=== PATIENT | female | born 1950 | race American Indian/Alaskan Native ===

== ENCOUNTER 2016-10-13 11:12 | Outpatient (CLI) | payer MEDICARE ==
--- NOTE | 2016-10-14 08:41 | Mammography Report ---
BILATERAL DIGITAL SCREENING MAMMOGRAM with CAD: 10/13/16 11:12:00 CLINICAL: Routine screening. COMPARISON: 02/13/14 FINDINGS: The breasts are predominant fatty with a few bilateral scattered fibroglandular densities.No mass, architectural distortion or suspicious calcifications. IMPRESSION: No mammographic evidence of malignancy. BI-RADS CATEGORY: 1 -- Negative RECOMMENDATION: Routine mammographic screening in one year. COMMENT: Patient follow-up letters are generated by our [employer] application.
== END 2016-10-13 11:13 | disposition home or self-care (01) ==
LOC: MAMMO 11:12
PROVIDERS: ATTEND Internal Medicine
DX: Z12.31 Encounter for screening mammogram for malignant neoplasm of breast (principal)
CPT/HCPCS: 77067; G0202

== ENCOUNTER 2017-01-19 08:45 | Outpatient (CLI) | payer MEDICARE ==
[2017-01-19 09:59] LABS: Alanine Aminotransferase 14 units/L (7-56); Albumin 4.3 g/dL (3.9-5); Albumin/Globulin Ratio 1.3 %; Alkaline Phosphatase 45 units/L (35-129); Anion Gap 21 mmol/L; Blood Urea Nitrogen 21 mg/dL (7-17); Calcium 9.9 mg/dL (8.4-10.2); Carbon Dioxide 22 mmol/L (22-30); Chloride 102.5 mmol/L (98-107); Cholesterol 175 mg/dL (50-199); Glucose 105 mg/dL (65-100); HDL Cholesterol 63 mg/dL (40-59); LDL Cholesterol,Direct 93 mg/dL (50-130); Sodium 141 mmol/L (137-145); Total Protein 7.6 g/dL (6.3-8.2); Triglycerides 97 mg/dL (2-149); Uric Acid 5.4 mg/dL (3.5-7.6)
[2017-01-19 10:12] LABS: Basophils % (Auto) 0.9 % (0.0-1.8); Eosinophils % (Auto) 2.8 % (0.0-4.3); Hematocrit 32.6 % (30.3-42.9); Hemoglobin 11.1 gm/dl (10.1-14.3); Mean Corpuscular HGB Conc 34 % (30-34); Mean Corpuscular Hemoglobin 29 pg (28-32); Mean Corpuscular Volume 86 fl (79-97); Platelet Count 183 K/mm3 (140-440); Red Blood Count 3.79 M/mm3 (3.65-5.03); Red Cell Distribution Width 13.6 % (13.2-15.2); White Blood Count 5.6 K/mm3 (4.5-11.0)
[2017-01-21 18:34] LABS: Vitamin D, 25-OH, Total 28 ng/mL (30-100)
== END 2017-01-19 08:46 | disposition home or self-care (01) ==
LOC: LABHHL 08:45
PROVIDERS: ATTEND Internal Medicine
DX: E11.9 Type 2 diabetes mellitus without complications (principal); I10 Essential (primary) hypertension; E78.00 Pure hypercholesterolemia, unspecified; F32.9 Major depressive disorder, single episode, unspecified; F41.9 Anxiety disorder, unspecified; Z79.899 Other long term (current) drug therapy
CPT/HCPCS: 36415; 80053; 80061; 82306; 82607; 83036; 84443; 84550; 85025

== ENCOUNTER 2017-11-23 09:28 | Outpatient (CLI) | payer MEDICARE ==
--- NOTE | 2017-11-23 14:41 | Mammography Report ---
BILATERAL MAMMOGRAM: FINDINGS: The breasts are almost entirely fat (<25% glandular). No mass, distortion, suspicious calcification, or skin change is seen. No interval change compared to prior examination in October 2016. CAD was utilized. IMPRESSION: Negative mammogram. There is no mammographic evidence of malignancy. RECOMMENDATION: Follow-up per ACS guidelines. BI-RADS CATEGORY: 1 = Negative ACR BI-RADS MAMMOGRAPHIC CODES: 0 = Needs additional imaging evaluation; 1 = Negative; 2 = Benign; 3 = Probably benign; 4 = Suspicious; 5 = Malignant; 6 = Known biopsy-proven malignancy COMMENT: 1. Dense breast tissue, i.e., adenosis, fibrocystic changes, etc., may obscure an underlying neoplasm. 2. Approximately 10% of cancers are not detected with mammography. 3. A negative mammography report should not delay biopsy if a clinically suspicious mass is present. COMMENT: Patient follow-up letters are generated in [employer].
== END 2017-11-23 09:29 | disposition home or self-care (01) ==
LOC: MAMMO 09:28
PROVIDERS: ATTEND Internal Medicine
DX: Z12.31 Encounter for screening mammogram for malignant neoplasm of breast (principal); I10 Essential (primary) hypertension; E78.00 Pure hypercholesterolemia, unspecified; K21.9 Gastro-esophageal reflux disease without esophagitis
CPT/HCPCS: 77067

== ENCOUNTER 2018-09-07 15:57 | Inpatient (IN) | payer MEDICARE ==
--- NOTE | 2018-09-07 16:53 | Emergency Department Report ---
HPI - General Chief Complaint: Fall Time Seen by Provider: 09/07/18 16:20 - HPI HPI: 68-year-old female presents to the emergency department from [place] via EMS with complaint of a unwitnessed fall. One of the employees of the psych facility is currently at bedside and says that they heard some sounds from down the [place]z and saw her on the ground. However she immediately got up and was seen walking around afterwards. She only has the complaint of some right-sided neck pain. She has a past medical history of hypertension. The patient is a poor historian. She is currently at the psych facility secondary to some hallucinations and/or delusions as stated on her 1013 which was placed on her yesterday at . The patient does not speak much Tajik and our patient life assurance representative, Cherelle, was helping with translation. ED Past Medical Hx - Past Medical History Hx Hypertension: Yes Hx Diabetes: Yes - Social History Smoking Status: Never Smoker Substance Use Type: None - Medications Home Medications: Home Medications Medication Instructions Recorded Confirmed Last Taken Type Aspirin BABY CHEW TAB 81 mg PO DAILY 09/17/15 09/17/15 09/15/15 History Fenofibrate 48 mg PO DAILY 09/17/15 09/17/15 09/16/15 History Potassium 8 meq PO DAILY 09/17/15 09/17/15 09/16/15 History RX: risperiDONE [RisperiDONE] 1 mg PO BID 09/17/15 09/17/15 09/16/15 History Valsartan/Hydrochlorothiazide 160 mg PO DAILY 09/17/15 09/17/15 09/17/15 History clonazePAM 0.5 mg PO DAILY 09/17/15 09/17/15 09/16/15 History clonazePAM 1 mg PO HS 09/17/15 09/17/15 09/16/15 History . ED Review of Systems ROS: Stated complaint: FALL Other details as noted in HPI Comment: All other systems reviewed and negative Constitutional: denies: chills, fever Eyes: denies: eye pain, vision change ENT: denies: ear pain, throat pain Respiratory: denies: cough, shortness of breath Cardiovascular: denies: chest pain, palpitations Gastrointestinal: denies: abdominal pain, vomiting Genitourinary: denies: dysuria, discharge Musculoskeletal: arthralgia. denies: back pain Skin: denies: rash, lesions Neurological: denies: headache, numbness Physical Exam - Physical Exam Vital Signs: Vital Signs 09/07/18 09/07/18 09/07/18 16:28 16:30 16:31 Temperature 97.8 F 97.8 F 97.7 F Pulse Rate 98 H 98 H 96 H Respiratory 18 18 18 Rate Blood Pressure 117/52 Blood Pressure 117/52 125/49 [Left] O2 Sat by Pulse 99 99 98 Oximetry Physical Exam: GENERAL: The patient is well-developed well-nourished. HEENT: Normocephalic. Atraumatic. Patient has moist mucous membranes. EYES: Extraocular motions are intact. Pupils are equal and reactive to light bilaterally. No nystagmus. NECK: Supple. Trachea is midline. CHEST/LUNGS: Clear to auscultation. There is no respiratory distress noted. HEART/CARDIOVASCULAR: Regular. There is no tachycardia. There is no obvious murmur. ABDOMEN: Abdomen is soft, nontender. Patient has normal bowel sounds. There is no abdominal distention. SKIN: Skin is warm and dry. NEURO: The patient is awake, alert, and oriented. The patient is cooperative. The patient has no focal neurologic deficits. The patient has normal speech. No facial asymmetry. No pronator drift. MUSCULOSKELETAL: There is no tenderness or deformity. There is no evidence of acute injury. ED Course Vital Signs 09/07/18 09/07/18 09/07/18 16:28 16:30 16:31 Temperature 97.8 F 97.8 F 97.7 F Pulse Rate 98 H 98 H 96 H Respiratory 18 18 18 Rate Blood Pressure 117/52 Blood Pressure 117/52 125/49 [Left] O2 Sat by Pulse 99 99 98 Oximetry ED Medical Decision Making - Lab Data Result diagrams: 09/07/18 16:56 09/07/18 16:56 - Radiology Data Radiology results: report reviewed PROCEDURE: CT CERVICAL SPINE WO CON TECHNIQUE: Computerized tomography of the cervical spine was performed from the skull base to T1 without contrast material. HISTORY: Trauma . Pain. COMPARISONS: None . FINDINGS: No fracture or subluxation is seen. The prevertebral soft tissues appear normal. Posterior elements appear intact. Mild facet arthritis visualized bilaterally. Bone density appears normal. Diffuse disc space narrowing is seen throughout the cervical spine. Bulky anterior osteophytic spurs are present throughout the mid cervical spine. Smaller posterior osteophytic spurs are present at C2-3 through the C6-C7 disc space greatest at C6-C7. There are posterior osteophytic spurs at C5-C6 obscure the anterior epidural space without definite cord compression. At C6-C7 these posterior osteophytic spurs obscuring the anterior epidural space and appear to be mildly compressing the anterior surface of the cord centrally. Calcifications are seen in the arredondo of the carotid arteries indicating atherosclerotic disease. Impression: No fracture or subluxation is seen. Degenerative disc disease and facet arthritis is present as described. Degenerative disc disease is greatest at the C6-C7 level with disc space narrowing and posterior osteophytic spurring obscuring the anterior epidural space and appears to be mildly compressing the anterior surface of the cord centrally. Posterior osteophytic spurs C5-C6 obscuring the anterior epidural space and appear to be resting on the cord. Additional small posterior osteophytic spurs are present at C2-3 through the C4-5 level. No facet arthritis. Atherosclerosis carotid arteries. . This document is electronically signed by Raza Eric MD., September 07 2018 05:41:14 PM ET Transcribed By: DFPanda Dictated By: RAZA ERIC MD Electronically Authenticated By: RAZA ERIC MD Signed Date/Time: 09/07/18 3889 PROCEDURE: CT HEAD/BRAIN WO CON TECHNIQUE: Computerized tomography of the head was performed without contrast material. HISTORY: Trauma . Pain. COMPARISONS: None . FINDINGS: Brain: Brain density appears normal. No evidence of intracranial hemorrhage. No parenchymal hemorrhage, mass lesions or mass effect are seen. No abnormal extra-axial fluid collects or masses are seen. Ventricles: Ventricles are normal size and are midline. Bone Windows: No evidence of skull fracture. Paranasal sinuses: Visualized portions are clear.. Mastoid air cells: Clear. IMPRESSION: Negative unenhanced CT of the brain. This document is electronically signed by Raza Eric MD., September 07 2018 05:35:12 PM ET Transcribed By: DFN Dictated By: RAZA ERIC MD Electronically Authenticated By: RAZA ERIC MD Signed Date/Time: 09/07/18 1738 - Medical Decision Making This patient presents to the emergency department from her psychiatric facility after having an unwitnessed fall. Her only complaint was pain to the right side of the neck. CT scan of the head did not show any bleed, shift, mass, ischemia or any other acute process. CT of the cervical spine did not show any fracture, subluxation or any acute process. Patient's labs were mostly unremarkable except for renal failure with a GFR of 28. The last time the patient was here, 3 months ago, she had normal kidney function. The patient's labs were mostly unremarkable including a CBC, troponin, TSH. Patient will be admitted to the hospital for further evaluation of her fall, generalized weakness, acute kidney injury. The patient has a [address] from her inpatient psychiatric facility. She was accepted for admission by the hospitalist, Dr. Sandoval. Critical Care Time: No Critical care attestation.: If time is entered above; I have spent that time in minutes in the direct care of this critically ill patient, excluding procedure time. ED Disposition Clinical Impression: Encephalopathy Schizophrenia Qualifiers: Schizophrenia type: unspecified Qualified Code(s): F20.9 - Schizophrenia, unspecified Acute renal failure Qualifiers: Acute renal failure type: unspecified Qualified Code(s): N17.9 - Acute kidney failure, unspecified Disposition: 09 OP ADMIT IP TO THIS HOSP Is pt being admited?: Yes Condition: Fair Time of Disposition: :29 - Assessment Assessment Interval: Baseline - Level of Consciousness 1a. Level of Consciousness: alert/keenly responsive - LOC Questions 1b. LOC Questions: answers both correctly - LOC Command 1c. LOC Commands: performs tasks correctly - Best Gaze 2. Best Gaze: normal - Visual 3. Visual: no visual loss - Facial Palsy 4. Facial Palsy: normal symmetrical movement - Motor Arm 5b. Motor Arm Right: no drift 5a. Motor Arm Left: no drift - Motor Leg 6b. Motor Leg Right: no drift 6a. Motor Leg Left: no drift - Limb Ataxia 7. Limb Ataxia: absent - Sensory 8. Sensory: normal - Best Language 9. Best Language: no aphasia - Dysarthria 10. Dysarthria: normal - Extinction and Inattention 11. Extinction/Inattention: no abnormality - Scoring Total Score: 0 Stroke Severity: No Stroke Symptoms
[2018-09-07 17:22] LABS: Basophils % (Auto) 0.5 % (0.0-1.8); Eosinophils # (Auto) 0.1 K/mm3 (0.0-0.4); Hematocrit 31.9 % (30.3-42.9); Hemoglobin 10.7 gm/dl (10.1-14.3); Lymphocytes # (Auto) 1.6 K/mm3 (1.2-5.4); Lymphocytes % (Auto) 27.5 % (13.4-35.0); Mean Corpuscular HGB Conc 34 % (30-34); Mean Corpuscular Volume 88 fl (79-97); Monocytes # (Auto) 0.5 K/mm3 (0.0-0.8); Platelet Count 225 K/mm3 (140-440); Red Blood Count 3.63 M/mm3 (3.65-5.03); Red Cell Distribution Width 14.2 % (13.2-15.2)
--- NOTE | 2018-09-07 17:38 | Cat Scan Report ---
PROCEDURE: CT HEAD/BRAIN WO CON TECHNIQUE: Computerized tomography of the head was performed without contrast material. HISTORY: Trauma . Pain. COMPARISONS: None . FINDINGS: Brain: Brain density appears normal. No evidence of intracranial hemorrhage. No parenchymal hemorr martha, mass lesions or mass effect are seen. No abnormal extra-axial fluid collects or masses are see n. Ventricles: Ventricles are normal size and are midline. Bone Windows: No evidence of skull fracture. Paranasal sinuses: Visualized portions are clear.. Mastoid air cells: Clear. IMPRESSION: Negative unenhanced CT of the brain. This document is electronically signed by Willi Arellano MD., September 07 2018 05:35:12 PM ET
--- NOTE | 2018-09-07 17:43 | Cat Scan Report ---
PROCEDURE: CT CERVICAL SPINE WO CON TECHNIQUE: Computerized tomography of the cervical spine was performed from the skull base to T1 wit hout contrast material. HISTORY: Trauma . Pain. COMPARISONS: None . FINDINGS: No fracture or subluxation is seen. The prevertebral soft tissues appear normal. Posterior elements a ppear intact. Mild facet arthritis visualized bilaterally. Bone density appears normal. Diffuse disc space narrowing is seen throughout the cervical spine. Bulky anterior osteophytic spurs are present t hroughout the mid cervical spine. Smaller posterior osteophytic spurs are present at C2-3 through the C6-C7 disc space greatest at C6-C7. There are posterior osteophytic spurs at C5-C6 obscure the anter ior epidural space without definite cord compression. At C6-C7 these posterior osteophytic spurs obsc uring the anterior epidural space and appear to be mildly compressing the anterior surface of the cor d centrally. Calcifications are seen in the arredondo of the carotid arteries indicating atherosclerotic disease. Impression: No fracture or subluxation is seen. Degenerative disc disease and facet arthritis is present as described. Degenerative disc disease is g reatest at the C6-C7 level with disc space narrowing and posterior osteophytic spurring obscuring the anterior epidural space and appears to be mildly compressing the anterior surface of the cord centra lly. Posterior osteophytic spurs C5-C6 obscuring the anterior epidural space and appear to be resting on the cord. Additional small posterior osteophytic spurs are present at C2-3 through the C4-5 level . No facet arthritis. Atherosclerosis carotid arteries. . This document is electronically signed by Willi Arellano MD., September 07 2018 05:41:14 PM ET
[2018-09-07 17:47] LABS: BUN/Creatinine Ratio 19; Blood Urea Nitrogen 40 mg/dL (7-17); Hemolysis Index 5
[2018-09-07] MEDS ORDERED: K-DUR PO ONE (17:49)
[2018-09-07] MEDS ORDERED: NACL 0.9% 1000 ML 1,000 ML IV ONE (17:52)
--- NOTE | 2018-09-07 19:53 | History and Physical Report ---
History of Present Illness Chief complaint: confused History of present illness: 68 YO Female who is currently a resident at [facility] with HTN, DM, Schizophrenia presents to ED for evaluation. Pt is confused and unable to provide detailed history. Pt history taken from EMS and medical record. As per staff, the patient was acting confused and experienced right sided neck pain, and subsequently fell to the ground. EMS notified, and upon arrival the patient was found to be confused. Pt transported to [facility] for further care and evaluation. Pt seen and evaluated in ED and found to have Encephalopathy, and symptoms co nsistent with CVA. Pt admitted to telemetry, and initiated on CVA protocol. 1013 placed in ED. No further history obtainable. Gas Pump Attendant present during exam and interview. No further history obtainable. Past History Past Medical History: diabetes, hypertension, other (Schizophrenia) Past Surgical History: No surgical history, Other (Unable to obtain) Social history: Family history: no significant family history (unable to obtain) Medications and Allergies Allergies Allergy/AdvReac Type Severity Reaction Status Date / Time No Known Allergies Allergy Verified 09/17/15 10:37 Home Medications Medication Instructions Recorded Confirmed Last Taken Type Aspirin BABY CHEW TAB 81 mg PO DAILY 09/17/15 09/17/15 09/15/15 History Fenofibrate 48 mg PO DAILY 09/17/15 09/17/15 09/16/15 History Potassium 8 meq PO DAILY 09/17/15 09/17/15 09/16/15 History Valsartan/Hydrochlorothiazide 160 mg PO DAILY 09/17/15 09/17/15 09/17/15 History clonazePAM 0.5 mg PO DAILY 09/17/15 09/17/15 09/16/15 History clonazePAM 1 mg PO HS 09/17/15 09/17/15 09/16/15 History . risperiDONE [RisperiDONE] 1 mg PO BID 09/17/15 09/17/15 09/16/15 History Review of Systems ROS unobtainable: due to mental status Exam - Constitutional Vitals: Temp Pulse Resp BP Pulse Ox 97.7 F 96 H 18 125/49 98 09/07/18 16:31 09/07/18 16:31 09/07/18 17:45 09/07/18 16:31 09/07/18 17:45 General appearance: Present: mild distress - EENT Eyes: Present: PERRL ENT: hearing intact, clear oral mucosa - Neck Neck: Present: supple, normal ROM - Respiratory Respiratory effort: normal Respiratory: bilateral: CTA - Cardiovascular Heart Sounds: Present: S1 & S2. Absent: rub, click - Extremities Extremities: pulses symmetrical, No edema Peripheral Pulses: within normal limits - Abdominal General gastrointestinal: Present: soft, non-tender, non-distended, normal bowel sounds Female genitourinary: Present: normal - Integumentary Integumentary: Present: clear, warm, dry - Musculoskeletal Musculoskeletal: generalized weakness - Psychiatric Psychiatric: no appropriate mood/affect, no intact judgment & insight, no memory intact - Neurologic Neurologic: CNII-XII intact, moves all extremities, no gait normal Results - Labs CBC & Chem 7: 09/07/18 16:56 03 16:56 Labs: Abnormal lab results 09/07/18 09/07/18 Range/Units 16:56 16:56 RBC 3.63 L (3.65-5.03) M/mm3 Cannon % (Auto) 9.0 H (0.0-7.3) % Potassium 3.3 L (3.6-5.0) mmol/L Carbon Dioxide 21 L (22-30) mmol/L BUN 40 H (7-17) mg/dL Creatinine 2.1 H (0.7-1.2) mg/dL Glucose 119 H (65-100) mg/dL Assessment and Plan - Patient Problems (1) CVA (cerebral vascular accident) Current Visit: Yes Status: Acute Qualifiers: Laterality of affected vessel: unspecified Plan to address problem: Admit to telemetry: CT head, MRI, MRA, Echo, Carotid doppler, Statin therapy, lipid panel, Neurology consulted, neuro checks, (2) Encephalopathy Current Visit: Yes Status: Acute Plan to address problem: CT head, neuro checks, seizure precautions, (3) Schizophrenia Current Visit: Yes Status: Acute Qualifiers: 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 - Assessment Assessment Interval: Baseline - Level of Consciousness 1a. Level of Consciousness: alert/keenly responsive - LOC Questions 1b. LOC Questions: answers both correctly - LOC Command 1c. LOC Commands: performs tasks correctly - Best Gaze 2. Best Gaze: normal - Visual 3. Visual: no visual loss - Facial Palsy 4. Facial Palsy: normal symmetrical movement - Motor Arm 5b. Motor Arm Right: no drift 5a. Motor Arm Left: no drift - Motor Leg 6b. Motor Leg Right: no movement 6a. Motor Leg Left: no drift - Limb Ataxia 7. Limb Ataxia: absent - Sensory 8. Sensory: normal - Best Language 9. Best Language: no aphasia - Dysarthria 10. Dysarthria: normal - Extinction and Inattention 11. Extinction/Inattention: no abnormality - Scoring Total Score: 4 Stroke Severity: Minor Stroke
[2018-09-07] MEDS ORDERED: ZOFRAN IV PRN (19:54)
[2018-09-07] MEDS ORDERED: DULCOLAX PR PRN (19:54)
[2018-09-07] MEDS ORDERED: MILK OF MAGNESIA PO PRN (19:54)
[2018-09-07] MEDS ORDERED: TYLENOL PO PRN (19:54)
[2018-09-07] MEDS ORDERED: REGLAN PO PRN (19:54)
[2018-09-07] MEDS ORDERED: SODIUM CHLORIDE FLUSH SYRINGE 10 ML IV PRN (19:54)
[2018-09-07] MEDS ORDERED: PHENERGAN PR PRN (19:54)
[2018-09-07] MEDS ORDERED: NON-FORMULARY (Clonazepam 1 MG) PO SCH (22:00)
[2018-09-07] MEDS: RisperDAL PO SCH (23:03)
[2018-09-08 09:30] LABS: Chol/HDL Ratio 2.34 %
[2018-09-08] MEDS ORDERED: FENOFIBRATE 48 MG PO SCH (10:00)
[2018-09-08] MEDS ORDERED: POTASSIUM 8 MEQ PO SCH (10:00)
[2018-09-08] MEDS ORDERED: CLONAZEPAM 0.5 MG PO SCH (10:00)
--- NOTE | 2018-09-08 11:58 | Magnetic Resonance Report ---
MRI BRAIN WITHOUT CONTRAST: 09/08/18 CLINICAL: Stroke. TECHNIQUE: Axial diffusion, T1, T2, gradient echo T2*, coronal and axial FLAIR and sagittal T1 sequences on a 1.5 Ana Cristina magnet. FINDINGS: The ventricles and sulci are normal for age. No restricted diffusion and no abnormal signal on T1, T2, FLAIR or gradient echo sequences. No cerebral microbleeds. No hemorrhage, edema or extra-axial collection. No mass or mass effect. Normal pituitary and optic chiasm. The brainstem and cerebellum are normal. Intact vascular flow voids. Normal sinuses. The orbits, and soft tissues are normal. Normal calvarium and skull base. IMPRESSION: Normal study. No evidence of infarct or hemorrhage.
--- NOTE | 2018-09-08 11:59 | Magnetic Resonance Report ---
MRA HEAD WITHOUT CONTRAST: 09/08/18 CLINICAL: Stroke. TECHNIQUE: Axial 3-D thys-bi-csslne MR angiography of the mcgrath of Delgado with review of axial source images. FINDINGS: Intact mcgrath of [place] with no aneurysm, stenosis or occlusion. Symmetric blood flow in the anterior, middle and posterior cerebral arteries. Normal basilar and vertebral arteries. IMPRESSION: Normal study.
[2018-09-08] MEDS: RisperDAL PO SCH ×2 (12:18→21:13)
[2018-09-08] MEDS: ASPIRIN PO SCH (12:18)
[2018-09-08] MEDS: TRICOR PO SCH (12:18)
--- NOTE | 2018-09-08 13:18 | Progress Note ---
Assessment and Plan Assessment and plan: Patient is a 68 woman from [facility] with a history of HTN, DM type 2 and Schizophrenia who presented to [facility] ED with AMS, admitted to rule out CVA. * 2D ECHO Conclusions: Global left ventricular wall motion and contractility are within normal limits, estimated EF 55-60%, abnormal left ventricular diastolic filling is observed consistent with impaired relaxation, no atrial septal defected is demonstrated by agitated saline contrast -AMS due to acute undifferentiated metabolic encephalopathy -Schizophrenia: mental health to evaluate, under 1013 -no CVA, negative mri, mra for acute stroke -DM type 2: ada, ssi -Hypertension: low salt diet and antihypertensives. History Interval history: Patient was seen and examined. Follow-up on current diagnosis. Overnight uneventful. Patient denies any chest pain, shortness breath, nausea/vomiting or severe headaches. Imaging, nursing note, chart, labs and old chart reviewed. Discussed with patient. Hospitalist Physical - Physical exam Narrative exam: Gen: WDWN, NAD, Awake, taking incomprehensible things using Language line HEENT: NCAT, EOMI, PERRL, OP Clear Neck: supple, no adenopathy, no thyromegaly, no JVD CVS/Heart: RRR, normal S1S2, pulses present bilaterally Chest/Lungs: CTA B, Symmetrical chest expansion, good air entry bilaterally GI/Abdomen: soft, NTND, good bowel sounds, no guarding or rebound /Bladder: no suprapubic tenderness, no CVA or paraspinal tenderness Extermity/Skin: no c/c/e, no obvious rash MSK: FROM x 4 Neuro: CN 2-12 grossly intact, no new focal deficits Psych: confused - Constitutional Vitals: Temp Pulse Resp BP Pulse Ox 98.1 F 99 H 18 118/52 99 09/08/18 12:37 09/08/18 12:37 09/08/18 12:37 09/08/18 12:37 09/08/18 12:37 Results - Labs CBC & Chem 7: 09/07/18 16:56 09/07/18 16:56 Labs: Laboratory Last Values WBC 5.7 K/mm3 (4.5-11.0) 09/07/18 16:56 RBC 3.63 M/mm3 (3.65-5.03) L 09/07/18 16:56 Hgb 10.7 gm/dl (10.1-14.3) 09/07/18 16:56 Hct 31.9 % (30.3-42.9) 09/07/18 16:56 MCV 88 fl (79-97) 09/07/18 16:56 MCH 30 pg (28-32) 09/07/18 16:56 MCHC 34 % (30-34) 09/07/18 16:56 RDW 14.2 % (13.2-15.2) 09/07/18 16:56 Plt Count 225 K/mm3 (140-440) 09/07/18 16:56 Lymph % (Auto) 27.5 % (13.4-35.0) 09/07/18 16:56 Schleicher % (Auto) 9.0 % (0.0-7.3) H 09/07/18 16:56 Eos % (Auto) 1.0 % (0.0-4.3) 09/07/18 16:56 Baso % (Auto) 0.5 % (0.0-1.8) 09/07/18 16:56 Lymph # 1.6 K/mm3 (1.2-5.4) 09/07/18 16:56 Schleicher # 0.5 K/mm3 (0.0-0.8) 09/07/18 16:56 Eos # 0.1 K/mm3 (0.0-0.4) 09/07/18 16:56 Baso # 0.0 K/mm3 (0.0-0.1) 09/07/18 16:56 Seg Neutrophils % 62.0 % (40.0-70.0) 09/07/18 16:56 Seg Neutrophils # 3.6 K/mm3 (1.8-7.7) 09/07/18 16:56 Sodium 140 mmol/L (137-145) 09/07/18 16:56 Potassium 3.3 mmol/L (3.6-5.0) L 09/07/18 16:56 Chloride 102.1 mmol/L (98-107) 09/07/18 16:56 Carbon Dioxide 21 mmol/L (22-30) L 09/07/18 16:56 Anion Gap 20 mmol/L 09/07/18 16:56 BUN 40 mg/dL (7-17) H 09/07/18 16:56 Creatinine 2.1 mg/dL (0.7-1.2) H 09/07/18 16:56 Estimated GFR 28 ml/min 09/07/18 16:56 BUN/Creatinine Ratio 19 % 09/07/18 16:56 Glucose 119 mg/dL (65-100) H 09/07/18 16:56 Calcium 9.0 mg/dL (8.4-10.2) 09/07/18 16:56 Troponin T < 0.010 ng/mL (0.00-0.029) 09/07/18 16:56 Triglycerides 139 mg/dL (2-149) 09/08/18 05:25 Cholesterol 110 mg/dL (50-199) 09/08/18 05:25 LDL Cholesterol Direct 54 mg/dL (50-130) 09/08/18 05:25 HDL Cholesterol 47 mg/dL (40-59) 09/08/18 05:25 Cholesterol/HDL Ratio 2.34 % 09/08/18 05:25 TSH 2.260 mlU/mL (0.270-4.200) 09/07/18 16:56
--- NOTE | 2018-09-08 14:29 | Consultation ---
History of Present Illness - Reason for Consult Consult date: 09/08/18 Reason for consult: Initial Psychiatric Evaluation - Chief Complaint Chief complaint: Fine" - History of Present Psychiatric Illness Patient is a 68-year-old female that presents to the emergency department from [facility] via EMS with complaint of a unwitnessed fall. One of the employees of the psych facility is currently at bedside and says that they heard some sounds from down the [place] and saw her on the ground. Today patient is calm and cooperative during the assessment. Her nephew, sister, and brother are at the bedside. Per collateral patient has a past psychiatric history of schizophrenia. Patient was admitted to [facility] for psychosis and being noncompliant with medication. Family is requesting that patient do not return to [facility] and be transferred to another psychiatric facility. Per family/sister patient is confused and disoriented. Current Psychiatric Medications: Klonopin 0.5 mg po QAM, Klonopin 1mg po qhs, Clozapine 200mg po QHS, Risperdal 1mg po QHS- provider seen rx bottles. Past Psychiatric History: Schizophrenia (15 years ago); More than 5 previous inpatient hospitalizations ( [place] and [place]); outpatient psychiatrist Dr. Dalton; per family " no." Past Medication Trials: Valium. Other medication names are unknown. History Drug/Substance Abuse: Per collateral patient denies. History of Trauma/Abuse: Per collateral patient denies sexual, physical, and mental abuse. Social History: College graduate- [employer]; monthly income- social security/disability; no children; no pending legal issues; . Family History of Psychiatric Illness/ Substance Abuse: Brother- paranoid angelica [place]. Medications and Allergies Allergies Allergy/AdvReac Type Severity Reaction Status Date / Time No Known Allergies Allergy Verified 09/17/15 10:37 Home Medications Medication Instructions Recorded Confirmed Last Taken Type Aspirin BABY CHEW TAB 81 mg PO DAILY 09/17/15 09/08/18 3 Days Ago History ~09/05/18 Fenofibrate 48 mg PO DAILY 09/17/15 09/08/18 3 Days Ago History ~09/05/18 Potassium 8 meq PO DAILY 09/17/15 09/08/18 3 Days Ago History ~09/05/18 Valsartan/Hydrochlorothiazide 160 mg PO DAILY 09/17/15 09/08/18 3 Days Ago History ~09/05/18 clonazePAM 0.5 mg PO DAILY 09/17/15 09/08/18 3 Days Ago History ~09/05/18 clonazePAM 1 mg PO HS 09/17/15 09/08/18 3 Days Ago History ~09/05/18 risperiDONE [RisperiDONE] 1 mg PO BID 09/17/15 09/08/18 3 Days Ago History ~09/05/18 cloZAPine 200 mg PO QHS 09/08/18 09/08/18 3 Days Ago History ~09/05/18 Active Meds: Active Medications Acetaminophen (Tylenol) 650 mg PO Q4H PRN PRN Reason: Pain, Mild (1-3) Aspirin (Aspirin) 325 mg PO QDAY [facility] Last Admin: 09/08/18 12:18 Dose: 325 mg Documented by: Atorvastatin Calcium (Lipitor) 40 mg PO QHS [facility] Last Admin: 09/07/18 23:03 Dose: 40 mg Documented by: Bisacodyl (Dulcolax) 10 mg [place] QDAY PRN PRN Reason: Constipation Clonazepam (Klonopin) 0.5 mg PO QDAY [facility] Last Admin: 09/08/18 12:18 Dose: 0.5 mg Documented by: Clonazepam (Klonopin) 1 mg PO QHS [facility] Last Admin: 09/07/18 23:03 Dose: 1 mg Documented by: Fenofibrate (Tricor) 48 mg PO DAILY [facility] Last Admin: 09/08/18 12:18 Dose: 48 mg Documented by: Magnesium Hydroxide (Milk Of Magnesia) 30 ml PO Q4H PRN PRN Reason: Constipation Metoclopramide HCl (Reglan) 10 mg PO Q6H PRN PRN Reason: Nausea And Vomiting Ondansetron HCl (Zofran) 4 mg IV Q8H PRN PRN Reason: Nausea And Vomiting Potassium Chloride (Klor-Con 8) 8 meq PO QDAY [facility] Promethazine HCl (Phenergan) 25 mg [place] Q6H PRN PRN Reason: Nausea And Vomiting Risperidone (Risperdal) 1 mg PO BID [facility] Last Admin: 09/08/18 12:18 Dose: 1 mg Documented by: Sodium Chloride (Sodium Chloride Flush Syringe 10 Ml) 10 ml IV PRN PRN PRN Reason: LINE FLUSH Mental Status Exam - Vital signs Last Vital Signs Temp 98.1 F 09/08/18 12:37 Pulse 99 H 09/08/18 12:37 Resp 18 09/08/18 12:37 BP 118/52 09/08/18 12:37 Pulse Ox 99 09/08/18 12:37 - Exam Narrative exam: Mental Status Exam Appearance: calm, cooperative Behavior: regular eye contact; guarded/withdrawn Speech: regular rate and loud tone; Italian speaking Mood: "I'm fine"; dysphoric Affect: incongruent to mood Thought Process: linear Thought Content: denies SI/HI's ; + AH's " The voices tell me people are in danger." ; denies paranoid delusions and VH's Motor Activity: sitting up in the bed Cognition: A/O x 1 to person; disoriented to place and time Insight: variable Judgment: variable Results Result Diagrams: 09/07/18 16:56 09/07/18 16:56 Abnormal lab results 09/07/18 09/07/18 Range/Units 16:56 16:56 RBC 3.63 L (3.65-5.03) M/mm3 [place] % (Auto) 9.0 H (0.0-7.3) % Potassium 3.3 L (3.6-5.0) mmol/L Carbon Dioxide 21 L (22-30) mmol/L BUN 40 H (7-17) mg/dL Creatinine 2.1 H (0.7-1.2) mg/dL Glucose 119 H (65-100) mg/dL All other labs normal. Assessment and Plan Assessment and plan: Impression: PPHx Schizophrenia. Psychosis unspecified. Today the patient is calm and cooperative during the assessment. Appears guarded and withdrawn. Denies SI/HI's and VH's. DDx: R/O Bipolar DO Recommendation/Plan: 1. Will reassess in 24 hours. 2. To gain collateral contact Sly- nephew at [phone]. 3. Continue the following medications: Klonopin 0.5mg po QAM (anxiety), 1mg po QHS (anxiety), Risperdal 1mg po BID(psychosis). Discussed possible metabolic and anticholinergic side effects of Risperdal and Klonopin. Patient verbalizes minimal understanding. Disposition: Will refer to inpatient psychiatric services. Will staff with Dr. Savanna Flowers.
--- NOTE | 2018-09-08 15:07 | Vascular Lab Report ---
PROCEDURE: VL CAROTID DUPLEX BILAT TECHNIQUE: Duplex Doppler ultrasound of the common, internal and external carotid arteries and the v ertebral arteries was performed bilaterally. Meza scale imaging, velocity spectral waveform analysis, and color flow Doppler were employed. HISTORY: stroke COMPARISONS: None . Note: Measurement of carotid stenosis is based on flow velocity values that correlate with the [place] Symptomatic Carotid Endarterectomy Trial (NASCET) based stenosis criteria using the internal carotid artery diameter as the denominator for stenosis calculation. FINDINGS: RIGHT carotid artery: Velocities: ICA PSV: 109 cm/sec ICA End diastolic: 35 cm/sec CCA PSV: 123 cm/sec IC/CC ratio: 0. 88 Plaque/color flow: Mild heterogeneous plaque without significant spectral broadening or abnormal col or flow . Stenosis less than 50%. RIGHT vertebral artery: Antegrade systolic and diastolic flow LEFT carotid artery: Velocities: ICA PSV: 165 cm/sec ICA End diastolic: 63 cm/sec CCA PSV: 119 cm/sec IC/CC ratio: 1. 39 Plaque/color flow: Mild heterogeneous plaque without significant spectral broadening or abnormal col or flow . Flow acceleration plaque compatible with 50-69% diameter stenosis. LEFT vertebral artery: Antegrade systolic and diastolic flow IMPRESSION: 1. RIGHT carotid: No hemodynamically significant (less than 50 percent) internal carotid artery troy nosis. 2. LEFT carotid: Plaque and flow acceleration compatible with 50-69% diameter stenosis.. 3. Vertebral arteries: Bilaterally antegrade. This document is electronically signed by Gary Langley MD., September 08 2018 03:04:57 PM ET
[2018-09-08] MEDS: KLOR-CON 8 PO SCH (15:47)
--- NOTE | 2018-09-08 17:57 | Consultation ---
History of Present Illness Consult date: 09/08/18 Requesting physician: DIONISIO TY Reason for Consult: recent fall and confusion. History of present illness: 68 year old female with history of HTN, diabetes, and schizophrenia was brought to ER on 09/07/18 because of a fall and altered mental status. She apparently stood up after her fall and was ambulatory. She was admitted for further evaluation and a stroke work-up followed. The pt. is a poor historian. Matty bunn assists with translation. The patient currently denies headache, trouble with vision, dizziness, or numbness/weakness of the extremities. She is tolerating meals well without swallowing difficulty. Past History Past Medical History: diabetes, hypertension, other (Schizophrenia) Past Surgical History: No surgical history, Other (Unable to obtain) Social history: Family history: no significant family history (unable to obtain) Medications and Allergies Allergies Allergy/AdvReac Type Severity Reaction Status Date / Time No Known Allergies Allergy Verified 09/17/15 10:37 Home Medications Medication Instructions Recorded Confirmed Last Taken Type Aspirin BABY CHEW TAB 81 mg PO DAILY 09/17/15 09/08/18 3 Days Ago History ~09/05/18 Fenofibrate 48 mg PO DAILY 09/17/15 09/08/18 3 Days Ago History ~09/05/18 Potassium 8 meq PO DAILY 09/17/15 09/08/18 3 Days Ago History ~09/05/18 Valsartan/Hydrochlorothiazide 160 mg PO DAILY 09/17/15 09/08/18 3 Days Ago Hi story ~09/05/18 clonazePAM 0.5 mg PO DAILY 09/17/15 09/08/18 3 Days Ago History ~09/05/18 clonazePAM 1 mg PO HS 09/17/15 09/08/18 3 Days Ago History ~09/05/18 risperiDONE [RisperiDONE] 1 mg PO BID 09/17/15 09/08/18 3 Days Ago History ~09/05/18 cloZAPine 200 mg PO QHS 09/08/18 09/08/18 3 Days Ago History ~09/05/18 Active Meds: Active Medications Acetaminophen (Tylenol) 650 mg PO Q4H PRN PRN Reason: Pain, Mild (1-3) Aspirin (Aspirin) 325 mg PO QDAY [facility] Last Admin: 09/08/18 12:18 Dose: 325 mg Documented by: Atorvastatin Calcium (Lipitor) 40 mg PO QHS [facility] Last Admin: 09/07/18 23:03 Dose: 40 mg Documented by: Bisacodyl (Dulcolax) 10 mg [place] QDAY PRN PRN Reason: Constipation Clonazepam (Klonopin) 0.5 mg PO QDAY [facility] Last Admin: 09/08/18 12:18 Dose: 0.5 mg Documented by: Clonazepam (Klonopin) 1 mg PO QHS [facility] Last Admin: 09/07/18 23:03 Dose: 1 mg Documented by: Fenofibrate (Tricor) 48 mg PO DAILY [facility] Last Admin: 09/08/18 12:18 Dose: 48 mg Documented by: Magnesium Hydroxide (Milk Of Magnesia) 30 ml PO Q4H PRN PRN Reason: Constipation Metoclopramide HCl (Reglan) 10 mg PO Q6H PRN PRN Reason: Nausea And Vomiting Ondansetron HCl (Zofran) 4 mg IV Q8H PRN PRN Reason: Nausea And Vomiting Potassium Chloride (Klor-Con 8) 8 meq PO QDAY [facility] Last Admin: 09/08/18 15:47 Dose: 8 meq Documented by: Promethazine HCl (Phenergan) 25 mg [place] Q6H PRN PRN Reason: Nausea And Vomiting Risperidone (Risperdal) 1 mg PO BID [facility] Last Admin: 09/08/18 12:18 Dose: 1 mg Documented by: Sodium Chloride (Sodium Chloride Flush Syringe 10 Ml) 10 ml IV PRN PRN PRN Reason: LINE FLUSH Review of Systems ROS unobtainable: due to mental status Physical Examination - Vital Signs Vital Signs: Vital Signs Temp Pulse Resp BP Pulse Ox 97.8 F 98 H 18 117/52 99 09/07/18 16:28 09/07/18 16:28 09/07/18 16:28 09/07/18 16:28 09/07/18 16:28 - Physical Exam Narrative exam: General - resting quietly in bed. In no distress. Neurological exam - Speech- fluent in [place]. low voice volume. 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 V-1 thru V-3 intact bilaterally, cannot hear finger rub bilaterally. Motor - symmetric. The pt. cannot cooperate for formal strength testing. Reflexes +1 throughout. Sensory - intact touch and pin bilaterally, upper and lower extremities. Coordination - She could not understand the sruang-ba-gunt exam, but performed well on Christiana and fine finger movements. - Assessment Assessment Interval: Baseline - Level of Consciousness 1a. Level of Consciousness: alert/keenly responsive - LOC Questions 1b. LOC Questions: answers both correctly - LOC Command 1c. LOC Commands: performs tasks correctly - Best Gaze 2. Best Gaze: normal - Visual 3. Visual: no visual loss - Facial Palsy 4. Facial Palsy: normal symmetrical movement - Motor Arm 5b. Motor Arm Right: no drift - Motor Leg 6a. Motor Leg Left: no drift - Limb Ataxia 7. Limb Ataxia: absent - Sensory 8. Sensory: normal - Best Language 9. Best Language: no aphasia - Dysarthria 10. Dysarthria: normal - Extinction and Inattention 11. Extinction/Inattention: no abnormality Results - Laboratory Findings CBC and BMP: 09/07/18 16:56 09/07/18 16:56 Abnormal Lab Findings: Abnormal Labs 09/07/18 09/07/18 16:56 16:56 RBC 3.63 L [place] % (Auto) 9.0 H Potassium 3.3 L Carbon Dioxide 21 L BUN 40 H Creatinine 2.1 H Glucose 119 H Assessment and Plan 68 year old female with history of diabetes, hypertension and schizophrenia presented with a fall and AMS.A work-up for stroke has been negative including MRI scan of brain, echocardiogram (EF - 55 to 60%), carotid dopplers and MRA scan. Her exam is also nonfocal. Per the patient's nurse there may have been a medication discrepanciy at [place] where she was staying. This could certainly account for her behavior change. Plan - Continue medication as per psychiatry. No further work-up per neurology
[2018-09-09] MEDS: KLOR-CON 8 PO SCH (10:17)
[2018-09-09] MEDS: TRICOR PO SCH (10:17)
[2018-09-09] MEDS: RisperDAL PO SCH ×2 (10:18→22:34)
[2018-09-09] MEDS: ASPIRIN PO SCH (10:18)
--- NOTE | 2018-09-09 15:01 | Progress Note ---
Subjective - Reason for Consult Consult date: 09/09/18 Reason for consult: Psychiatry Follow-up - Chief Complaint Chief complaint: "Hi" 68-year-old female that presents to the emergency department from [place] via EMS with complaint of a unwitnessed fall. The shoe singer was used ([id number]) during the interview. Today the patient is calm, but preoccupied during the assessment. She answer all questions using one word answers. She was obsreved looking around the room throughout the interview, possibly responding to some type of stimuli. Per collateral information from the patient's sister Reynold Walton and family friend Haily Bartlett, they both stated that the patient was paranoid and delusional prior to being transported to [facility]. They stated that the patient had not been taking her medication and have a hx of Schizophrenia. I the provider spoke with the patient's outpatient psychiatrist Dr Dinero. He stated that the patient do not have Dementia. Also, he confirmed the patient's home medication regimen. No gestures of SI/HI's by the patient. Mental Status Exam - Vital signs Last Vital Signs Temp 98.1 F 09/09/18 12:33 Pulse 91 H 09/09/18 12:33 Resp 20 09/09/18 12:33 BP 116/50 09/09/18 12:33 Pulse Ox 98 09/09/18 12:33 - Exam Narrative exam: Appearance: calm Behavior: regular eye contact Speech: regular rate and loud tone; Gabonese speaking Mood: preoccupied Affect: congruent to mood Thought Process: disorganized Thought Content: denies SI/HI's and VH's, paranoid, delusional Motor Activity: sitting up in the bed Cognition: alert Insight: poor Judgment: poor Assessment and Plan Impression: Unspecified Psychosis. Today the patient is alisa, but disorganized during the assessment. The patient is experiencing perceptual disturbances. DDx: Schizophrenia Recommendation/Plan: Continue 1013 and home medications Klonopin 0.5 mg PO daily for anxiety, Klonopin 1 mg PO HH for anxiety, and Risperdal 1 mg PO BID for psychosis. Discussed possible metabolic side effects of Risperdal with the patient's family. Diso: The patient will be referred to inpatient psy services once medically cleared. Staffed with Dr Aleman.
--- NOTE | 2018-09-09 17:18 | Progress Note ---
Assessment and Plan Assessment and Plan Assessment and plan: Patient is a 68 woman from [facility] with a history of HTN, DM type 2 and Schizophrenia who presented to [facility] ED with AMS, admitted to rule out CVA. * 2D ECHO Conclusions: Global left ventricular wall motion and contractility are within normal limits, estimated EF 55-60%, abnormal left ventricular diastolic filling is observed consistent with impaired relaxation, no atrial septal defected is demonstrated by agitated saline contrast -AMS Improved -Schizophrenia/Psychosis-Stable,Patient from [facility] =Maybe transferred back to -no CVA, negative mri, mra for acute stroke -DM type 2: ada, ssi -Hypertension: low salt diet and antihypertensives. Medically cleared for discharge Transfer to medical floor Subjective Date of service: 09/09/18 Principal diagnosis: AMS Interval history: Patient alert and oriented Eating ICE cream Objective - Constitutional Vitals: Vital Signs - 12hr 09/09/18 09/09/18 09/09/18 05:59 07:49 09:20 Temperature 97.5 F L 98.1 F Pulse Rate 63 89 92 H Pulse Rate [ Apical] Pulse Rate [ Left Radial] Pulse Rate [ Right Radial] Respiratory 16 20 18 Rate Blood Pressure 99/42 114/56 105/54 O2 Sat by Pulse 97 98 96 Oximetry 09/09/18 09/09/18 10:00 12:33 Temperature 98.1 F Pulse Rate 100 H 91 H Pulse Rate [ 89 Apical] Pulse Rate [ 89 Left Radial] Pulse Rate [ 89 Right Radial] Respiratory 19 20 Rate Blood Pressure 116/50 O2 Sat by Pulse 99 98 Oximetry General appearance: Present: no acute distress, well-nourished - EENT Eyes: PERRL, EOM intact ENT: hearing intact, clear oral mucosa Ears: bilateral: normal - Neck Neck: supple, normal ROM - Respiratory Respiratory effort: normal Respiratory: bilateral: CTA - Breasts Breasts: normal - Cardiovascular Heart rate: 76 Rhythm: regular Heart Sounds: Present: S1 & S2. Absent: gallop, rub Extremities: no ischemia, pulses intact, No edema, normal color, Full ROM - Gastrointestinal General gastrointestinal: Present: soft, non-tender, non-distended, normal bowel sounds - Genitourinary Female genitourinary: normal - Integumentary Integumentary: clear, warm, dry - Musculoskeletal Musculoskeletal: 1, strength equal bilaterally - Neurologic Neurologic: moves all extremities - Psychiatric Psychiatric: memory intact, appropriate mood/affect, intact judgment & insight - Allied health notes Allied health notes reviewed: nursing, case management - Labs CBC & Chem 7: 09/07/18 16:56 09/07/18 16:56
--- NOTE | 2018-09-10 09:33 | Consultation ---
History of Present Illness Consult date: 09/10/18 Consult reason: other (Pause greater than 3 sec on telemetry) History of present illness: Patient is a 68 year old woman who was transferred from a psychiatric facility for evaluation following a fall. Workup for stroke has been negative including head CT scan, MRI of brain, carotid dopplers and MRA scan. Further evaluation with an echocardiogram documents a well preserved left ventricular systolic function, ejection fraction 55-60%. Negative bubble study. 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 Cardiac consultation requested. There is no chest pain, shortness of breath or dizziness. There are no medications or cardiac symptoms related to this transient pause. Patient denies syncope in the past. TSH is normal. She returned to a stable sinus rhythm and has had no further episodes. Past History Past Medical History: diabetes, hypertension, other (Schizophrenia) Social history: Family history: no significant family history (unable to obtain) Medications and Allergies Allergies Allergy/AdvReac Type Severity Reaction Status Date / Time No Known Allergies Allergy Verified 09/17/15 10:37 Home Medications Medication Instructions Recorded Confirmed Last Taken Type Aspirin BABY CHEW TAB 81 mg PO DAILY 09/17/15 09/08/18 3 Days Ago History ~09/05/18 Fenofibrate 48 mg PO DAILY 09/17/15 09/08/18 3 Days Ago History ~09/05/18 Potassium 8 meq PO DAILY 09/17/15 09/08/18 3 Days Ago History ~09/05/18 Valsartan/Hydrochlorothiazide 160 mg PO DAILY 09/17/15 09/08/18 3 Days Ago History ~09/05/18 clonazePAM 0.5 mg PO DAILY 09/17/15 09/08/18 3 Days Ago History ~09/05/18 clonazePAM 1 mg PO HS 09/17/15 09/08/18 3 Days Ago History ~09/05/18 risperiDONE [RisperiDONE] 1 mg PO BID 09/17/15 09/08/18 3 Days Ago History ~09/05/18 cloZAPine 200 mg PO QHS 09/08/18 09/08/18 3 Days Ago History ~09/05/18 Active Meds: Active Medications Acetaminophen (Tylenol) 650 mg PO Q4H PRN PRN Reason: Pain, Mild (1-3) Aspirin (Aspirin) 325 mg PO QDAY [facility] Last Admin: 09/09/18 10:18 Dose: 325 mg Documented by: Atorvastatin Calcium (Lipitor) 40 mg PO QHS [facility] Last Admin: 09/09/18 22:34 Dose: 40 mg Documented by: Bisacodyl (Dulcolax) 10 mg [place] QDAY PRN PRN Reason: Constipation Clonazepam (Klonopin) 0.5 mg PO QDAY [facility] Last Admin: 09/09/18 10:17 Dose: 0.5 mg Documented by: Clonazepam (Klonopin) 1 mg PO QHS [facility] Last Admin: 09/09/18 22:34 Dose: 1 mg Documented by: Fenofibrate (Tricor) 48 mg PO DAILY [facility] Last Admin: 09/09/18 10:17 Dose: 48 mg Documented by: Magnesium Hydroxide (Milk Of Magnesia) 30 ml PO Q4H PRN PRN Reason: Constipation Metoclopramide HCl (Reglan) 10 mg PO Q6H PRN PRN Reason: Nausea And Vomiting Ondansetron HCl (Zofran) 4 mg IV Q8H PRN PRN Reason: Nausea And Vomiting Last Admin: 09/09/18 22:13 Dose: 4 mg Documented by: Potassium Chloride (Klor-Con 8) 8 meq PO QDAY [facility] Last Admin: 09/09/18 10:17 Dose: 8 meq Documented by: Promethazine HCl (Phenergan) 25 mg [place] Q6H PRN PRN Reason: Nausea And Vomiting Risperidone (Risperdal) 1 mg PO BID [facility] Last Admin: 09/09/18 22:34 Dose: 1 mg Documented by: Sodium Chloride (Sodium Chloride Flush Syringe 10 Ml) 10 ml IV PRN PRN PRN Reason: LINE FLUSH Physical Examination Vital Signs Temp Pulse Resp BP Pulse Ox 97.8 F 98 H 18 117/52 99 09/07/18 16:28 09/07/18 16:28 09/07/18 16:28 09/07/18 16:28 09/07/18 16:28 General appearance: no acute distress HEENT: Positive: PERRL Neck: Positive: trachea midline Cardiac: Positive: Reg Rate and Rhythm Lungs: Positive: Decreased Breath Sounds Extremities: Absent: edema Results 09/07/18 16:56 09/07/18 16:56 Assessment and Plan Fall Schizophrenia Hypertension Ventricular pause on telemetry 09/09 no further episodes normal TSH Echocardiogram documents a well preserved left ventricular systolic function, ejection fraction 55-60%. Negative bubble study.
[2018-09-10] MEDS: ASPIRIN PO SCH (09:42)
[2018-09-10] MEDS: TRICOR PO SCH (09:43)
[2018-09-10] MEDS: RisperDAL PO SCH ×2 (09:43→22:03)
[2018-09-10] MEDS: KLOR-CON 8 PO SCH (09:44)
--- NOTE | 2018-09-10 10:37 | Progress Note ---
Subjective - Reason for Consult Consult date: 09/10/18 Reason for consult: Psychiatry Follow-up - Chief Complaint Chief complaint: "Hello" 68-year-old female that presents to the emergency department from [place] via EMS with complaint of a unwitnessed fall. The conference interpreter was used ([id number]) during the interview. Today the patient is calm during the assessment. She continues to be preoccupied. She denies AH's, but pauses for several seconds before she answer questions. She denies SI/HI's and AVH's. She denies any side effects of her medications. Mental Status Exam - Vital signs Last Vital Signs Temp 98.0 F 09/10/18 07:43 Pulse 79 09/10/18 07:43 Resp 20 09/10/18 07:43 BP 126/61 09/10/18 07:43 Pulse Ox 95 09/10/18 07:43 - Exam Narrative exam: MSE: Appearance: calm Behavior: regular eye contact Speech: regular rate and loud tone; latvian speaking Mood: preoccupied, guarded Affect flat Thought Process: circumstantial Thought Content: denies SI/HI's and AVH', paranoia Motor Activity: sitting up in the bed Cognition: A/O x3 Insight: poor Judgment: variable Assessment and Plan Impression: Unspecified Psychosis. Today the patient is calm during the assessment. The patient is experiencing perceptual disturbances. DDx: Schizophrenia Recommendation/Plan: Continue 1013 and home medications Klonopin 0.5 mg PO daily for anxiety, Klonopin 1 mg PO HH for anxiety, and Risperdal 1 mg PO BID for psychosis. Discussed possible metabolic side effects of Risperdal with the patient's family. Diso: The patient will be referred to inpatient psy services. Will staff with Dr Aleman.
--- NOTE | 2018-09-10 17:01 | Progress Note ---
Assessment and Plan Assessment and Plan Assessment and plan: Patient is a 68 woman from [facility] with a history of HTN, DM type 2 and Schizophrenia who presented to [facility] ED with AMS, admitted to rule out CVA. * 2D ECHO Conclusions: Global left ventricular wall motion and contractility are within normal limits, estimated EF 55-60%, abnormal left ventricular diastolic filling is observed consistent with impaired relaxation, no atrial septal defected is demonstrated by agitated saline contrast -AMS Improved -Schizophrenia/Psychosis-Stable,Patient from [place] =Maybe transferred back to -no CVA, negative mri, mra for acute stroke -DM type 2: ada, ssi -Hypertension: low salt diet and antihypertensives. Medically cleared for discharge Transfer to medical floor Subjective Date of service: 09/10/18 Principal diagnosis: AMS Interval history: Patient alert and oriented Eating ICE cream Objective - Constitutional Vitals: Vital Signs - 12hr 09/10/18 09/10/18 09/10/18 07:43 10:00 11:22 Temperature 98.0 F 98.2 F Pulse Rate 79 Pulse Rate [ 86 Apical] Pulse Rate [ 86 Left Radial] Pulse Rate [ 86 Right Radial] Respiratory 20 19 20 Rate Blood Pressure 126/61 118/56 O2 Sat by Pulse 95 99 Oximetry General appearance: Present: no acute distress, well-nourished - EENT Eyes: PERRL, EOM intact ENT: hearing intact, clear oral mucosa Ears: bilateral: normal - Neck Neck: supple, normal ROM - Respiratory Respiratory effort: normal Respiratory: bilateral: CTA - Breasts Breasts: normal - Cardiovascular Heart rate: 68 Rhythm: regular Heart Sounds: Present: S1 & S2. Absent: gallop, rub Extremities: pulses intact, No edema, normal color, Full ROM - Gastrointestinal General gastrointestinal: Present: soft, non-tender, non-distended, normal bowel sounds - Genitourinary Female genitourinary: normal - Integumentary Integumentary: clear, warm, dry - Musculoskeletal Musculoskeletal: 1, strength equal bilaterally - Neurologic Neurologic: moves all extremities - Psychiatric Psychiatric: memory intact, appropriate mood/affect, intact judgment & insight - Labs CBC & Chem 7: 09/07/18 16:56 09/07/18 16:56 Labs: Abnormal lab results 09/09/18 09/10/18 Range/Units 22:28 11:28 POC Glucose 110 H 107 H (70-105)
--- NOTE | 2018-09-11 01:02 | Progress Note ---
Assessment and Plan Fall Schizophrenia Hypertension Ventricular pause on telemetry 09/09 no further episodes normal TSH Echocardiogram documents a well preserved left ventricular systolic function, ejection fraction 55-60%. Negative bubble study. Patient denies chest pain or shortness of breath Tele reviewed - 1 episode of 3.9 sec ventricular pause over 24 hours ago. Underlying rhythm is sinus with normal QRS duration. No further ventricular pauses Continue to monitor on tele for duration of hospital stay Avoid AV katheryn or sinus node blocking agents Keep K>4 and Mg>2 Outpatient event monitor is warranted after discharge Subjective Date of service: 09/11/18 Principal diagnosis: AMS Interval history: No acute events. Resting comfortably. No chest pain or SOB. Telemetry shows sinus rhythm without further ventricular pauses. Objective Vital Signs Temp Pulse Pulse Pulse Pulse Resp BP 09/10/18 20:01 99.3 F 91 H 22 146/71 09/10/18 16:34 98.4 F 93 H 20 139/66 09/10/18 11:22 98.2 F 20 118/56 09/10/18 10:00 82 86 86 86 19 09/10/18 07:43 98.0 F 79 20 126/61 09/10/18 04:00 98.3 F 86 14 114/61 Pulse Ox 09/10/18 20:01 98 09/10/18 16:34 95 09/10/18 11:22 09/10/18 10:00 99 09/10/18 07:43 95 09/10/18 04:00 95 - Physical Examination HEENT: Positive: PERRL Neck: Positive: trachea midline Extremities: Absent: edema
[2018-09-11] MEDS: RisperDAL PO SCH ×3 (09:45→23:15)
[2018-09-11] MEDS: ASPIRIN PO SCH (09:45)
[2018-09-11] MEDS: KLOR-CON 8 PO SCH (10:36)
[2018-09-11] MEDS: TRICOR PO SCH (10:36)
--- NOTE | 2018-09-11 16:37 | Progress Note ---
Assessment and Plan Assessment and Plan Assessment and plan: Patient is a 68 woman from [facility] with a history of HTN, DM type 2 and Schizophrenia who presented to [facility] ED with AMS, admitted to rule out CVA. * 2D ECHO Conclusions: Global left ventricular wall motion and contractility are within normal limits, estimated EF 55-60%, abnormal left ventricular diastolic filling is observed consistent with impaired relaxation, no atrial septal defected is demonstrated by agitated saline contrast -AMS Improved -Schizophrenia/Psychosis-Stable,Patient from [place] =Maybe transferred back to -no CVA, negative mri, mra for acute stroke -DM type 2: ada, ssi -Hypertension: low salt diet and antihypertensives. Medically cleared for discharge Discharge to [place] Subjective Date of service: 09/11/18 Principal diagnosis: AMS Interval history: Patient alert and oriented Eating ICE cream Objective - Constitutional Vitals: Vital Signs - 12hr 09/11/18 09/11/18 09/11/18 07:24 10:00 13:43 Temperature 97.9 F 98.2 F Pulse Rate 92 H 86 Pulse Rate [ 92 H Apical] Respiratory 18 20 18 Rate Blood Pressure 129/72 128/67 O2 Sat by Pulse 97 97 94 Oximetry General appearance: Present: no acute distress, well-nourished - EENT Eyes: PERRL, EOM intact ENT: hearing intact, clear oral mucosa Ears: bilateral: normal - Neck Neck: supple, normal ROM - Respiratory Respiratory effort: normal Respiratory: bilateral: CTA - Breasts Breasts: normal - Cardiovascular Heart rate: 68 Rhythm: regular Heart Sounds: Present: S1 & S2. Absent: gallop, rub Extremities: pulses intact, No edema, normal color, Full ROM - Gastrointestinal General gastrointestinal: Present: soft, non-tender, non-distended, normal bowel sounds - Genitourinary Female genitourinary: normal - Integumentary Integumentary: clear, warm, dry - Musculoskeletal Musculoskeletal: 1, strength equal bilaterally - Neurologic Neurologic: moves all extremities - Psychiatric Psychiatric: memory intact, appropriate mood/affect, intact judgment & insight - Labs CBC & Chem 7: 09/07/18 16:56 09/07/18 16:56 Labs: Abnormal lab results 09/10/18 09/11/18 Range/Units 16:45 00:57 POC Glucose 125 H 140 H (70-105)
--- NOTE | 2018-09-11 21:58 | Progress Note ---
Subjective - Reason for Consult Consult date: 09/11/18 Reason for consult: follow up - Chief Complaint Chief complaint: "Hello" 68-year-old female that presents to the emergency department from [place] via EMS with complaint of a unwitnessed fall. The malay speaking family member interpreted interview. Today the patient is calm during the assessment. She continues to be preoccupied. She reports hearing voices day and night. She is not sleeping well at night. She denies any side effects of her medications. Mental Status Exam - Vital signs Last Vital Signs Temp 98.0 F 09/11/18 19:49 Pulse 84 09/11/18 20:37 Resp 16 09/11/18 19:49 BP 139/70 09/11/18 19:49 Pulse Ox 95 09/11/18 19:49 Assessment and Plan MSE: Appearance: calm Behavior: regular eye contact Speech: regular rate ; malay speaking Mood: preoccupied, guarded Affect flat Thought Process: circumstantial Thought Content: denies SI/HI, She reports hearing voices which occur day and night Motor Activity: sitting up in the bed Cognition: A/O x3 Insight: poor Judgment: variable Assessment and Plan Impression: Unspecified Psychosis. Today the patient is calm during the assessment. The patient is experiencing perceptual disturbances. DDx: Schizophrenia Recommendation/Plan: Continue 1013 and home medications Klonopin 0.5 mg PO daily for anxiety, Klonopin 1 mg PO HH for anxiety, and risperdal dosing moved to hs, 2mg hs. She requires inpatient psychiatric treatment for further med management. [facility] does not have clozaril (her home meds). Any available meds will not address her symptoms like clozaril. Diso: The patient will be referred to inpatient psy services. Staffed with Dr. Flowers
--- NOTE | 2018-09-11 22:16 | Progress Note ---
Assessment and Plan Fall Schizophrenia Hypertension Ventricular pause on telemetry 09/09 no further episodes normal TSH Echocardiogram documents a well preserved left ventricular systolic function, ejection fraction 55-60%. Negative bubble study. Patient denies chest pain or shortness of breath Tele reviewed - 1 episode of 3.9 sec ventricular pause over 24 hours ago. Underlying rhythm is sinus with normal QRS duration. No further ventricular pauses Continue to monitor on tele for duration of hospital stay Avoid AV katheryn or sinus node blocking agents Keep K>4 and Mg>2 Outpatient event monitor is warranted after discharge No further cardiac recommendations at this time. Patient has not had any further pauses. Plan to follow up outpatient. thank you for the consult. Please re- consult as needed. Subjective Date of service: 09/12/18 Principal diagnosis: AMS Interval history: No acute events. Resting comfortably. No chest pain or SOB. Telemetry shows sinus rhythm without further ventricular pauses. Objective Vital Signs Temp Pulse Pulse Resp BP Pulse Ox 09/11/18 20:37 84 09/11/18 19:49 98.0 F 84 16 139/70 95 09/11/18 13:43 98.2 F 86 18 128/67 94 09/11/18 10:00 92 H 20 97 09/11/18 07:24 97.9 F 92 H 18 129/72 97 09/11/18 03:51 98.6 F 82 20 130/69 97 - Physical Examination HEENT: Positive: PERRL Neck: Positive: trachea midline Extremities: Absent: edema
[2018-09-12] MEDS: TRICOR PO SCH (09:54)
[2018-09-12] MEDS: ASPIRIN PO SCH (09:54)
[2018-09-12] MEDS: KLOR-CON 8 PO SCH (09:55)
--- NOTE | 2018-09-12 09:56 | Discharge Summary ---
Providers - Providers Date of Admission: 09/07/18 19:54 Date of discharge: 09/12/18 Attending physician: ROSE MARIE MARTINEZ 09/07/18 19:54 Occupational Therapy Evaluate and Treat [CONS] Routine Comment: Reason For Exam: Neuro deficits Physical Therapy Evaluation and Treat [CONS] Routine Comment: Reason For Exam: Neuro deficits 09/07/18 19:55 Speech Therapy Evaluation and Treat [CONS] Routine Reason For Exam: swallow eval 09/07/18 20:10 Consult to Physician [CONS] Routine Comment: Consulting Provider: JYOTI RAHMAN Physician Instructions: Reason For Exam: cva 09/08/18 08:00 Consult to Mental Health [CONS] Routine Reason For Exam: schizophrenia Place consult to:: the medical center Notified:: Stephanie FELICIANO Phone number called:: Ext. [phone] Was contact made?: Yes If yes, spoke with:: [facility] health Time called:: 08:04 09/09/18 17:46 Consult to Physician [CONS] Routine Comment: Consulting Provider: DEVIN CORONADO Physician Instructions: Reason For Exam: 3.9 sec pause 09/11/18 16:36 Consult to Case Management [CONS] Routine Services Needed at Discharge: Home Health Services Other Comment:: Transfer to [place] Primary care physician: FELICITY RIOS Hospitalization Condition: Fair Hospital course: Patient is a 68 woman from [facility] with a history of HTN, DM type 2 and Schizophrenia who presented to [facility] ED with AMS, admitted to rule out CVA. * 2D ECHO Conclusions: Global left ventricular wall motion and contractility are within normal limits, estimated EF 55-60%, abnormal left ventricular diastolic filling is observed consistent with impaired relaxation, no atrial septal defected is demonstrated by agitated saline contrast -AMS Improved -Schizophrenia/Psychosis-Stable,Patient from [place] =Maybe transferred back to -no CVA, negative mri, mra for acute stroke -DM type 2: ada, ssi -Hypertension: low salt diet and antihypertensives. Medically cleared for discharge Discharge to [place] Ventricular pause on telemetry 09/09 no further episodes normal TSH Echocardiogram documents a well preserved left ventricular systolic function, ejection fraction 55-60%. Negative bubble study. Patient denies chest pain or shortness of breath Tele reviewed - 1 episode of 3.9 sec ventricular pause over 72 hours ago. Underlying rhythm is sinus with normal QRS duration. No further ventricular pauses Continue to monitor on tele for duration of hospital stay Avoid AV katheryn or sinus node blocking agents Keep K>4 and Mg>2 Outpatient event monitor is warranted after discharge FROM PSYCH FACILITY. Patient has not had any further pauses. Plan to follow up outpatient WITH CARDIOLOGY. Discharge to [place] Disposition: DC/TX-70 ANOTHER TYPE HLTHCARE Core Measure Documentation - Palliative Care Palliative Care/ Comfort Measures: Not Applicable - Core Measures Any of the following diagnoses?: none Exam - Constitutional Vitals: Temp Pulse Resp BP Pulse Ox 98.7 F 83 20 130/65 96 09/12/18 07:57 09/12/18 07:57 09/12/18 07:57 09/12/18 07:57 09/12/18 08:55 General appearance: Present: no acute distress, well-nourished - EENT Eyes: Present: PERRL ENT: hearing intact, clear oral mucosa - Neck Neck: Present: supple, normal ROM - Respiratory Respiratory effort: normal Respiratory: bilateral: CTA - Cardiovascular Heart rate: 78 Rhythm: regular Heart Sounds: Present: S1 & S2. Absent: rub, click - Extremities Extremities: no ischemia, pulses intact, pulses symmetrical, No edema Peripheral Pulses: within normal limits - Abdominal General gastrointestinal: Present: soft, non-tender, non-distended, normal bowel sounds Female genitourinary: Present: normal - Integumentary Integumentary: Present: clear, warm, dry - Musculoskeletal Musculoskeletal: gait normal, strength equal bilaterally - Psychiatric Psychiatric: appropriate mood/affect, intact judgment & insight - Neurologic Neurologic: CNII-XII intact, moves all extremities - Allied Health Allied health notes reviewed: nursing, case management Plan Activity: no restrictions Diet: low cholesterol, low salt Follow up with: FELICITY RIOS MD [Primary Care Provider] - 3-5 Days DEVIN CORONADO MD [Staff Physician] - 7 Days
[2018-09-12] MEDS: RisperDAL PO SCH (21:42)
[2018-09-13] MEDS: KLOR-CON 8 PO SCH (09:42)
[2018-09-13] MEDS: ASPIRIN PO SCH (09:42)
[2018-09-13] MEDS: TRICOR PO SCH (09:42)
[2018-09-13] MEDS ORDERED: HYDROCHLOROTHIAZIDE PO SCH (13:45)
[2018-09-13] MEDS ORDERED: VALSARTAN PO SCH (13:45)
--- NOTE | 2018-09-13 14:01 | Discharge Summary ---
Providers - Providers Date of Admission: 09/07/18 19:54 Date of discharge: 09/13/18 Attending physician: KRISHNA MEDEROS 09/07/18 19:54 Occupational Therapy Evaluate and Treat [CONS] Routine Comment: Reason For Exam: Neuro deficits Physical Therapy Evaluation and Treat [CONS] Routine Comment: Reason For Exam: Neuro deficits 09/07/18 19:55 Speech Therapy Evaluation and Treat [CONS] Routine Reason For Exam: swallow eval 09/07/18 20:10 Consult to Physician [CONS] Routine Comment: Consulting Provider: JYOTI RAHMAN Physician Instructions: Reason For Exam: cva 09/08/18 08:00 Consult to Mental Health [CONS] Routine Reason For Exam: schizophrenia Place consult to:: amelieeugenio Notified:: Stephanie FELICIANO Phone number called:: Ext. [phone] Was contact made?: Yes If yes, spoke with:: [facility] Time called:: 08:04 09/09/18 17:46 Consult to Physician [CONS] Routine Comment: Consulting Provider: DEVIN CORONADO Physician Instructions: Reason For Exam: 3.9 sec pause 09/11/18 16:36 Consult to Case Management [CONS] Routine Services Needed at Discharge: Home Health Services Other Comment:: Transfer to [place] Primary care physician: FELICITY RIOS Hospitalization Reason for admission: Metabolic encephalopathy Condition: Fair Pertinent studies: MRI, CT head Procedures: none Hospital course: Patient is a 68 woman from [facility] with a history of HTN, DM type 2 and Schizophrenia who presented to [facility] ED with AMS, admitted to rule out CVA. MRI wasnegative for acute stroke * 2D ECHO Conclusions: Global left ventricular wall motion and contractility are within normal limits, estimated EF 55-60%, abnormal left ventricular diastolic filling is observed consistent with impaired relaxation, no atrial septal defected is demonstrated by agitated saline contrast -AMS Improved -Schizophrenia/Psychosis-Stable,Patient from [place] =Maybe transferred back to -no CVA, negative mri, mra for acute stroke -DM type 2: ada, ssi -Hypertension: low salt diet and antihypertensives. Medically cleared for discharge Discharge to [place] Disposition: DC/TX-65 PSY HOSP/PSY UNIT Time spent for discharge: 35 min Core Measure Documentation - Palliative Care Palliative Care/ Comfort Measures: Not Applicable - Core Measures Any of the following diagnoses?: none, history only Exam - Constitutional Vitals: Temp Pulse Resp BP Pulse Ox 98.8 F 73 18 138/64 95 09/13/18 07:53 09/13/18 07:53 09/13/18 07:53 09/13/18 07:53 09/13/18 08:45 General appearance: Present: no acute distress, well-nourished - EENT Eyes: Present: PERRL ENT: hearing intact, clear oral mucosa - Neck Neck: Present: supple, normal ROM - Respiratory Respiratory effort: normal Respiratory: bilateral: CTA - Cardiovascular Heart Sounds: Present: S1 & S2. Absent: rub, click - Extremities Extremities: pulses symmetrical, No edema Peripheral Pulses: within normal limits - Abdominal General gastrointestinal: Present: soft, non-tender, non-distended, normal bowel sounds Female genitourinary: Present: normal - Integumentary Integumentary: Present: clear, warm, dry - Musculoskeletal Musculoskeletal: gait normal, strength equal bilaterally - Psychiatric Psychiatric: appropriate mood/affect, intact judgment & insight - Neurologic Neurologic: CNII-XII intact, moves all extremities Plan Activity: fall precautions Weight Bearing Status: Non-Weight Bearing Follow up with: DEVIN CORONADO MD [Staff Physician] - 7 Days FELICITY RIOS MD [Primary Care Provider] - 3-5 Days
[2018-09-13] MEDS: RisperDAL PO SCH (22:38)
[2018-09-14] MEDS: KLOR-CON 8 PO SCH (09:48)
[2018-09-14] MEDS: TRICOR PO SCH (09:48)
[2018-09-14] MEDS: ASPIRIN PO SCH (09:48)
[2018-09-14] MEDS ORDERED: BABY ASPIRIN PO SCH (10:00)
[2018-09-14] MEDS ORDERED: NON-FORMULARY (Aspirin Baby Chew Tab 81 MG) PO SCH (10:00)
[2018-09-14 15:08] VITALS: BP 130/55
--- NOTE | 2018-09-14 15:48 | Progress Note ---
Assessment and Plan Assessment and plan: Patient is a 68 woman from [facility] with a history of HTN, DM type 2 and Schizophrenia who presented to [facility] ED with AMS, admitted to rule out CVA. * 2D ECHO Conclusions: Global left ventricular wall motion and contractility are within normal limits, estimated EF 55-60%, abnormal left ventricular diastolic filling is observed consistent with impaired relaxation, no atrial septal defected is demonstrated by agitated saline contrast -AMS Improved -Schizophrenia/Psychosis-Stable,Patient from [place] =Maybe transferred back to -no CVA, negative mri, mra for acute stroke -DM type 2: ada, ssi -Hypertension: low salt diet and antihypertensives. Hypokalemia-fup K level CAROL- vasomotor nephropathy, was dehydrated and now improved, fup Cr level Medically cleared for discharge, to [facility] when bed is available Discharge to [place] Hospitalist Physical - Constitutional Vitals: Temp Pulse Resp BP Pulse Ox 98.0 F 54 L 20 130/55 96 09/14/18 13:09 09/14/18 13:09 09/14/18 13:09 09/14/18 13:09 09/14/18 13:09 General appearance: Present: no acute distress, well-nourished Results - Labs CBC & Chem 7: 09/07/18 16:56 09/07/18 16:56 Labs: Laboratory Last Values WBC 5.7 K/mm3 (4.5-11.0) 09/07/18 16:56 RBC 3.63 M/mm3 (3.65-5.03) L 09/07/18 16:56 Hgb 10.7 gm/dl (10.1-14.3) 09/07/18 16:56 Hct 31.9 % (30.3-42.9) 09/07/18 16:56 MCV 88 fl (79-97) 09/07/18 16:56 MCH 30 pg (28-32) 09/07/18 16:56 MCHC 34 % (30-34) 09/07/18 16:56 RDW 14.2 % (13.2-15.2) 09/07/18 16:56 Plt Count 225 K/mm3 (140-440) 09/07/18 16:56 Lymph % (Auto) 27.5 % (13.4-35.0) 09/07/18 16:56 [place] % (Auto) 9.0 % (0.0-7.3) H 09/07/18 16:56 Eos % (Auto) 1.0 % (0.0-4.3) 09/07/18 16:56 Baso % (Auto) 0.5 % (0.0-1.8) 09/07/18 16:56 Lymph # 1.6 K/mm3 (1.2-5.4) 09/07/18 16:56 [place] # 0.5 K/mm3 (0.0-0.8) 09/07/18 16:56 Eos # 0.1 K/mm3 (0.0-0.4) 09/07/18 16:56 Baso # 0.0 K/mm3 (0.0-0.1) 09/07/18 16:56 Seg Neutrophils % 62.0 % (40.0-70.0) 09/07/18 16:56 Seg Neutrophils # 3.6 K/mm3 (1.8-7.7) 09/07/18 16:56 Sodium 140 mmol/L (137-145) 09/07/18 16:56 Potassium 3.3 mmol/L (3.6-5.0) L 09/07/18 16:56 Chloride 102.1 mmol/L (98-107) 09/07/18 16:56 Carbon Dioxide 21 mmol/L (22-30) L 09/07/18 16:56 Anion Gap 20 mmol/L 09/07/18 16:56 BUN 40 mg/dL (7-17) H 09/07/18 16:56 Creatinine 2.1 mg/dL (0.7-1.2) H 09/07/18 16:56 Estimated GFR 28 ml/min 09/07/18 16:56 BUN/Creatinine Ratio 19 % 09/07/18 16:56 Glucose 119 mg/dL (65-100) H 09/07/18 16:56 POC Glucose 140 (70-105) H 09/11/18 00:57 Calcium 9.0 mg/dL (8.4-10.2) 09/07/18 16:56 Troponin T < 0.010 ng/mL (0.00-0.029) 09/07/18 16:56 Triglycerides 139 mg/dL (2-149) 09/08/18 05:25 Cholesterol 110 mg/dL (50-199) 09/08/18 05:25 LDL Cholesterol Direct 54 mg/dL (50-130) 09/08/18 05:25 HDL Cholesterol 47 mg/dL (40-59) 09/08/18 05:25 Cholesterol/HDL Ratio 2.34 % 09/08/18 05:25 Vitamin B12 349.2 pg/mL (211-911) 09/08/18 19:37 TSH 2.260 mlU/mL (0.270-4.200) 09/07/18 16:56 Nutrition/Malnutrition Assess - Dietary Evaluation Nutrition/Malnutrition Findings: Nutrition Notes Start: 09/14/18 09:55 Freq: Status: Active Protocol: Document 09/14/18 09:55 YANCY (Rec: 09/14/18 09:57 YANCY [id number]) Nutrition Notes Need for Assessment generated from: LOS Initial or Follow up Brief Note Current Diet Cardiac Height 5 ft 7 in Weight 70.3 kg [place] Body Weight (kg) 61.36 BMI 24.3 Weight Status Appropriate Subjective/Other Information Pt screened for LOS. She has consumed 75% of meals since admission. Percent of energy/protein needs met: 97% energy 89% pro Burn Absent Trauma Absent Is patient on ventilator? No Is Patient Ambulatory and/or Out of Bed Yes REE-([place]-[facility]. or-ambulatory/OOB) [ 1632.319 [id number]] [facility] Additional Notes Pro needs 1-1.2g/k-84g/ day Fluid needs 1ml/kcal Nutrition Intervention Revisit per MD consult or patient Sign Off request:
[2018-09-14 21:53] LABS: Basophils % (Auto) 0.5 % (0.0-1.8); Eosinophils # (Auto) 0.1 K/mm3 (0.0-0.4); Eosinophils % (Auto) 1.2 % (0.0-4.3); Hematocrit 30.7 % (30.3-42.9); Hemoglobin 10.3 gm/dl (10.1-14.3); Lymphocytes # (Auto) 1.7 K/mm3 (1.2-5.4); Lymphocytes % (Auto) 20.2 % (13.4-35.0); Mean Corpuscular HGB Conc 34 % (30-34); Mean Corpuscular Volume 88 fl (79-97); Monocytes # (Auto) 0.6 K/mm3 (0.0-0.8); Platelet Count 213 K/mm3 (140-440); Red Blood Count 3.48 M/mm3 (3.65-5.03); Red Cell Distribution Width 14.4 % (13.2-15.2)
[2018-09-14 22:05] LABS: BUN/Creatinine Ratio 18; Blood Urea Nitrogen 18 mg/dL (7-17); Calcium 9.2 mg/dL (8.4-10.2); Hemolysis Index 16
--- NOTE | 2018-09-15 10:25 | Discharge Summary ---
Providers - Providers Date of Admission: 09/07/18 19:54 Attending physician: JUAN ADAME MD 09/07/18 19:54 Occupational Therapy Evaluate and Treat [CONS] Routine Comment: Reason For Exam: Neuro deficits Physical Therapy Evaluation and Treat [CONS] Routine Comment: Reason For Exam: Neuro deficits 09/07/18 19:55 Speech Therapy Evaluation and Treat [CONS] Routine Reason For Exam: swallow eval 09/07/18 20:10 Consult to Physician [CONS] Routine Comment: Consulting Provider: JYOTI RAHMAN Physician Instructions: Reason For Exam: cva 09/08/18 08:00 Consult to Mental Health [CONS] Routine Reason For Exam: schizophrenia Place consult to:: psy Notified:: Stephanie FELICIANO Phone number called:: Ext. [phone] Was contact made?: Yes If yes, spoke with:: [facility] Time called:: 08:04 09/09/18 17:46 Consult to Physician [CONS] Routine Comment: Consulting Provider: DEVIN CORONADO Physician Instructions: Reason For Exam: 3.9 sec pause 09/11/18 16:36 Consult to Case Management [CONS] Routine Services Needed at Discharge: Home Health Services Other Comment:: Transfer to [place] Primary care physician: FELICITY RIOS Hospitalization Condition: Fair Hospital course: 70-year-old woman who was brought from [place] psychiatric facility, history of hypertension and diabetes and schizophrenia. She presented with altered mental status. She went on to have MRI which was negative for stroke. She also had an echocardiogram that did not show any acute findings. She was medically optimized for transfer back to psychiatric inpatient unit. After which she was transferred Diagnoses Acute metabolic encephalopathy Psychosis Type 2 diabetes Hypertension Disposition: DC/TX-65 PSY HOSP/PSY UNIT Time spent for discharge: 35 minutes Core Measure Documentation - Palliative Care Palliative Care/ Comfort Measures: Not Applicable - Core Measures Any of the following diagnoses?: none Exam - Constitutional Vitals: Temp Pulse Resp BP Pulse Ox 98.0 F 54 L 20 130/55 96 09/14/18 13:09 09/14/18 13:09 09/14/18 13:09 09/14/18 13:09 09/14/18 13:09 General appearance: Present: no acute distress, well-nourished - EENT Eyes: Present: PERRL ENT: hearing intact, clear oral mucosa - Neck Neck: Present: supple, normal ROM - Respiratory Respiratory effort: normal Respiratory: bilateral: CTA - Cardiovascular Heart Sounds: Present: S1 & S2. Absent: rub, click - Extremities Extremities: pulses symmetrical, No edema Peripheral Pulses: within normal limits - Abdominal General gastrointestinal: Present: soft, non-tender, non-distended, normal bowel sounds Female genitourinary: Present: normal - Integumentary Integumentary: Present: clear, warm, dry - Musculoskeletal Musculoskeletal: gait normal, strength equal bilaterally - Psychiatric Psychiatric: no appropriate mood/affect, no intact judgment & insight - Neurologic Neurologic: CNII-XII intact, moves all extremities Plan Follow up with: DEVIN CORONADO MD [Staff Physician] - 7 Days FELICITY RIOS MD [Primary Care Provider] - 3-5 Days
== END 2018-09-14 17:16 | DRG 70 ==
LOC: ED 15:57 → 4A 19:54 → 2B-ACE 09-10 19:15
PROVIDERS: ADMIT Internal Medicine; ATTEND Internal Medicine
DX: G93.40 Encephalopathy, unspecified (principal); N17.0 Acute kidney failure with tubular necrosis; F20.1 Disorganized schizophrenia; W18.30XA Fall on same level, unspecified, initial encounter; E86.0 Dehydration; I10 Essential (primary) hypertension; E11.9 Type 2 diabetes mellitus without complications; Z79.82 Long term (current) use of aspirin; Z79.899 Other long term (current) drug therapy; Y93.89 Activity, other specified; Y92.098 Other place in other non-institutional residence as the place of occurrence of the external cause; Y99.8 Other external cause status; Z79.84 Long term (current) use of oral hypoglycemic drugs
CPT/HCPCS: 36415; 70450; 70544; 70551; 72125; 80048; 80061; 82607; 82962; 84443; 84484; 85025; 93005; 93010; 93306; 93880; G0378; A9270-GY; J2405; J7030

== ENCOUNTER 2018-09-14 15:55 | Inpatient (IN) | payer MEDICARE ==
[2018-09-14] MEDS ORDERED: TYLENOL PO PRN (19:57)
[2018-09-14] MEDS ORDERED: DULCOLAX PO PRN (19:58)
[2018-09-14] MEDS ORDERED: MILK OF MAGNESIA PO PRN (19:59)
[2018-09-14] MEDS: RisperDAL PO SCH (21:54)
[2018-09-15] MEDS: ECOTRIN PO SCH (09:19)
[2018-09-15] MEDS: KLOR-CON 8 PO SCH (09:19)
[2018-09-15] MEDS: TRICOR PO SCH (09:19)
--- NOTE | 2018-09-15 10:26 | History and Physical Report ---
History of Present Illness Date of admission: 09/14/18 17:35 Chief complaint: medical management of htn, Dm History of present illness: medicine called for management of htn, dm She is admitted on Geripsych unit for management of uncontrolled Schizophrenia denies CP, COKER, cough or sob, she feels well Past History Past Medical History: diabetes, hypertension, other (Schizophrenia) Past Surgical History: No surgical history, Other (Unable to obtain) Social history: Family history: no significant family history (unable to obtain) Medications and Allergies Allergies Allergy/AdvReac Type Severity Reaction Status Date / Time No Known Allergies Allergy Verified 09/17/15 10:37 Home Medications Medication Instructions Recorded Confirmed Last Taken Type Valsartan/Hydrochlorothiazide 160 mg PO DAILY 09/17/15 09/15/18 3 Days Ago History ~09/05/18 Aspirin [Aspirin TAB] 325 mg PO QDAY tablet 09/12/18 09/15/18 Unknown Rx AtorvaSTATin [Lipitor] 40 mg PO QHS tablet 09/12/18 09/15/18 Unknown Rx Fenofibrate [Tricor] 48 mg PO DAILY tablet 09/12/18 09/15/18 Unknown Rx Potassium Chloride [Klor-Con 8] 8 meq PO QDAY tablet 09/12/18 09/15/18 Unknown Rx Docusate Sodium [Colace CAP] 100 mg PO DAILY PRN #30 capsule 09/21/18 Unknown Rx clonazePAM [KlonoPIN] 0.5 mg PO BID #60 tablet 09/21/18 Unknown Rx risperiDONE [RisperDAL] 2 mg PO HS #60 tablet 09/21/18 Unknown Rx Active Meds: Active Medications Acetaminophen (Tylenol) 650 mg PO Q4H PRN PRN Reason: Pain, Mild (1-3) Aspirin (Ecotrin) 325 mg PO QDAY [facility] Last Admin: 09/15/18 09:19 Dose: 325 mg Documented by: Atorvastatin Calcium (Lipitor) 40 mg PO QHS [facility] Last Admin: 09/14/18 21:57 Dose: 40 mg Documented by: Bisacodyl (Dulcolax) 10 mg PO QDAY PRN PRN Reason: Constipation Clonazepam (Klonopin) 0.5 mg PO DAILY [facility] Last Admin: 09/15/18 09:19 Dose: 0.5 mg Documented by: Clonazepam (Klonopin) 1 mg PO QHS [facility] Last Admin: 09/14/18 21:58 Dose: 1 mg Documented by: Fenofibrate (Tricor) 48 mg PO QDAY [facility] Last Admin: 09/15/18 09:19 Dose: 48 mg Documented by: Magnesium Hydroxide (Milk Of Magnesia) 30 ml PO Q4H PRN PRN Reason: Constipation Potassium Chloride (Klor-Con 8) 8 meq PO QDAY [facility] Last Admin: 09/15/18 09:19 Dose: 8 meq Documented by: Risperidone (Risperdal) 2 mg PO QHS [facility] Last Admin: 09/14/18 21:54 Dose: 2 mg Documented by: Review of Systems All systems: negative Constitutional: no anorexia Ears, nose, mouth and throat: no deferred Breasts: no deferred Cardiovascular: no chest pain Respiratory: no cough Gastrointestinal: no abdominal pain Genitourinary Female: no urgency Rectal: no pain Musculoskeletal: no neck stiffness Integumentary: no deferred Neurological: no head injury Psychiatric: no anxiety Endocrine: no cold intolerance Hematologic/Lymphatic: no easy bruising Allergic/Immunologic: no urticaria Exam - Constitutional Vitals: Temp Pulse Resp BP Pulse Ox 97.9 F 78 18 139/67 100 09/15/18 08:19 09/15/18 08:19 09/15/18 08:19 09/15/18 08:19 09/15/18 08:19 General appearance: Present: no acute distress, well-nourished - EENT Eyes: Present: PERRL ENT: hearing intact, clear oral mucosa - Neck Neck: Present: supple, normal ROM - Respiratory Respiratory effort: normal Respiratory: bilateral: CTA - Cardiovascular Heart Sounds: Present: S1 & S2. Absent: rub, click - Extremities Extremities: pulses symmetrical, No edema Peripheral Pulses: within normal limits - Abdominal General gastrointestinal: Present: soft, non-tender, non-distended, normal bowel sounds Female genitourinary: Present: normal - Integumentary Integumentary: Present: clear, warm, dry - Musculoskeletal Musculoskeletal: gait normal, strength equal bilaterally - Psychiatric Psychiatric: cooperative - Neurologic Neurologic: CNII-XII intact, moves all extremities Assessment and Plan Assessment and plan: 70-year-old woman admitted to [facility] for mgt of psychosis Diagnoses Shizophrenia Psychosis Type 2 diabetes Hypertension Plan cont meds for htn and dm, as in her dc med rec from yesterday mgt of psychosis per psych
--- NOTE | 2018-09-15 14:32 | History and Physical Report ---
GP History & Physical - History of Present Illness Date of admission: 09/14/18 Date of Examination: 09/15/18 Reason for Admission: Unable to care for self Chief Complaint: Hearing voices, confused History of Present Illness: The patient is a 68yo female with history of Schizophrenia. She was transferred from the medical floor last night as she continues to experience auditory hallucinations and she is unable to care for herself. She was initially to the medical floor on 09/07/18, brought in by EMS, with complaint of an unwitnessed fall. Per medical records, patient has a past psychiatric history of schizophrenia. Patient was admitted to [facility] for psychosis and being noncompliant with medication. Patient reportedly has episodes of being confused and disoriented. Patient seen by me. She is calm, pleasant and cooperative. She complains of distressing auditory hallucinations, denies SI/HI/paranoia. She denies medication side effects. On admission, her psych medications were: Klonopin 0.5 mg po QAM, Klonopin 1mg po qhs, Clozapine 200mg po QHS, Risperdal 1mg po QHS. Current Psychiatric Medications: Klonopin 0.5 mg po QAM, Klonopin 1mg po qhs, Risperdal 2mg po QHS. Past Psychiatric History: Schizophrenia (15 years ago); More than 5 previous inpatient hospitalizations ( [place] and [place]); outpatient psychiatrist Dr. Dalton. Past Medication Trials: Valium. Other medication names are unknown. History Drug/Substance Abuse: Per collateral patient denies. History of Trauma/Abuse: Per collateral patient denies sexual, physical, and mental abuse. Social History: College graduate- [employer]; monthly income- social security/disability; no children; no pending legal issues; . Family History of Psychiatric Illness/ Substance Abuse: Brother- paranoid delusions. Legal Status: Involuntary Patient Problems: Current Active Problems Delirium (Acute) Reaction to Hospitalization: Accepting Substance History - Substance History Drug Use: none Hx Tobacco Use: No Alcohol Use: No Past psychiatric history - Past Medical History Past Medical History: diabetes, hypertension, stroke Past Surgical History: No surgical history Review of Systems ROS unobtainable: due to mental status Results - Results Labs/Vitals: Last Vital Signs Temp 97.9 F 09/15/18 08:19 Pulse 78 09/15/18 08:19 Resp 18 03/13/19 08:19 BP 139/67 09/15/18 08:19 Pulse Ox 100 09/15/18 08:19 Physical Examination - Constitutional Vitals: Vital Signs Temp Pulse Resp BP Pulse Ox 97.9 F 78 18 139/67 100 09/15/18 08:19 09/15/18 08:19 09/15/18 08:19 09/15/18 08:19 09/15/18 08:19 Temperature -Last 24 Hours Temperature 97.9 F General appearance: Present: no acute distress - Respiratory Respiratory effort: normal - Extremities Extremities: no ischemia, normal color Mental Status Exam - Vital signs Last Vital Signs Temp 97.9 F 09/15/18 08:19 Pulse 78 09/15/18 08:19 Resp 18 09/15/18 08:19 BP 139/67 09/15/18 08:19 Pulse Ox 100 09/15/18 08:19 - Exam Orientation: person Affect: flat Mood: congruent with affect Thought Process: Goal Oriented Perceptions: hallucinations Speech: paucity Concentration: focused Motor activity: lethargic Level of consciousness: confused Memory: Recent Impaired Sleep Symptoms: Difficulty Falling Asleep Interaction: apathetic Mini mental status exam(if necessary): 18- Assessment and Plan - Psychiatric problem (1) Schizophrenia Current Visit: No Status: Acute Qualifiers: Schizophrenia type: paranoid schizophrenia Qualified Code(s): F20.0 - Paranoid schizophrenia (2) Delirium Current Visit: Yes Status: Acute (3) CVA (cerebral vascular accident) Current Visit: No Status: Acute Qualifiers: Laterality of affected vessel: unspecified Physician Certification - Certification Statement Physician Certification Statement: This is an acknowledgement statement that LUCERO STERLING is a 68 year old F who requires inpatient psychiatric admission for treatment which could reasonably be expected to improve the patient's condition for Schizophrenia and Delirium due to multiple etiologies (CVA, CAROL, Medications) Estimated period of time patient will need to remain in the hospital: 7 days Plan for post-hospital care: Out-patient treatment PLAN: Patient will be admitted for inpatient psychiatric evaluation, medication adjustment and close monitoring The patient's behavior, mood, sleep and appetite will be closely monitored. Patient will be enrolled in individual and group therapeutic sessions and encouraged to attend. Patient will be provided with a safe and structured environment. Patient's physical health needs will be addressed by the Hospitalist. Social Assessment will be completed and the [employer]ro[employer] Technician will work with patient and family to ensure a suitable and safe disposition Medication adjustment will be made as clinically indicated The patient agreed on the treatment plan, understood the risk, benefit, alternative treatment, potential consequence of no treatment, and gave informed consent.
[2018-09-15] MEDS: RisperDAL PO SCH (21:04)
--- NOTE | 2018-09-16 07:29 | Progress Note ---
Subjective Date of service: 09/16/18 Principal diagnosis: Schizophrenia Subjective Comment: Patient continues to experience distressing auditory hallucinations. She denies suicidal or homicidal thoughts. No delusional statements. She is withdrawn and isolative. Appetite is decreased. She sleeps well at night. No behavioral problems. She is cooperative with cares and compliant with medications. No reported or observed medication side effects. Plan: Will continue current medications. Encourage patient to participate in therapeutic activities Monitor patient closely. Objective - Criteria for Continued Treatment Criteria for Continued Treatment: Improving Level of Functioning, Reducing Isolative Behaviors, Understanding Diagnosis and need for Medication, Improving Treatment / Medication Compliance, Stablizing Level of Functioning, Improving Emotional/Socia - Mental Status Mental Status: Oriented x 3 - Objective Observation Participation Level: Minimal Assessment and Plan - Patient Problems (1) Schizophrenia Current Visit: No Status: Acute Qualifiers: Schizophrenia type: paranoid schizophrenia Qualified Code(s): F20.0 - Paranoid schizophrenia (2) Delirium Current Visit: Yes Status: Acute (3) CVA (cerebral vascular accident) Current Visit: No Status: Acute Qualifiers: Laterality of affected vessel: unspecified
[2018-09-16] MEDS: KLOR-CON 8 PO SCH (10:27)
[2018-09-16] MEDS: TRICOR PO SCH (10:27)
[2018-09-16] MEDS: ECOTRIN PO SCH (10:27)
[2018-09-16] MEDS: RisperDAL PO SCH (22:06)
[2018-09-17] MEDS: TRICOR PO SCH (09:16)
[2018-09-17] MEDS: KLOR-CON 8 PO SCH (09:16)
[2018-09-17] MEDS: ECOTRIN PO SCH (09:16)
--- NOTE | 2018-09-17 12:20 | Progress Note ---
Subjective Date of service: 09/17/18 Principal diagnosis: Schizophrenia Subjective Comment: Patient denies auditory hallucinations. She is more interactive today. She denies suicidal or homicidal thoughts. No delusional statements. Appetite is decreased but may be related to her dietary preferences. She sleeps well at night. No behavioral problems. She is cooperative with cares and compliant with medications. No reported or observed medication side effects. Plan: Will continue current medications. Encourage patient to participate in therapeutic activities Monitor patient closely over the weekend Will consider discharge on Thursday if she continues to improve. Objective - Criteria for Continued Treatment Criteria for Continued Treatment: Improving Level of Functioning - Mental Status Mental Status: Oriented x 3 - Objective Observation Participation Level: Moderate Assessment and Plan - Patient Problems (1) Schizophrenia Current Visit: No Status: Acute Qualifiers: Schizophrenia type: paranoid schizophrenia Qualified Code(s): F20.0 - Paranoid schizophrenia (2) Delirium Current Visit: Yes Status: Acute (3) CVA (cerebral vascular accident) Current Visit: No Status: Acute Qualifiers: Laterality of affected vessel: unspecified
[2018-09-17] MEDS: RisperDAL PO SCH (21:59)
[2018-09-18] MEDS: KLOR-CON 8 PO SCH (09:28)
[2018-09-18] MEDS: TRICOR PO SCH (09:28)
[2018-09-18] MEDS: ECOTRIN PO SCH (09:28)
--- NOTE | 2018-09-18 11:00 | Progress Note ---
Subjective Date of service: 09/18/18 Principal diagnosis: Schizophrenia Subjective Comment: Patient is in the dayroom with Staff. She is more animated, smiles and more communicative. She auditory hallucinations. She denies suicidal or homicidal thoughts. No delusional statements. She sleeps well at night. No behavioral problems. She is cooperative with cares and compliant with medications. No reported or observed medication side effects. Plan: Will continue current medications. Encourage patient to participate in therapeutic activities Monitor patient closely over the weekend Will consider discharge on Thursday if she continues to improve. Objective - Criteria for Continued Treatment Criteria for Continued Treatment: Improving Level of Functioning, Improving Emotional/Socia - Mental Status Mental Status: Oriented x 3 - Objective Observation Participation Level: Full Assessment and Plan - Patient Problems (1) Schizophrenia Current Visit: No Status: Acute Qualifiers: Schizophrenia type: paranoid schizophrenia Qualified Code(s): F20.0 - Paranoid schizophrenia (2) Delirium Current Visit: Yes Status: Acute (3) CVA (cerebral vascular accident) Current Visit: No Status: Acute Qualifiers: Laterality of affected vessel: unspecified
[2018-09-18] MEDS: RisperDAL PO SCH (21:03)
[2018-09-19] MEDS: KLOR-CON 8 PO SCH (09:52)
[2018-09-19] MEDS: ECOTRIN PO SCH (09:52)
[2018-09-19] MEDS: TRICOR PO SCH (09:52)
--- NOTE | 2018-09-19 10:11 | Progress Note ---
Subjective Date of service: 09/19/18 Principal diagnosis: Schizophrenia Subjective Comment: Patient is in the dayroom with Staff. She has constipation otherwise no concerns per Staff. She auditory hallucinations. She denies suicidal or homicidal thoughts. No delusional statements. She sleeps well at night. No behavioral problems. She is cooperative with cares and compliant with medications. No reported or observed medication side effects. Plan: Will add Colace for constipation Continue therapeutic activities Continue to monitor closely Will consider discharge on Thursday if she continues to improve. Objective - Criteria for Continued Treatment Criteria for Continued Treatment: Improving Level of Functioning, Reducing Isolative Behaviors, Understanding Diagnosis and need for Medication, Improving Treatment / Medication Compliance, Improving Emotional/Socia - Mental Status Mental Status: Oriented x 3 - Objective Observation Participation Level: Moderate Assessment and Plan - Patient Problems (1) Schizophrenia Current Visit: No Status: Acute Qualifiers: Schizophrenia type: paranoid schizophrenia Qualified Code(s): F20.0 - Paranoid schizophrenia (2) Delirium Current Visit: Yes Status: Acute (3) CVA (cerebral vascular accident) Current Visit: No Status: Acute Qualifiers: Laterality of affected vessel: unspecified
[2018-09-19] MEDS: COLACE PO SCH (10:45)
[2018-09-19] MEDS: RisperDAL PO SCH (21:20)
[2018-09-20] MEDS: ECOTRIN PO SCH (09:18)
[2018-09-20] MEDS: TRICOR PO SCH (09:18)
[2018-09-20] MEDS: COLACE PO SCH (09:18)
[2018-09-20] MEDS: KLOR-CON 8 PO SCH (09:18)
--- NOTE | 2018-09-20 11:01 | Progress Note ---
Subjective Date of service: 09/20/18 Principal diagnosis: Schizophrenia Subjective Comment: Patient reports feeling fine this morning. She describes good and stable mood. She endorses hearing voices but indicates that she is not bothered by that experience. She is not able to recall the content of the auditory hallucinations. She denies suicidal or homicidal thoughts. No delusional statements. She sleeps well at night. No behavioral problems. She is cooperative with cares and compliant with medications. No reported or observed medication side effects. Plan: Continue current medications Continue therapeutic activities Continue to monitor closely Will plan to discharge in am tomorrow. Objective - Criteria for Continued Treatment Criteria for Continued Treatment: Improving Level of Functioning - Mental Status Mental Status: Oriented x 3 - Objective Observation Participation Level: Moderate Assessment and Plan - Patient Problems (1) Schizophrenia Current Visit: No Status: Acute Qualifiers: Schizophrenia type: paranoid schizophrenia Qualified Code(s): F20.0 - Paranoid schizophrenia (2) Delirium Current Visit: Yes Status: Acute (3) CVA (cerebral vascular accident) Current Visit: No Status: Acute Qualifiers: Laterality of affected vessel: unspecified
[2018-09-20] MEDS: DIOVAN PO SCH (12:16)
[2018-09-20] MEDS: HCTZ PO SCH (12:19)
[2018-09-20] MEDS: RisperDAL PO SCH (21:03)
[2018-09-21] MEDS: COLACE PO SCH (10:22)
[2018-09-21] MEDS: TRICOR PO SCH (10:22)
[2018-09-21] MEDS: ECOTRIN PO SCH (10:22)
[2018-09-21 10:27] VITALS: BP 108/51
[2018-09-21] MEDS: KLOR-CON 8 PO SCH (10:30)
[2018-09-21] MEDS: HCTZ PO SCH (10:34)
[2018-09-21] MEDS: DIOVAN PO SCH (10:35)
--- NOTE | 2018-09-21 10:38 | Discharge Summary ---
Providers - Providers Date of Admission: 09/14/18 17:35 Date of discharge: 09/21/18 Attending physician: TARIQ FREEMAN MD 09/14/18 16:35 Consult to Physician [CONS] Routine Comment: Consulting Provider: ROSE MARIE MARTINEZ Physician Instructions: Medical Management Reason For Exam: New Admit 09/17/18 09:00 Consult to Dietitian/Nutrition [CONS] Routine Physician Instructions: Reason For Exam: Reason for Consult: Poor oral intake Primary care physician: FELICITY RIOS Hospitalization Reason for admission: Patient was confused, unable to care for self and was hallucinating Condition: Good Hospital course: The patient was provided inpatient psychiatric treatment with safe and supportive environment, individual counseling, psychiatric medication, medication adjustment, adverse effect monitor, medical evaluation, medical treatment, social service assessment, family/social support meeting, placement assessment and psycho-education. The patients mood, anxiety, thoughts, stress management skill, cognition, motivation, understanding of disease, compliance to treatment and appreciation on family/social support are improved and stabilized. At the time of discharge, the patient had no suicidal ideas, no homicidal ideas, no aggressive thoughts, no endangering behavior and no debilitating adverse effects. The patient agreed on the treatment plan, understood the risk, benefit, alternative treatment, potential consequence of no treatment, and gave informed consent. The patient was advised to be compliant with medications, not to use drugs and not to drink alcohol. The patient understands that if suicidal ideas, homicidal ideas, or any endangering thoughts arise, the patient should immediately seek for emergent assistance including but not limited to crisis hot line and emergency room. Follow up with out-patient Psychiatrist and PCP within 14 - 21 days of discharge Disposition: DC-01 TO HOME OR SELFCARE Time spent for discharge: 40 minutes Allergies/Adverse Reactions: Allergies No Known Allergies Allergy (Verified 09/17/15 10:37) Vital Signs: Last Vital Signs Temp 97.5 F L 09/21/18 08:19 Pulse 65 09/21/18 10:35 Resp 18 09/21/18 06:08 BP 108/51 09/21/18 10:35 Pulse Ox 100 09/21/18 08:19 - Discharge Diagnoses (1) Schizophrenia Status: Acute Qualifiers: Schizophrenia type: paranoid schizophrenia Qualified Code(s): F20.0 - Paranoid schizophrenia (2) Delirium Status: Acute (3) CVA (cerebral vascular accident) Status: Acute Qualifiers: Laterality of affected vessel: unspecified Core Measure Documentation - Palliative Care Palliative Care/ Comfort Measures: Not Applicable - Core Measures Any of the following diagnoses?: history only Exam - Constitutional Vitals: Temp Pulse Resp BP Pulse Ox 97.5 F L 65 18 108/51 100 09/21/18 08:19 09/21/18 10:35 09/21/18 06:08 09/21/18 10:35 09/21/18 08:19 General appearance: Present: no acute distress - EENT Eyes: Present: PERRL ENT: hearing intact, clear oral mucosa - Neck Neck: Present: supple, normal ROM - Respiratory Respiratory effort: normal - Extremities Extremities: no ischemia, No edema, normal temperature Plan Activity: advance as tolerated, fall precautions Weight Bearing Status: Weight Bear as Tolerated Diet: regular Follow up with: FELICITY RIOS MD [Primary Care Provider] - 7 Days Prescriptions: Docusate Sodium [Colace CAP] 100 mg PO DAILY PRN #30 capsule PRN Reason: Constipation clonazePAM [KlonoPIN] 0.5 mg PO BID #60 tablet risperiDONE [RisperDAL] 2 mg PO HS #60 tablet
== END 2018-09-21 16:58 | disposition home or self-care (01) | DRG 885 ==
LOC: UNDOADMIN 15:55 → 3A 15:55 → 5A 17:35
PROVIDERS: ADMIT Psychiatry & Neurology Psychiatry; ATTEND Psychiatry & Neurology Psychiatry
DX: F20.0 Paranoid schizophrenia (principal); K59.00 Constipation, unspecified; F20.9 Schizophrenia, unspecified; I10 Essential (primary) hypertension; E11.9 Type 2 diabetes mellitus without complications; Z79.82 Long term (current) use of aspirin; Z79.899 Other long term (current) drug therapy; Z86.73 Personal history of transient ischemic attack (TIA), and cerebral infarction without residual deficits; Z71.89 Other specified counseling
CPT/HCPCS: G0378; A9270-GY

== ENCOUNTER 2018-11-16 08:29 | Outpatient (CLI) | payer MEDICARE ==
[2018-11-21 12:57] LABS: Vitamin D, 25-OH, D2 7 ng/mL
== END 2018-11-16 08:30 | disposition home or self-care (01) ==
LOC: LAB 08:29
PROVIDERS: ATTEND Internal Medicine
DX: E55.9 Vitamin D deficiency, unspecified (principal); E11.9 Type 2 diabetes mellitus without complications; E78.00 Pure hypercholesterolemia, unspecified; I10 Essential (primary) hypertension; K21.9 Gastro-esophageal reflux disease without esophagitis; F03.90 Unspecified dementia, unspecified severity, without behavioral disturbance, psychotic disturbance, mood disturbance, and anxiety; Z86.2 Personal history of diseases of the blood and blood-forming organs and certain disorders involving the immune mechanism
CPT/HCPCS: 36415; 82306; 83036

== ENCOUNTER 2019-06-14 08:58 | Emergency (ER) | payer MEDICARE ==
[2019-06-14 10:39] LABS: Basophils % (Auto) 0.7 % (0.0-1.8); Eosinophils # (Auto) 0.1 K/mm3 (0.0-0.4); Eosinophils % (Auto) 1.2 % (0.0-4.3); Hematocrit 33.2 % (30.3-42.9); Lymphocytes # (Auto) 1.2 K/mm3 (1.2-5.4); Mean Corpuscular HGB Conc 33 % (30-34); Mean Corpuscular Volume 87 fl (79-97); Monocytes # (Auto) 0.4 K/mm3 (0.0-0.8); Monocytes % (Auto) 7.1 % (0.0-7.3); Platelet Count 178 K/mm3 (140-440); Red Blood Count 3.83 M/mm3 (3.65-5.03); Red Cell Distribution Width 14.3 % (13.2-15.2)
[2019-06-14 10:51] LABS: BUN/Creatinine Ratio 16; Blood Urea Nitrogen 11 mg/dL (7-17); Calcium 9.2 mg/dL (8.4-10.2); Hemolysis Index 2
[2019-06-14 11:02] LABS: Free T4 (Free Thyroxine) 1.42 ng/dL (0.76-1.46)
[2019-06-14] MEDS ORDERED: POTASSIUM CHLORIDE ER 20 MEQ TAB PO ONE (11:45)
[2019-06-14 12:27] LABS: Bacteria,Urine 1+ /HPF (Negative); Bilirubin,Urine NEG (Negative); Blood,Urine NEG (Negative); Color,Urine Yellow (Yellow); Mucus,Urine FEW /HPF; Protein,Urine <15 mg/dL mg/dL (Negative)
[2019-06-14 12:39] LABS: Amphetamine Screen,Urine PRESUMPTIVE NEGATIVE; Benzodiazepines Screen,Urine PRESUMPTIVE NEGATIVE; Cannabinoid Screen,Urine PRESUMPTIVE NEGATIVE; Cocaine Screen,Urine PRESUMPTIVE NEGATIVE; Methadone Screen,Urine PRESUMPTIVE NEGATIVE; Opiate Screen,Urine PRESUMPTIVE NEGATIVE
--- NOTE | 2019-06-14 14:45 | Emergency Department Report ---
ED Psych HPI - General Chief Complaint: Weakness Stated Complaint: GENERAL WEAKNESS/OFF MEDS Time Seen by Provider: 06/14/19 09:20 Source: EMS Mode of arrival: Stretcher Limitations: No Limitations - History of Present Illness Initial Comments: 68-year-old female with a past medical history of dementia, diabetes, hypertension and schizophrenia presents to the hospital complaining of dizziness and "side pain" and not taking her pills. Nephchrist the bedside states that EMS was initially called due to complaints of some dizziness and pain to her side. Upon arrival patient denies any pain. After EMS arrival patient is pills were discovered hidden underneath of her alarm clock. Nephew gives the medication to his grandmother daily but now he suspects that she is not swallowing the medication and is instead hiding under her alarm clock after putting it in her mouth. He presents concerned that she is going become acutely psychotic if she does not take her medication and requesting admission to the hospital for stabilization. At this time patient does not have any acute psychosis, agitation, combative behavior and does not express suicidal or homicidal ideation. At this time she is at her baseline mental status. - Related Data Home Medications Medication Instructions Recorded Confirmed Last Taken Valsartan [Diovan] 1 tab PO DAILY 06/14/19 06/14/19 Unknown clonazePAM 0.5 mg PO QHS 06/14/19 06/14/19 Unknown clonazePAM [KlonoPIN] 0.25 mg PO QAM 06/14/19 06/14/19 Unknown risperiDONE [RisperDAL] 3 mg PO QHS 06/14/19 06/14/19 Unknown traZODone [Desyrel] 2 tab PO QHS PRN 06/14/19 06/14/19 Unknown Allergies Allergy/AdvReac Type Severity Reaction Status Date / Time No Known Allergies Allergy Verified 09/17/15 10:37 ED Review of Systems ROS: Stated complaint: GENERAL WEAKNESS/OFF MEDS Other details as noted in HPI Comment: All other systems reviewed and negative ED Past Medical Hx - Past Medical History Previous Medical History?: Yes Hx Hypertension: Yes Hx Diabetes: Yes Hx Renal Disease: No Hx Arthritis: No Hx Seizures: No Hx Psychiatric Treatment: Yes (schizophrenia) Hx Dementia: Yes - Surgical History Hx Cholecystectomy: No Hx Appendectomy: No - Social History Smoking Status: Never Smoker - Medications Home Medications: Home Medications Medication Instructions Recorded Confirmed Last Taken Type Valsartan [Diovan] 1 tab PO DAILY 06/14/19 06/14/19 Unknown History clonazePAM 0.5 mg PO QHS 06/14/19 06/14/19 Unknown History clonazePAM [KlonoPIN] 0.25 mg PO QAM 06/14/19 06/14/19 Unknown History risperiDONE [RisperDAL] 3 mg PO QHS 06/14/19 06/14/19 Unknown History traZODone [Desyrel] 2 tab PO QHS PRN 06/14/19 06/14/19 Unknown History ED Physical Exam - General Limitations: Language Barrier - Other Other exam information: General: No acute distress Head: Atraumatic Eyes: normal appearance ENT: Moist mucous membranes Neck: Normal appearance, no midline tenderness Chest: Clear to auscultation bilaterally CV: Regular rate and rhythm Abdomen: Soft, normal bowel sounds, nontender, nondistended, no rebound or guarding Back: Normal inspection Extremity: Normal inspection infection, full range of motion Neuro: Alert O x 3, no facial asymmetry, speech clear, no gross motor sensory deficit Psych: Appropriate behavior Skin: No rash ED Course Vital Signs 06/14/19 06/14/19 09:06 09:46 Temperature 98.0 F Pulse Rate 50 L Respiratory 13 13 Rate Blood Pressure 159/72 Blood Pressure 159/72 [Left] O2 Sat by Pulse 99 98 Oximetry ED Medical Decision Making - Lab Data Result diagrams: 06/14/19 09:52 06/14/19 09:52 Lab Results 06/14/19 06/14/19 06/14/19 Range/Units 09:51 09:52 09:52 WBC 5.0 (4.5-11.0) K/mm3 RBC 3.83 (3.65-5.03) M/mm3 Hgb 11.0 (10.1-14.3) gm/dl Hct 33.2 (30.3-42.9) % MCV 87 (79-97) fl MCH 29 (28-32) pg MCHC 33 (30-34) % RDW 14.3 (13.2-15.2) % Plt Count 178 (140-440) K/mm3 Lymph % (Auto) 25.0 (13.4-35.0) % [place] % (Auto) 7.1 (0.0-7.3) % Eos % (Auto) 1.2 (0.0-4.3) % Baso % (Auto) 0.7 (0.0-1.8) % Lymph # 1.2 (1.2-5.4) K/mm3 [place] # 0.4 (0.0-0.8) K/mm3 Eos # 0.1 (0.0-0.4) K/mm3 Baso # 0.0 (0.0-0.1) K/mm3 Seg Neutrophils % 66.0 (40.0-70.0) % Seg Neutrophils # 3.3 (1.8-7.7) K/mm3 Sodium 143 (137-145) mmol/L Potassium 3.4 L (3.6-5.0) mmol/L Chloride 106.8 (98-107) mmol/L Carbon Dioxide 20 L (22-30) mmol/L Anion Gap 20 mmol/L BUN 11 (7-17) mg/dL Creatinine 0.7 (0.7-1.2) mg/dL Estimated GFR > 60 ml/min BUN/Creatinine Ratio 16 % Glucose 98 (65-100) mg/dL POC Glucose 96 (70-105) Calcium 9.2 (8.4-10.2) mg/dL Total Creatine Kinase (30-135) units/L Troponin T (0.00-0.029) ng/mL TSH (0.270-4.200) mlU/mL Free T4 (0.76-1.46) ng/dL Urine Color (Yellow) Urine Turbidity (Clear) Urine pH (5.0-7.0) Ur Specific [place] (1.003-1.030) Urine Protein (Negative) mg/dL Urine Glucose (UA) (Negative) mg/dL Urine Ketones (Negative) mg/dL Urine Blood (Negative) Urine Nitrite (Negative) Urine Bilirubin (Negative) Urine Urobilinogen (<2.0) mg/dL Ur Leukocyte Esterase (Negative) Urine WBC (Auto) (0.0-6.0) /HPF Urine RBC (Auto) (0.0-6.0) /HPF U Epithel Cells (Auto) (0-13.0) /HPF Urine Bacteria (Auto) (Negative) /HPF Urine Mucus /HPF Urine Opiates Screen Urine Methadone Screen Ur Barbiturates Screen Ur Phencyclidine Scrn Ur Amphetamines Screen U Benzodiazepines Scrn Urine Cocaine Screen U Marijuana (THC) Screen Drugs of Abuse Note Plasma/Serum Alcohol (0-0.07) % 06/14/19 06/14/19 06/14/19 Range/Units 09:52 09:52 09:52 WBC (4.5-11.0) K/mm3 RBC (3.65-5.03) M/mm3 Hgb (10.1-14.3) gm/dl Hct (30.3-42.9) % MCV (79-97) fl MCH (28-32) pg MCHC (30-34) % RDW (13.2-15.2) % Plt Count (140-440) K/mm3 Lymph % (Auto) (13.4-35.0) % [place] % (Auto) (0.0-7.3) % Eos % (Auto) (0.0-4.3) % Baso % (Auto) (0.0-1.8) % Lymph # (1.2-5.4) K/mm3 [place] # (0.0-0.8) K/mm3 Eos # (0.0-0.4) K/mm3 Baso # (0.0-0.1) K/mm3 Seg Neutrophils % (40.0-70.0) % Seg Neutrophils # (1.8-7.7) K/mm3 Sodium (137-145) mmol/L Potassium (3.6-5.0) mmol/L Chloride (98-107) mmol/L Carbon Dioxide (22-30) mmol/L Anion Gap mmol/L BUN (7-17) mg/dL Creatinine (0.7-1.2) mg/dL Estimated GFR ml/min BUN/Creatinine Ratio % Glucose (65-100) mg/dL POC Glucose (70-105) Calcium (8.4-10.2) mg/dL Total Creatine Kinase 307 H (30-135) units/L Troponin T < 0.010 (0.00-0.029) ng/mL TSH 1.960 (0.270-4.200) mlU/mL Free T4 1.42 (0.76-1.46) ng/dL Urine Color (Yellow) Urine Turbidity (Clear) Urine pH (5.0-7.0) Ur Specific [place] (1.003-1.030) Urine Protein (Negative) mg/dL Urine Glucose (UA) (Negative) mg/dL Urine Ketones (Negative) mg/dL Urine Blood (Negative) Urine Nitrite (Negative) Urine Bilirubin (Negative) Urine Urobilinogen (<2.0) mg/dL Ur Leukocyte Esterase (Negative) Urine WBC (Auto) (0.0-6.0) /HPF Urine RBC (Auto) (0.0-6.0) /HPF U Epithel Cells (Auto) (0-13.0) /HPF Urine Bacteria (Auto) (Negative) /HPF Urine Mucus /HPF Urine Opiates Screen Urine Methadone Screen Ur Barbiturates Screen Ur Phencyclidine Scrn Ur Amphetamines Screen U Benzodiazepines Scrn Urine Cocaine Screen U Marijuana (THC) Screen Drugs of Abuse Note Plasma/Serum Alcohol < 0.01 (0-0.07) % 06/14/19 06/14/19 Range/Units 12:00 12:00 WBC (4.5-11.0) K/mm3 RBC (3.65-5.03) M/mm3 Hgb (10.1-14.3) gm/dl Hct (30.3-42.9) % MCV (79-97) fl MCH (28-32) pg MCHC (30-34) % RDW (13.2-15.2) % Plt Count (140-440) K/mm3 Lymph % (Auto) (13.4-35.0) % [place] % (Auto) (0.0-7.3) % Eos % (Auto) (0.0-4.3) % Baso % (Auto) (0.0-1.8) % Lymph # (1.2-5.4) K/mm3 [place] # (0.0-0.8) K/mm3 Eos # (0.0-0.4) K/mm3 Baso # (0.0-0.1) K/mm3 Seg Neutrophils % (40.0-70.0) % Seg Neutrophils # (1.8-7.7) K/mm3 Sodium (137-145) mmol/L Potassium (3.6-5.0) mmol/L Chloride (98-107) mmol/L Carbon Dioxide (22-30) mmol/L Anion Gap mmol/L BUN (7-17) mg/dL Creatinine (0.7-1.2) mg/dL Estimated GFR ml/min BUN/Creatinine Ratio % Glucose (65-100) mg/dL POC Glucose (70-105) Calcium (8.4-10.2) mg/dL Total Creatine Kinase (30-135) units/L Troponin T (0.00-0.029) ng/mL TSH (0.270-4.200) mlU/mL Free T4 (0.76-1.46) ng/dL Urine Color Yellow (Yellow) Urine Turbidity Clear (Clear) Urine pH 6.0 (5.0-7.0) Ur Specific [place] 1.019 (1.003-1.030) Urine Protein <15 mg/dl (Negative) mg/dL Urine Glucose (UA) Neg (Negative) mg/dL Urine Ketones Neg (Negative) mg/dL Urine Blood Neg (Negative) Urine Nitrite Neg (Negative) Urine Bilirubin Neg (Negative) Urine Urobilinogen 4.0 (<2.0) mg/dL Ur Leukocyte Esterase Neg (Negative) Urine WBC (Auto) 1.0 (0.0-6.0) /HPF Urine RBC (Auto) 2.0 (0.0-6.0) /HPF U Epithel Cells (Auto) 2.0 (0-13.0) /HPF Urine Bacteria (Auto) 1+ (Negative) /HPF Urine Mucus Few /HPF Urine Opiates Screen Presumptive negative Urine Methadone Screen Presumptive negative Ur Barbiturates Screen Presumptive negative Ur Phencyclidine Scrn Presumptive negative Ur Amphetamines Screen Presumptive negative U Benzodiazepines Scrn Presumptive negative Urine Cocaine Screen Presumptive negative U Marijuana (THC) Screen Presumptive negative Drugs of Abuse Note Disclamer Plasma/Serum Alcohol (0-0.07) % - EKG Data -: EKG Interpreted by [place] EKG shows normal: sinus rhythm, ST-T waves (no stemi) Rate: normal (75) - Medical Decision Making po kcl given from mild hypokalemia labs and urine neg pt denies sx or pain ambulating without difficulty Pt does not meet 1013 or acute inpat psych admission criteria however consult with will be obtained. - Differential Diagnosis uti, dehydration, psychosis Critical Care Time: No Critical care attestation.: If time is entered above; I have spent that time in minutes in the direct care of this critically ill patient, excluding procedure time. ED Disposition Clinical Impression: Dementia, Schizophrenia, Noncompliance with medication regimen Disposition: DC-01 TO HOME OR SELFCARE Is pt being admited?: No Does the pt Need Aspirin: No Condition: Stable Instructions: Dementia (ED), Schizophrenia (ED) Additional Instructions: Take your medication as prescribed. Follow-up with your doctor or doctor/clinic provided. Return if symptoms worsen as indicated by your discharge instructions. Referrals: PRIMARY CARE, [Primary Care Provider] - 3-5 Days [facility] [Outside] - 3-5 Days
[2019-06-14 18:46] VITALS: BP 164/70
== END 2019-06-14 19:22 | disposition home or self-care (01) ==
LOC: ED 08:58
DX: R42 Dizziness and giddiness (principal); F20.9 Schizophrenia, unspecified; F03.90 Unspecified dementia, unspecified severity, without behavioral disturbance, psychotic disturbance, mood disturbance, and anxiety; I10 Essential (primary) hypertension; E11.9 Type 2 diabetes mellitus without complications; Z79.899 Other long term (current) drug therapy; Z91.14 Patient's other noncompliance with medication regimen
CPT/HCPCS: 36415; 80048; 80307; 80320; 81001; 82550; 82962; 84439; 84443; 84484; 85025; 93005; 93010; G0480

== ENCOUNTER 2019-06-14 17:32 | Inpatient (IN) | payer MEDICARE ==
[2019-06-14] MEDS ORDERED: traZODone 50 MG TAB PO PRN (18:34)
[2019-06-14] MEDS ORDERED: LORazepam 2 MG/ML VIAL IM PRN (18:34)
[2019-06-14] MEDS ORDERED: HALOPERIDOL LACTATE 5 MG/1 ML INJ IM PRN (18:34)
[2019-06-15] MEDS: traZODone 50 MG TAB PO SCH ×2 (00:28→21:41)
[2019-06-15] MEDS: clonazePAM 0.5 MG TAB PO SCH ×3 (00:28→21:41)
[2019-06-15] MEDS: MELATONIN 5 MG TAB PO SCH ×2 (00:29→21:41)
[2019-06-15] MEDS: risperiDONE 3 MG TAB PO SCH ×2 (00:30→21:41)
[2019-06-15 06:18] LABS: Hematocrit 33.7 % (30.3-42.9); Hemoglobin 11.4 gm/dl (10.1-14.3); Mean Corpuscular HGB Conc 34 % (30-34); Mean Corpuscular Volume 87 fl (79-97); Platelet Count 220 K/mm3 (140-440); Red Blood Count 3.87 M/mm3 (3.65-5.03); Red Cell Distribution Width 14.3 % (13.2-15.2)
[2019-06-15 06:31] LABS: Alanine Aminotransferase 13 units/L (7-56); Albumin 3.8 g/dL (3.9-5); BUN/Creatinine Ratio 19; Blood Urea Nitrogen 13 mg/dL (7-17); Calcium 9.3 mg/dL (8.4-10.2); Chol/HDL Ratio 2.35 %; HDL Cholesterol 65 mg/dL (40-59); Hemolysis Index 88; LDL Cholesterol,Direct 76 mg/dL (50-130)
--- NOTE | 2019-06-15 07:25 | History and Physical Report ---
GP History & Physical - History of Present Illness Date of admission: 06/14/19 Date of Examination: 06/15/19 Reason for Admission: Danger to self, Psychopathology interference, Unable to care for self Chief Complaint: Hearing voices History of Present Illness: The patient is a 68year old , retired, female with history of Schizophrenia. The patients family believes she has not been taking her meds, th ey found pills and the bottle on the floor in her room. Patient reportedly has episodes of being confused and disoriented. In my interview with the patient , she was calm, pleasant and cooperative. She complains of distressing auditory hallucinations that tell her to not take her medicine. She describes her appetite as so so, and says she is not sleeping well. The patient denies SI/HI/paranoia. PAST PSYCHIATRIC HISTORY: Diagnoses: Schizophrenia Suicide attempts or Self-harm behavior: NONE Prior psychiatric hospitalizations: More than 5 previous inpatient hospitalizations ( [place] and [place]); outpatient psychiatrist was Dr. Dalton. Substance Abuse history: NONE Previous psychiatric medications tried: Klonopin , Clozapine Risperdal Valium PAST MEDICAL HISTORY: as documented by the hospitalist Family Psychiatric History Brother- paranoid delusions. SOCIAL HISTORY Marital Status: Living Arrangements: Lives with Sister Employment Status: Retired Access to guns/weapons: NO Education: College graduate- [employer] History of Abuse: Per collateral patient denies sexual, physical, and mental abuse Legal History: no pending legal issues REVIEW OF SYSTEMS Constitutional: Negative for weight loss ENT: Negative for stridor Respiratory: Negative for cough or hemoptysis All other systems reviewed and are negative Diagnoses: Paranoid Schizophrenia. Treatment Plan Patient will be admitted for inpatient psychiatric evaluation, medication adjustment and close monitoring The patient's behavior, mood, sleep and appetite will be closely monitored. Patient will be enrolled in individual and group therapeutic sessions and encouraged to attend. Patient will be provided with a safe and structured environment. Patient's physical health needs will be addressed by the Hospitalist. Hospitalist Consulted Labs including CBC, CMP, Lipid profile and Hemoglobin A1C ordered Social Assessment will be completed and the Nib Assembler will work with patient and family to ensure a suitable and safe disposition Medication adjustment will be made as clinically indicated Usual Wellness Yazidi/Preservation: - Start Trazodone 50 mg po QHS & 50 mg po QHS PRN between 10 PM & 2 AM for insomnia - Start Melatonin 5 mg po QHS to promote circadian rhythm - Start [place]-3 for brain health, reduce impulsivity, and as adjunctive treatment for mood disorder, continue upon discharge given overall benefits. - Start B1 prophylaxis with 200 mg po for 5 days The patient agreed on the treatment plan, understood the risk, benefit, alternative treatment, potential consequence of no treatment, and gave informed consent. Legal Status: Voluntary Reaction to Hospitalization: Accepting Medications and Allergies Allergies Allergy/AdvReac Type Severity Reaction Status Date / Time No Known Allergies Allergy Verified 09/17/15 10:37 Home Medications Medication Instructions Recorded Confirmed Last Taken Type Valsartan [Diovan] 1 tab PO DAILY 06/14/19 06/14/19 Unknown History clonazePAM 0.5 mg PO QHS 06/14/19 06/14/19 Unknown History clonazePAM [KlonoPIN] 0.25 mg PO QAM 06/14/19 06/14/19 Unknown History risperiDONE [RisperDAL] 3 mg PO QHS 06/14/19 06/14/19 Unknown History traZODone [Desyrel] 2 tab PO QHS PRN 06/14/19 06/14/19 Unknown History Active Meds: Active Medications Clonazepam (Klonopin) 0.5 mg PO QHS [facility] Last Admin: 06/15/19 00:28 Dose: 0.5 mg Documented by: Clonazepam (Klonopin) 0.25 mg PO QAM [facility] Haloperidol Lactate (Haldol) 5 mg IM Q6H PRN PRN Reason: Agitation Lorazepam (Ativan) 2 mg IM Q6H PRN PRN Reason: Agitation Melatonin (Melatonin) 5 mg PO QHS [facility] Last Admin: 06/15/19 00:29 Dose: 5 mg Documented by: Risperidone (Risperdal) 3 mg PO QHS [facility] Last Admin: 06/15/19 00:30 Dose: 3 mg Documented by: Trazodone HCl (Desyrel) 50 mg PO QHS [facility] Last Admin: 06/15/19 00:28 Dose: 50 mg Documented by: Trazodone HCl (Desyrel) 50 mg PO QHS PRN PRN Reason: insomnia Valsartan (Diovan) 160 mg PO DAILY [facility] Results - Results Labs/Vitals: Laboratory Last Values WBC 5.2 K/mm3 (4.5-11.0) 06/15/19 05:52 RBC 3.87 M/mm3 (3.65-5.03) 06/15/19 05:52 Hgb 11.4 gm/dl (10.1-14.3) 06/15/19 05:52 Hct 33.7 % (30.3-42.9) 06/15/19 05:52 MCV 87 fl (79-97) 06/15/19 05:52 MCH 30 pg (28-32) 06/15/19 05:52 MCHC 34 % (30-34) 06/15/19 05:52 RDW 14.3 % (13.2-15.2) 06/15/19 05:52 Plt Count 220 K/mm3 (140-440) 06/15/19 05:52 Sodium 142 mmol/L (137-145) 06/15/19 05:52 Potassium 3.9 mmol/L (3.6-5.0) 06/15/19 05:52 Chloride 107.8 mmol/L (98-107) H 06/15/19 05:52 Carbon Dioxide 20 mmol/L (22-30) L 06/15/19 05:52 Anion Gap 18 mmol/L 06/15/19 05:52 BUN 13 mg/dL (7-17) 06/15/19 05:52 Creatinine 0.7 mg/dL (0.7-1.2) 06/15/19 05:52 Estimated GFR > 60 ml/min 06/15/19 05:52 BUN/Creatinine Ratio 19 % 06/15/19 05:52 Glucose 97 mg/dL (65-100) 06/15/19 05:52 Hemoglobin A1c 5.6 % (4-6) 06/15/19 05:52 Calcium 9.3 mg/dL (8.4-10.2) 06/15/19 05:52 Total Bilirubin 0.30 mg/dL (0.1-1.2) 06/15/19 05:52 AST 26 units/L (5-40) 06/15/19 05:52 ALT 13 units/L (7-56) 06/15/19 05:52 Alkaline Phosphatase 57 units/L (35-129) 06/15/19 05:52 Total Protein 6.7 g/dL (6.3-8.2) 06/15/19 05:52 Albumin 3.8 g/dL (3.9-5) L 06/15/19 05:52 Albumin/Globulin Ratio 1.3 % 06/15/19 05:52 Triglycerides 75 mg/dL (2-149) 06/15/19 05:52 Cholesterol 153 mg/dL (50-199) 06/15/19 05:52 LDL Cholesterol Direct 76 mg/dL (50-130) 06/15/19 05:52 HDL Cholesterol 65 mg/dL (40-59) H 06/15/19 05:52 Cholesterol/HDL Ratio 2.35 % 06/15/19 05:52 Last Vital Signs Temp 98.0 F 06/15/19 02:28 Pulse 96 H 06/15/19 02:28 Resp 20 06/15/19 02:28 BP 181/71 06/15/19 02:28 Pulse Ox 98 06/15/19 02:28 Physical Examination - Constitutional Vitals: Vital Signs Temp Pulse Resp BP Pulse Ox 98.0 F 96 H 20 181/71 98 06/15/19 02:28 06/15/19 02:28 06/15/19 02:28 06/15/19 02:28 06/15/19 02:28 Temperature -Last 24 Hours Temperature 98.0 F Mental Status Exam - Vital signs Last Vital Signs Temp 98.0 F 06/15/19 02:28 Pulse 96 H 06/15/19 02:28 Resp 20 06/15/19 02:28 BP 181/71 06/15/19 02:28 Pulse Ox 98 06/15/19 02:28 - Exam Orientation: place Affect: depressed, anxious Mood: congruent with affect Thought content: paranoia Thought Process: Intact Perceptions: auditory, command, hallucinations Speech: paucity Concentration: focused Motor activity: lethargic Level of consciousness: alert Memory: Intact Sleep Symptoms: None Interaction: cooperative Physician Certification - Certification Statement Physician Certification Statement: This is an acknowledgement statement that LUCERO STERLING is a 68 year old F who requires inpatient psychiatric admission for treatment which could reasonably be expected to improve the patient's condition for paranoid s chizophrenia Estimated period of time patient will need to remain in the hospital: 7 days Plan for post-hospital care: Out-patient care
[2019-06-15 09:42] LABS: Basophils % (Manual) 0 % (0.0-1.8); Total Cells Counted 100
[2019-06-15 09:43] LABS: Large Platelets Few; Platelet Estimate Cons; RBC Morphology Normal
[2019-06-15] MEDS: VALSARTAN 160MG TAB PO SCH (13:16)
--- NOTE | 2019-06-16 09:49 | Progress Note ---
Subjective Date of service: 06/16/19 Principal diagnosis: Schizophrenia Subjective Comment: I interviewed the patient this morning. Medical records reviewed and patient's progress was discussed with unit staff. Nursing staff reports that patient is alert and oriented to person, calm and cooperative, selectively mute, withdrawn, consumed bedtime snacks, medication compliant, self care, no complaints voiced, no distress noted, [id number] on going, bed alarm applied In my interview with the patient the patient stated she felt good. The patient stated that she was not hearing voices. The patient describes her appetite is better, and she slept well. The patient denies SI/HI/paranoia. Review of Symptoms: Constitutional: Negative for weight loss ENT: Negative for stridor Respiratory: Negative for cough or hemoptysis All other systems reviewed and are negative MSE Appearance: Wearing appropriate clothing. Good hygiene Behavior: Pleasant and cooperative. Mood: "Good" Affect: Congruent with stated mood Thought Process: Goal directed Speech: Normal rate. Thought Content Harmfulness Denies SI/HI Hallucinations: patient denies Delusions: none elicited Consciousness: alert. Cognition/Memory: normal. Insight/Judgment: Limited. Diagnoses: Paranoid Schizophrenia Treatment Plan Due to the psychiatric conditions and treatment listed in the Assessment and Plan - the patient requires continued hospitalization. Will continue inpatient treatment to allow for medication adjustment and monitoring. Will continue q15 min safety checks. Will encourage the use of environmental modifications and non-pharmacologic approaches for the management of behavioral and psychological symptoms. Will continue current psych medications Monitor for medication side effects. The patient will continue on medications for physical illnesses, and Hospitalist will closely monitor these Continue intensive physical and occupational therapies. Monitor patient's mood, sleep, appetite, and behavior closely. Encourage patient to participate in individual and group therapeutic sessions on the [place]. Will provide a safe and therapeutic environment for patient. ELOS 6 days Medications and Allergies Allergies Allergy/AdvReac Type Severity Reaction Status Date / Time No Known Allergies Allergy Verified 09/17/15 10:37 Home Medications Medication Instructions Recorded Confirmed Last Taken Type Valsartan [Diovan] 1 tab PO DAILY 06/14/19 06/14/19 Unknown History clonazePAM 0.5 mg PO QHS 06/14/19 06/14/19 Unknown History clonazePAM [KlonoPIN] 0.25 mg PO QAM 06/14/19 06/14/19 Unknown History risperiDONE [RisperDAL] 3 mg PO QHS 06/14/19 06/14/19 Unknown History traZODone [Desyrel] 2 tab PO QHS PRN 06/14/19 06/14/19 Unknown History Active Meds: Active Medications Clonazepam (Klonopin) 0.5 mg PO QHS [facility] Last Admin: 06/15/19 21:41 Dose: 0.5 mg Documented by: Clonazepam (Klonopin) 0.25 mg PO [facility] Last Admin: 06/15/19 13:17 Dose: 0.25 mg Documented by: Haloperidol Lactate (Haldol) 5 mg IM Q6H PRN PRN Reason: Agitation Lorazepam (Ativan) 2 mg IM Q6H PRN PRN Reason: Agitation Melatonin (Melatonin) 5 mg PO QHS [facility] Last Admin: 06/15/19 21:41 Dose: 5 mg Documented by: Risperidone (Risperdal) 3 mg PO QHS [facility] Last Admin: 06/15/19 21:41 Dose: 3 mg Documented by: Trazodone HCl (Desyrel) 50 mg PO QHS [facility] Last Admin: 06/15/19 21:41 Dose: 50 mg Documented by: Trazodone HCl (Desyrel) 50 mg PO QHS PRN PRN Reason: insomnia Valsartan (Diovan) 160 mg PO DAILY [facility] Last Admin: 06/15/19 13:16 Dose: 160 mg Documented by: Results - Results Labs/Vitals: Laboratory Last Values WBC 5.2 K/mm3 (4.5-11.0) 06/15/19 05:52 RBC 3.87 M/mm3 (3.65-5.03) 06/15/19 05:52 Hgb 11.4 gm/dl (10.1-14.3) 06/15/19 05:52 Hct 33.7 % (30.3-42.9) 06/15/19 05:52 MCV 87 fl (79-97) 06/15/19 05:52 MCH 30 pg (28-32) 06/15/19 05:52 MCHC 34 % (30-34) 06/15/19 05:52 RDW 14.3 % (13.2-15.2) 06/15/19 05:52 Plt Count 220 K/mm3 (140-440) 06/15/19 05:52 Add Manual Diff Complete 06/15/19 05:52 Total Counted 100 06/15/19 05:52 Seg Neuts % (Manual) 68.0 % (40.0-70.0) 06/15/19 05:52 Band Neutrophils % 0 % 06/15/19 05:52 Lymphocytes % (Manual) 25.0 % (13.4-35.0) 06/15/19 05:52 Reactive Lymphs % (Man) 0 % 06/15/19 05:52 Monocytes % (Manual) 6.0 % (0.0-7.3) 06/15/19 05:52 Eosinophils % (Manual) 1.0 % (0.0-4.3) 06/15/19 05:52 Basophils % (Manual) 0 % (0.0-1.8) 06/15/19 05:52 Metamyelocytes % 0 % 06/15/19 05:52 Myelocytes % 0 % 06/15/19 05:52 Promyelocytes % 0 % 06/15/19 05:52 Blast Cells % 0 % 06/15/19 05:52 Nucleated RBC % Not Reportable 06/15/19 05:52 Seg Neutrophils # Man 3.5 K/mm3 (1.8-7.7) 06/15/19 05:52 Band Neutrophils # 0.0 K/mm3 06/15/19 05:52 Lymphocytes # (Manual) 1.3 K/mm3 (1.2-5.4) 06/15/19 05:52 Abs React Lymphs (Man) 0.0 K/mm3 06/15/19 05:52 Monocytes # (Manual) 0.3 K/mm3 (0.0-0.8) 06/15/19 05:52 Eosinophils # (Manual) 0.1 K/mm3 (0.0-0.4) 06/15/19 05:52 Basophils # (Manual) 0.0 K/mm3 (0.0-0.1) 06/15/19 05:52 Metamyelocytes # 0.0 K/mm3 06/15/19 05:52 Myelocytes # 0.0 K/mm3 06/15/19 05:52 Promyelocytes # 0.0 K/mm3 06/15/19 05:52 Blast Cells # 0.0 K/mm3 06/15/19 05:52 WBC Morphology Not Reportable 06/15/19 05:52 Hypersegmented Neuts Not Reportable 06/15/19 05:52 Hyposegmented Neuts Not Reportable 06/15/19 05:52 Hypogranular Neuts Not Reportable 06/15/19 05:52 Smudge Cells Not Reportable 06/15/19 05:52 Toxic Granulation Not Reportable 06/15/19 05:52 Toxic Vacuolation Not Reportable 06/15/19 05:52 Dohle Bodies Not Reportable 06/15/19 05:52 Pelger-Huet Anomaly Not Reportable 06/15/19 05:52 Do Rods Not Reportable 06/15/19 05:52 Platelet Estimate Cons 06/15/19 05:52 Clumped Platelets Not Reportable 06/15/19 05:52 Plt Clumps, EDTA Not Reportable 06/15/19 05:52 Large Platelets Few 06/15/19 05:52 Giant Platelets Not Reportable 06/15/19 05:52 Platelet Satelliting Not Reportable 06/15/19 05:52 Plt Morphology Comment Not Reportable 06/15/19 05:52 RBC Morphology Normal 06/15/19 05:52 Dimorphic RBCs Not Reportable 06/15/19 05:52 Polychromasia Not Reportable 06/15/19 05:52 Hypochromasia Not Reportable 06/15/19 05:52 Poikilocytosis Not Reportable 06/15/19 05:52 Anisocytosis Not Reportable 06/15/19 05:52 Microcytosis Not Reportable 06/15/19 05:52 Macrocytosis Not Reportable 06/15/19 05:52 Spherocytes Not Reportable 06/15/19 05:52 Pappenheimer Bodies Not Reportable 06/15/19 05:52 Sickle Cells Not Reportable 06/15/19 05:52 Target Cells Not Reportable 06/15/19 05:52 Tear Drop Cells Not Reportable 06/15/19 05:52 Ovalocytes Not Reportable 06/15/19 05:52 Helmet Cells Not Reportable 06/15/19 05:52 [place] Bodies Not Reportable 06/15/19 05:52 [place] Rings Not Reportable 06/15/19 05:52 [place] Cells Not Reportable 06/15/19 05:52 Bite Cells Not Reportable 06/15/19 05:52 Crenated Cell Not Reportable 06/15/19 05:52 Elliptocytes Not Reportable 06/15/19 05:52 Acanthocytes (Spur) Not Reportable 06/15/19 05:52 Rouleaux Not Reportable 06/15/19 05:52 Hemoglobin C Crystals Not Reportable 06/15/19 05:52 Schistocytes Not Reportable 06/15/19 05:52 Malaria parasites Not Reportable 06/15/19 05:52 [place] Bodies Not Reportable 06/15/19 05:52 Hem Pathologist Commnt No 06/15/19 05:52 Sodium 142 mmol/L (137-145) 06/15/19 05:52 Potassium 3.9 mmol/L (3.6-5.0) 06/15/19 05:52 Chloride 107.8 mmol/L (98-107) H 06/15/19 05:52 Carbon Dioxide 20 mmol/L (22-30) L 06/15/19 05:52 Anion Gap 18 mmol/L 06/15/19 05:52 BUN 13 mg/dL (7-17) 06/15/19 05:52 Creatinine 0.7 mg/dL (0.7-1.2) 06/15/19 05:52 Estimated GFR > 60 ml/min 06/15/19 05:52 BUN/Creatinine Ratio 19 % 06/15/19 05:52 Glucose 97 mg/dL (65-100) 06/15/19 05:52 Hemoglobin A1c 5.6 % (4-6) 06/15/19 05:52 Calcium 9.3 mg/dL (8.4-10.2) 06/15/19 05:52 Total Bilirubin 0.30 mg/dL (0.1-1.2) 06/15/19 05:52 AST 26 units/L (5-40) 06/15/19 05:52 ALT 13 units/L (7-56) 06/15/19 05:52 Alkaline Phosphatase 57 units/L (35-129) 06/15/19 05:52 Total Protein 6.7 g/dL (6.3-8.2) 06/15/19 05:52 Albumin 3.8 g/dL (3.9-5) L 06/15/19 05:52 Albumin/Globulin Ratio 1.3 % 06/15/19 05:52 Triglycerides 75 mg/dL (2-149) 06/15/19 05:52 Cholesterol 153 mg/dL (50-199) 06/15/19 05:52 LDL Cholesterol Direct 76 mg/dL (50-130) 06/15/19 05:52 HDL Cholesterol 65 mg/dL (40-59) H 06/15/19 05:52 Cholesterol/HDL Ratio 2.35 % 06/15/19 05:52 Last Vital Signs Temp 98.3 F 06/15/19 22:00 Pulse 68 06/15/19 22:00 Resp 18 06/15/19 22:00 BP 161/81 06/15/19 22:00 Pulse Ox 100 06/15/19 22:00
[2019-06-16] MEDS: VALSARTAN 160MG TAB PO SCH (11:25)
[2019-06-16] MEDS: clonazePAM 0.5 MG TAB PO SCH ×2 (11:35→21:08)
[2019-06-16] MEDS: traZODone 50 MG TAB PO SCH (21:08)
[2019-06-16] MEDS: MELATONIN 5 MG TAB PO SCH (21:08)
[2019-06-16] MEDS: risperiDONE 3 MG TAB PO SCH (21:09)
[2019-06-17] MEDS: clonazePAM 0.5 MG TAB PO SCH ×2 (09:49→21:50)
[2019-06-17] MEDS: VALSARTAN 160MG TAB PO SCH (09:49)
--- NOTE | 2019-06-17 12:51 | Progress Note ---
Subjective Date of service: 06/17/19 Principal diagnosis: Schizophrenia Subjective Comment: Subjective Date of service: 06/16/19 Principal diagnosis: Schizophrenia Subjective Comment: I interviewed the patient this morning. Medical records reviewed and patient's progress was discussed with unit staff. Nursing staff reports that patient is observed in the activity room isolated and withdrawn to self. She is a/o x 2 mood and affect appears sad. Pt is yi speaking, but is able to make needs known. She is selectively mute. She is neat and appropriately dressed and no complaints of pain. Will continue to monitor q 15 min for safety. Attempted to interview patient this morning. Patient was in dayroom sitting alone. She would not answer any questions acknowledge me during interview. When asked simple questions pt would just put her head down or turn her head. Review of Symptoms: Constitutional: Negative for weight loss ENT: Negative for stridor Respiratory: Negative for cough or hemoptysis All other systems reviewed and are negative MSE Appearance: Wearing appropriate clothing. Good hygiene Behavior: calm and uncooperative, withdrawn Mood: Unable to assess Affect: restricted Thought Process: unable to assess Speech: Normal rate. Thought Content Unable to assess Consciousness: alert. Cognition/Memory: unable to assess Insight/Judgment: Limited. Diagnoses: Paranoid Schizophrenia Treatment Plan Due to the psychiatric conditions and treatment listed in the Assessment and Plan - the patient requires continued hospitalization. Will continue inpatient treatment to allow for medication adjustment and monitoring. Will continue q15 min safety checks. Will encourage the use of environmental modifications and non-pharmacologic approaches for the management of behavioral and psychological symptoms. Will continue current psych medications Monitor for medication side effects. The patient will continue on medications for physical illnesses, and Hospitalist will closely monitor these Continue intensive physical and occupational therapies. Monitor patient's mood, sleep, appetite, and behavior closely. Encourage patient to participate in individual and group therapeutic sessions on the [place]. Will provide a safe and therapeutic environment for patient. Medications and Allergies Allergies Allergy/AdvReac Type Severity Reaction Status Date / Time No Known Allergies Allergy Verified 09/17/15 10:37 Home Medications Medication Instructions Recorded Confirmed Last Taken Type Valsartan [Diovan] 1 tab PO DAILY 06/14/19 06/17/19 Unknown History clonazePAM 0.5 mg PO QHS 06/14/19 06/17/19 Unknown History clonazePAM [KlonoPIN] 0.25 mg PO QAM 06/14/19 06/17/19 Unknown History risperiDONE [RisperDAL] 3 mg PO QHS 06/14/19 06/17/19 Unknown History traZODone [Desyrel] 50 mg PO QHS PRN 06/14/19 06/17/19 Unknown History Fenofibrate Nanocrystallized 48 mg pe PO DAILY 06/17/19 06/17/19 Unknown History [Fenofibrate] risperiDONE [RisperDAL] 1 mg PO DAILY 06/17/19 06/17/19 Unknown History Active Meds: Active Medications Clonazepam (Klonopin) 0.5 mg PO QHS [facility] Last Admin: 06/16/19 21:08 Dose: 0.5 mg Documented by: Clonazepam (Klonopin) 0.25 mg PO [facility] Last Admin: 06/17/19 09:49 Dose: 0.25 mg Documented by: Haloperidol Lactate (Haldol) 5 mg IM Q6H PRN PRN Reason: Agitation Lorazepam (Ativan) 2 mg IM Q6H PRN PRN Reason: Agitation [facility] Admin: 06/16/19 21:08 Dose: 5 mg Documented by: Risperidone (Risperdal) 3 mg PO QHS [facility] Last Admin: 06/16/19 21:09 Dose: 3 mg Documented by: Trazodone HCl (Desyrel) 50 mg PO QHS [facility] Last Admin: 06/16/19 21:08 Dose: 50 mg Documented by: Trazodone HCl (Desyrel) 50 mg PO QHS PRN PRN Reason: insomnia Valsartan (Diovan) 160 mg PO DAILY [facility] Last Admin: 06/17/19 09:49 Dose: 160 mg Documented by: Results - Results Labs/Vitals: Laboratory Last Values WBC 5.2 K/mm3 (4.5-11.0) 06/15/19 05:52 RBC 3.87 M/mm3 (3.65-5.03) 06/15/19 05:52 Hgb 11.4 gm/dl (10.1-14.3) 06/15/19 05:52 Hct 33.7 % (30.3-42.9) 06/15/19 05:52 MCV 87 fl (79-97) 06/15/19 05:52 MCH 30 pg (28-32) 06/15/19 05:52 MCHC 34 % (30-34) 06/15/19 05:52 RDW 14.3 % (13.2-15.2) 06/15/19 05:52 Plt Count 220 K/mm3 (140-440) 06/15/19 05:52 Add Manual Diff Complete 06/15/19 05:52 Total Counted 100 06/15/19 05:52 Seg Neuts % (Manual) 68.0 % (40.0-70.0) 06/15/19 05:52 Band Neutrophils % 0 % 06/15/19 05:52 Lymphocytes % (Manual) 25.0 % (13.4-35.0) 06/15/19 05:52 Reactive Lymphs % (Man) 0 % 06/15/19 05:52 Monocytes % (Manual) 6.0 % (0.0-7.3) 06/15/19 05:52 Eosinophils % (Manual) 1.0 % (0.0-4.3) 06/15/19 05:52 Basophils % (Manual) 0 % (0.0-1.8) 06/15/19 05:52 Metamyelocytes % 0 % 06/15/19 05:52 Myelocytes % 0 % 06/15/19 05:52 Promyelocytes % 0 % 06/15/19 05:52 Blast Cells % 0 % 06/15/19 05:52 Nucleated RBC % Not Reportable 06/15/19 05:52 Seg Neutrophils # Man 3.5 K/mm3 (1.8-7.7) 06/15/19 05:52 Band Neutrophils # 0.0 K/mm3 06/15/19 05:52 Lymphocytes # (Manual) 1.3 K/mm3 (1.2-5.4) 06/15/19 05:52 Abs React Lymphs (Man) 0.0 K/mm3 06/15/19 05:52 Monocytes # (Manual) 0.3 K/mm3 (0.0-0.8) 06/15/19 05:52 Eosinophils # (Manual) 0.1 K/mm3 (0.0-0.4) 06/15/19 05:52 Basophils # (Manual) 0.0 K/mm3 (0.0-0.1) 06/15/19 05:52 Metamyelocytes # 0.0 K/mm3 06/15/19 05:52 Myelocytes # 0.0 K/mm3 06/15/19 05:52 Promyelocytes # 0.0 K/mm3 06/15/19 05:52 Blast Cells # 0.0 K/mm3 06/15/19 05:52 WBC Morphology Not Reportable 06/15/19 05:52 Hypersegmented Neuts Not Reportable 06/15/19 05:52 Hyposegmented Neuts Not Reportable 06/15/19 05:52 Hypogranular Neuts Not Reportable 06/15/19 05:52 Smudge Cells Not Reportable 06/15/19 05:52 Toxic Granulation Not Reportable 06/15/19 05:52 Toxic Vacuolation Not Reportable 06/15/19 05:52 Dohle Bodies Not Reportable 06/15/19 05:52 Pelger-Huet Anomaly Not Reportable 06/15/19 05:52 Do Rods Not Reportable 06/15/19 05:52 Platelet Estimate Cons 06/15/19 05:52 Clumped Platelets Not Reportable 06/15/19 05:52 Plt Clumps, EDTA Not Reportable 06/15/19 05:52 Large Platelets Few 06/15/19 05:52 Giant Platelets Not Reportable 06/15/19 05:52 Platelet Satelliting Not Reportable 06/15/19 05:52 Plt Morphology Comment Not Reportable 06/15/19 05:52 RBC Morphology Normal 06/15/19 05:52 Dimorphic RBCs Not Reportable 06/15/19 05:52 Polychromasia Not Reportable 06/15/19 05:52 Hypochromasia Not Reportable 06/15/19 05:52 Poikilocytosis Not Reportable 06/15/19 05:52 Anisocytosis Not Reportable 06/15/19 05:52 Microcytosis Not Reportable 06/15/19 05:52 Macrocytosis Not Reportable 06/15/19 05:52 Spherocytes Not Reportable 06/15/19 05:52 Pappenheimer Bodies Not Reportable 06/15/19 05:52 Sickle Cells Not Reportable 06/15/19 05:52 Target Cells Not Reportable 06/15/19 05:52 Tear Drop Cells Not Reportable 06/15/19 05:52 Ovalocytes Not Reportable 06/15/19 05:52 Helmet Cells Not Reportable 06/15/19 05:52 [place] Bodies Not Reportable 06/15/19 05:52 [place] Rings Not Reportable 06/15/19 05:52 [place] Cells Not Reportable 06/15/19 05:52 Bite Cells Not Reportable 06/15/19 05:52 Crenated Cell Not Reportable 06/15/19 05:52 Elliptocytes Not Reportable 06/15/19 05:52 Acanthocytes (Spur) Not Reportable 06/15/19 05:52 Rouleaux Not Reportable 06/15/19 05:52 Hemoglobin C Crystals Not Reportable 06/15/19 05:52 Schistocytes Not Reportable 06/15/19 05:52 Malaria parasites Not Reportable 06/15/19 05:52 Yinka Bodies Not Reportable 06/15/19 05:52 Hem Pathologist Commnt No 06/15/19 05:52 Sodium 142 mmol/L (137-145) 06/15/19 05:52 Potassium 3.9 mmol/L (3.6-5.0) 06/15/19 05:52 Chloride 107.8 mmol/L (98-107) H 06/15/19 05:52 Carbon Dioxide 20 mmol/L (22-30) L 06/15/19 05:52 Anion Gap 18 mmol/L 06/15/19 05:52 BUN 13 mg/dL (7-17) 06/15/19 05:52 Creatinine 0.7 mg/dL (0.7-1.2) 06/15/19 05:52 Estimated GFR > 60 ml/min 06/15/19 05:52 BUN/Creatinine Ratio 19 % 06/15/19 05:52 Glucose 97 mg/dL (65-100) 06/15/19 05:52 Hemoglobin A1c 5.6 % (4-6) 06/15/19 05:52 Calcium 9.3 mg/dL (8.4-10.2) 06/15/19 05:52 Total Bilirubin 0.30 mg/dL (0.1-1.2) 06/15/19 05:52 AST 26 units/L (5-40) 06/15/19 05:52 ALT 13 units/L (7-56) 06/15/19 05:52 Alkaline Phosphatase 57 units/L (35-129) 06/15/19 05:52 Total Protein 6.7 g/dL (6.3-8.2) 06/15/19 05:52 Albumin 3.8 g/dL (3.9-5) L 06/15/19 05:52 Albumin/Globulin Ratio 1.3 % 06/15/19 05:52 Triglycerides 75 mg/dL (2-149) 06/15/19 05:52 Cholesterol 153 mg/dL (50-199) 06/15/19 05:52 LDL Cholesterol Direct 76 mg/dL (50-130) 06/15/19 05:52 HDL Cholesterol 65 mg/dL (40-59) H 06/15/19 05:52 Cholesterol/HDL Ratio 2.35 % 06/15/19 05:52 Last Vital Signs Temp 98.3 F 06/17/19 10:01 Pulse 101 H 06/17/19 10:01 Resp 20 06/17/19 10:01 BP 156/54 06/17/19 10:01 Pulse Ox 100 06/17/19 10:01
[2019-06-17] MEDS: risperiDONE 3 MG TAB PO SCH (21:50)
[2019-06-17] MEDS: MELATONIN 5 MG TAB PO SCH (21:50)
[2019-06-17] MEDS: traZODone 50 MG TAB PO SCH (21:50)
--- NOTE | 2019-06-18 08:18 | Progress Note ---
Subjective Date of service: 06/18/19 Principal diagnosis: Schizophrenia Subjective Comment: Subjective Date of service: 06/16/19 Principal diagnosis: Schizophrenia Subjective Comment: I interviewed the patient this morning. Medical records reviewed and patient's progress was discussed with unit staff. Nursing staff reports patient is alert and hearing is selective. No verbalization. Patient is able to follow verbal commands and is compliant with PO medications. Ambulates with no assist. Withdrawn and isolate to self. During my interview with patient this morning she participated more today than yesterday. Mrs Ibarra states she slept well, and her mood was good. When asked about suicidal thoughts she said "no" and buried her face in the cover. She is still very much withdrawn and made little eye contact. Review of Symptoms: Constitutional: Negative for weight loss ENT: Negative for stridor Respiratory: Negative for cough or hemoptysis All other systems reviewed and are negative MSE Appearance: Wearing appropriate clothing. In bed. Behavior: calm and withdrawn Mood: Good Affect: restricted Thought Process: unable to assess Speech: Normal rate. Thought Process: Goal directed Speech: Normal rate. Thought Content Harmfulness Denies SI/HI Hallucinations: patient denies Delusions: none elicited Consciousness: alert. Cognition/Memory: fair Insight/Judgment: Limited. Diagnoses: Paranoid Schizophrenia Treatment Plan Due to the psychiatric conditions and treatment listed in the Assessment and Plan - the patient requires continued hospitalization. Will continue inpatient treatment to allow for medication adjustment and monitoring. Will continue q15 min safety checks. Will encourage the use of environmental modifications and non-pharmacologic approaches for the management of behavioral and psychological symptoms. Will continue current psych medications Monitor for medication side effects. The patient will continue on medications for physical illnesses, and Hospitalist will closely monitor these Continue intensive physical and occupational therapies. Monitor patient's mood, sleep, appetite, and behavior closely. Encourage patient to participate in individual and group therapeutic sessions on the [place]. Will provide a safe and therapeutic environment for patient. Medications and Allergies Allergies Allergy/AdvReac Type Severity Reaction Status Date / Time No Known Allergies Allergy Verified 09/17/15 10:37 Home Medications Medication Instructions Recorded Confirmed Last Taken Type Valsartan [Diovan] 1 tab PO DAILY 06/14/19 06/17/19 Unknown History clonazePAM 0.5 mg PO QHS 06/14/19 06/17/19 Unknown History clonazePAM [KlonoPIN] 0.25 mg PO QAM 06/14/19 06/17/19 Unknown History risperiDONE [RisperDAL] 3 mg PO QHS 06/14/19 06/17/19 Unknown History traZODone [Desyrel] 50 mg PO QHS PRN 06/14/19 06/17/19 Unknown History Fenofibrate Nanocrystallized 48 mg pe PO DAILY 06/17/19 06/17/19 Unknown History [Fenofibrate] risperiDONE [RisperDAL] 1 mg PO DAILY 06/17/19 06/17/19 Unknown History Active Meds: Active Medications Clonazepam (Klonopin) 0.5 mg PO QHS [facility] Last Admin: 06/17/19 21:50 Dose: 0.5 mg Documented by: [facility]az[facility] ([facility]) [facility] [place] Last Admin: 06/17/19 09:49 Dose: 0.25 mg Documented by: Haloperidol Lactate (Haldol) 5 mg IM Q6H PRN PRN Reason: Agitation Lorazepam (Ativan) 2 mg IM Q6H PRN PRN Reason: Agitation [facility] Last Admin: 06/17/19 21:50 Dose: 5 mg Documented by: Risperidone (Risperdal) 3 mg PO QHS [facility] Last Admin: 06/17/19 21:50 Dose: 3 mg Documented by: Trazodone HCl (Desyrel) 50 mg PO QHS [facility] Last Admin: 06/17/19 21:50 Dose: 50 mg Documented by: Trazodone HCl (Desyrel) 50 mg PO QHS PRN PRN Reason: insomnia Valsartan (Diovan) 160 mg PO DAILY [facility] Last Admin: 06/17/19 09:49 Dose: 160 mg Documented by: Results - Results Labs/Vitals: Laboratory Last Values WBC 5.2 K/mm3 (4.5-11.0) 06/15/19 05:52 RBC 3.87 M/mm3 (3.65-5.03) 06/15/19 05:52 Hgb 11.4 gm/dl (10.1-14.3) 06/15/19 05:52 Hct 33.7 % (30.3-42.9) 06/15/19 05:52 MCV 87 fl (79-97) 06/15/19 05:52 MCH 30 pg (28-32) 06/15/19 05:52 MCHC 34 % (30-34) 06/15/19 05:52 RDW 14.3 % (13.2-15.2) 06/15/19 05:52 Plt Count 220 K/mm3 (140-440) 06/15/19 05:52 Add Manual Diff Complete 06/15/19 05:52 Total Counted 100 06/15/19 05:52 Seg Neuts % (Manual) 68.0 % (40.0-70.0) 06/15/19 05:52 Band Neutrophils % 0 % 06/15/19 05:52 Lymphocytes % (Manual) 25.0 % (13.4-35.0) 06/15/19 05:52 Reactive Lymphs % (Man) 0 % 06/15/19 05:52 Monocytes % (Manual) 6.0 % (0.0-7.3) 06/15/19 05:52 Eosinophils % (Manual) 1.0 % (0.0-4.3) 06/15/19 05:52 Basophils % (Manual) 0 % (0.0-1.8) 06/15/19 05:52 Metamyelocytes % 0 % 06/15/19 05:52 Myelocytes % 0 % 06/15/19 05:52 Promyelocytes % 0 % 06/15/19 05:52 Blast Cells % 0 % 06/15/19 05:52 Nucleated RBC % Not Reportable 06/15/19 05:52 Seg Neutrophils # Man 3.5 K/mm3 (1.8-7.7) 06/15/19 05:52 Band Neutrophils # 0.0 K/mm3 06/15/19 05:52 Lymphocytes # (Manual) 1.3 K/mm3 (1.2-5.4) 06/15/19 05:52 Abs React Lymphs (Man) 0.0 K/mm3 06/15/19 05:52 Monocytes # (Manual) 0.3 K/mm3 (0.0-0.8) 06/15/19 05:52 Eosinophils # (Manual) 0.1 K/mm3 (0.0-0.4) 06/15/19 05:52 Basophils # (Manual) 0.0 K/mm3 (0.0-0.1) 06/15/19 05:52 Metamyelocytes # 0.0 K/mm3 06/15/19 05:52 Myelocytes # 0.0 K/mm3 06/15/19 05:52 Promyelocytes # 0.0 K/mm3 06/15/19 05:52 Blast Cells # 0.0 K/mm3 06/15/19 05:52 WBC Morphology Not Reportable 06/15/19 05:52 Hypersegmented Neuts Not Reportable 06/15/19 05:52 Hyposegmented Neuts Not Reportable 06/15/19 05:52 Hypogranular Neuts Not Reportable 06/15/19 05:52 Smudge Cells Not Reportable 06/15/19 05:52 Toxic Granulation Not Reportable 06/15/19 05:52 Toxic Vacuolation Not Reportable 06/15/19 05:52 Dohle Bodies Not Reportable 06/15/19 05:52 Pelger-Huet Anomaly Not Reportable 06/15/19 05:52 Do Rods Not Reportable 06/15/19 05:52 Platelet Estimate Cons 06/15/19 05:52 Clumped Platelets Not Reportable 06/15/19 05:52 Plt Clumps, EDTA Not Reportable 06/15/19 05:52 Large Platelets Few 06/15/19 05:52 Giant Platelets Not Reportable 06/15/19 05:52 Platelet Satelliting Not Reportable 06/15/19 05:52 Plt Morphology Comment Not Reportable 06/15/19 05:52 RBC Morphology Normal 06/15/19 05:52 Dimorphic RBCs Not Reportable 06/15/19 05:52 Polychromasia Not Reportable 06/15/19 05:52 Hypochromasia Not Reportable 06/15/19 05:52 Poikilocytosis Not Reportable 06/15/19 05:52 Anisocytosis Not Reportable 06/15/19 05:52 Microcytosis Not Reportable 06/15/19 05:52 Macrocytosis Not Reportable 06/15/19 05:52 Spherocytes Not Reportable 06/15/19 05:52 Pappenheimer Bodies Not Reportable 06/15/19 05:52 Sickle Cells Not Reportable 06/15/19 05:52 Target Cells Not Reportable 06/15/19 05:52 Tear Drop Cells Not Reportable 06/15/19 05:52 Ovalocytes Not Reportable 06/15/19 05:52 Helmet Cells Not Reportable 06/15/19 05:52 [place] Bodies Not Reportable 06/15/19 05:52 [place] Rings Not Reportable 06/15/19 05:52 [place] Cells Not Reportable 06/15/19 05:52 Bite Cells Not Reportable 06/15/19 05:52 Crenated Cell Not Reportable 06/15/19 05:52 Elliptocytes Not Reportable 06/15/19 05:52 Acanthocytes (Spur) Not Reportable 06/15/19 05:52 Rouleaux Not Reportable 06/15/19 05:52 Hemoglobin C Crystals Not Reportable 06/15/19 05:52 Schistocytes Not Reportable 06/15/19 05:52 Malaria parasites Not Reportable 06/15/19 05:52 [place] Bodies Not Reportable 06/15/19 05:52 Hem Pathologist Commnt No 06/15/19 05:52 Sodium 142 mmol/L (137-145) 06/15/19 05:52 Potassium 3.9 mmol/L (3.6-5.0) 06/15/19 05:52 Chloride 107.8 mmol/L (98-107) H 06/15/19 05:52 Carbon Dioxide 20 mmol/L (22-30) L 06/15/19 05:52 Anion Gap 18 mmol/L 06/15/19 05:52 BUN 13 mg/dL (7-17) 06/15/19 05:52 Creatinine 0.7 mg/dL (0.7-1.2) 06/15/19 05:52 Estimated GFR > 60 ml/min 06/15/19 05:52 BUN/Creatinine Ratio 19 % 06/15/19 05:52 Glucose 97 mg/dL (65-100) 06/15/19 05:52 Hemoglobin A1c 5.6 % (4-6) 06/15/19 05:52 Calcium 9.3 mg/dL (8.4-10.2) 06/15/19 05:52 Total Bilirubin 0.30 mg/dL (0.1-1.2) 06/15/19 05:52 AST 26 units/L (5-40) 06/15/19 05:52 ALT 13 units/L (7-56) 06/15/19 05:52 Alkaline Phosphatase 57 units/L (35-129) 06/15/19 05:52 Total Protein 6.7 g/dL (6.3-8.2) 06/15/19 05:52 Albumin 3.8 g/dL (3.9-5) L 06/15/19 05:52 Albumin/Globulin Ratio 1.3 % 06/15/19 05:52 Triglycerides 75 mg/dL (2-149) 06/15/19 05:52 Cholesterol 153 mg/dL (50-199) 06/15/19 05:52 LDL Cholesterol Direct 76 mg/dL (50-130) 06/15/19 05:52 HDL Cholesterol 65 mg/dL (40-59) H 06/15/19 05:52 Cholesterol/HDL Ratio 2.35 % 06/15/19 05:52 Last Vital Signs Temp 97.8 F 06/17/19 22:00 Pulse 100 H 06/17/19 22:00 Resp 18 06/17/19 22:00 BP 183/94 06/17/19 22:00 Pulse Ox 100 06/17/19 22:00
[2019-06-18] MEDS: VALSARTAN 160MG TAB PO SCH (09:36)
[2019-06-18] MEDS: clonazePAM 0.5 MG TAB PO SCH ×2 (09:37→21:26)
[2019-06-18] MEDS: traZODone 50 MG TAB PO SCH (21:25)
[2019-06-18] MEDS: MELATONIN 5 MG TAB PO SCH (21:26)
[2019-06-18] MEDS: risperiDONE 3 MG TAB PO SCH (21:26)
--- NOTE | 2019-06-19 10:06 | Progress Note ---
Subjective Date of service: 06/19/19 Principal diagnosis: Schizophrenia Subjective Comment: Subjective Date of service: 06/16/19 Principal diagnosis: Schizophrenia Subjective Comment: I interviewed the patient this morning. Medical records reviewed and patient's progress was discussed with unit staff. Nursing staff patient rested quietly until approximately 4 am. She was standing in her room reaching for something near her bed. This publications writer asker her if she was ok and patient smiled and said yes. She was awake sitting quietly in her room. She presents as sleeping 6 hours. During my interview with the patient this morning she was quite avoidant. she immediately turned her back and covered her head upon me walking into the room. She stayed this way throughout interview. She would not answer any questions today nor make any eye contact. Review of Symptoms: Constitutional: Negative for weight loss ENT: Negative for stridor Respiratory: Negative for cough or hemoptysis All other systems reviewed and are negative Mental Status Exam Appearance: Wearing appropriate clothing. In bed. Behavior: Avoidant, withdrawn Mood: Unable to assess Affect: restricted Thought Process: unable to assess Speech: Unable to assess Thought Process: Unable to assess Speech: Normal rate. Thought Content Harmfulness Unable to assess Hallucinations: Unable to assess Delusions: Unable to assess Consciousness: Unable to assess Cognition/Memory: Unable to assess Insight/Judgment: Limited. Diagnoses: Schizophrenia Treatment Plan Due to the psychiatric conditions and treatment listed in the Assessment and Plan - the patient requires continued hospitalization. Will continue inpatient treatment to allow for medication adjustment and monitoring. Will continue q15 min safety checks. Will encourage the use of environmental modifications and non-pharmacologic approaches for the management of behavioral and psychological symptoms. Will continue current psych medications Monitor for medication side effects. The patient will continue on medications for physical illnesses, and Hospitalist will closely monitor these Continue intensive physical and occupational therapies. Monitor patient's mood, sleep, appetite, and behavior closely. Encourage patient to participate in individual and group therapeutic sessions on the [place]. Will provide a safe and therapeutic environment for patient. Medications and Allergies Allergies Allergy/AdvReac Type Severity Reaction Status Date / Time No Known Allergies Allergy Verified 09/17/15 10:37 Home Medications Medication Instructions Recorded Confirmed Last Taken Type Valsartan [Diovan] 1 tab PO DAILY 06/14/19 06/17/19 Unknown History clonazePAM 0.5 mg PO QHS 06/14/19 06/17/19 Unknown History clonazePAM [KlonoPIN] 0.25 mg PO QAM 06/14/19 06/17/19 Unknown History risperiDONE [RisperDAL] 3 mg PO QHS 06/14/19 06/17/19 Unknown History traZODone [Desyrel] 50 mg PO QHS PRN 06/14/19 06/17/19 Unknown History Fenofibrate Nanocrystallized 48 mg pe PO DAILY 06/17/19 06/17/19 Unknown History [Fenofibrate] risperiDONE [RisperDAL] 1 mg PO DAILY 06/17/19 06/17/19 Unknown History Active Meds: Active Medications Clonazepam (Klonopin) 0.5 mg PO QHS [facility] Last Admin: 06/18/19 21:26 Dose: 0.5 mg Documented by: Clonazepam (Klonopin) 0.25 mg PO QAM [facility] Last Admin: 06/18/19 09:37 Dose: 0.25 mg Documented by: Haloperidol Lactate (Haldol) 5 mg IM Q6H PRN PRN Reason: Agitation Lorazepam (Ativan) 2 mg IM Q6H PRN PRN Reason: Agitation Melatonin (Melatonin) 5 mg PO QHS [facility] Last Admin: 06/18/19 21:26 Dose: 5 mg Documented by: Risperidone (Risperdal) 3 mg PO QHS [facility] Last Admin: 06/18/19 21:26 Dose: 3 mg Documented by: Trazodone HCl (Desyrel) 50 mg PO QHS [facility] Last Admin: 06/18/19 21:25 Dose: 50 mg Documented by: Trazodone HCl (Desyrel) 50 mg PO QHS PRN PRN Reason: insomnia Valsartan (Diovan) 160 mg PO DAILY [facility] Last Admin: 06/18/19 09:36 Dose: 160 mg Documented by: Results - Results Labs/Vitals: Laboratory Last Values WBC 5.2 K/mm3 (4.5-11.0) 06/15/19 05:52 RBC 3.87 M/mm3 (3.65-5.03) 06/15/19 05:52 Hgb 11.4 gm/dl (10.1-14.3) 06/15/19 05:52 Hct 33.7 % (30.3-42.9) 06/15/19 05:52 MCV 87 fl (79-97) 06/15/19 05:52 MCH 30 pg (28-32) 06/15/19 05:52 MCHC 34 % (30-34) 06/15/19 05:52 RDW 14.3 % (13.2-15.2) 06/15/19 05:52 Plt Count 220 K/mm3 (140-440) 06/15/19 05:52 Add Manual Diff Complete 06/15/19 05:52 Total Counted 100 06/15/19 05:52 Seg Neuts % (Manual) 68.0 % (40.0-70.0) 06/15/19 05:52 Band Neutrophils % 0 % 06/15/19 05:52 Lymphocytes % (Manual) 25.0 % (13.4-35.0) 06/15/19 05:52 Reactive Lymphs % (Man) 0 % 06/15/19 05:52 Monocytes % (Manual) 6.0 % (0.0-7.3) 06/15/19 05:52 Eosinophils % (Manual) 1.0 % (0.0-4.3) 06/15/19 05:52 Basophils % (Manual) 0 % (0.0-1.8) 06/15/19 05:52 Metamyelocytes % 0 % 06/15/19 05:52 Myelocytes % 0 % 06/15/19 05:52 Promyelocytes % 0 % 06/15/19 05:52 Blast Cells % 0 % 06/15/19 05:52 Nucleated RBC % Not Reportable 06/15/19 05:52 Seg Neutrophils # Man 3.5 K/mm3 (1.8-7.7) 06/15/19 05:52 Band Neutrophils # 0.0 K/mm3 06/15/19 05:52 Lymphocytes # (Manual) 1.3 K/mm3 (1.2-5.4) 06/15/19 05:52 Abs React Lymphs (Man) 0.0 K/mm3 06/15/19 05:52 Monocytes # (Manual) 0.3 K/mm3 (0.0-0.8) 06/15/19 05:52 Eosinophils # (Manual) 0.1 K/mm3 (0.0-0.4) 06/15/19 05:52 Basophils # (Manual) 0.0 K/mm3 (0.0-0.1) 06/15/19 05:52 Metamyelocytes # 0.0 K/mm3 06/15/19 05:52 Myelocytes # 0.0 K/mm3 06/15/19 05:52 Promyelocytes # 0.0 K/mm3 06/15/19 05:52 Blast Cells # 0.0 K/mm3 06/15/19 05:52 WBC Morphology Not Reportable 06/15/19 05:52 Hypersegmented Neuts Not Reportable 06/15/19 05:52 Hyposegmented Neuts Not Reportable 06/15/19 05:52 Hypogranular Neuts Not Reportable 06/15/19 05:52 Smudge Cells Not Reportable 06/15/19 05:52 Toxic Granulation Not Reportable 06/15/19 05:52 Toxic Vacuolation Not Reportable 06/15/19 05:52 Dohle Bodies Not Reportable 06/15/19 05:52 Pel[place] Anomaly Not Reportable 06/15/19 05:52 Do Rods Not Reportable 06/15/19 05:52 Platelet Estimate Cons 06/15/19 05:52 Clumped Platelets Not Reportable 06/15/19 05:52 Plt Clumps, EDTA Not Reportable 06/15/19 05:52 Large Platelets Few 06/15/19 05:52 Giant Platelets Not Reportable 06/15/19 05:52 Platelet Satelliting Not Reportable 06/15/19 05:52 Plt Morphology Comment Not Reportable 06/15/19 05:52 RBC Morphology Normal 06/15/19 05:52 Dimorphic RBCs Not Reportable 06/15/19 05:52 Polychromasia Not Reportable 06/15/19 05:52 Hypochromasia Not Reportable 06/15/19 05:52 Poikilocytosis Not Reportable 06/15/19 05:52 Anisocytosis Not Reportable 06/15/19 05:52 Microcytosis Not Reportable 06/15/19 05:52 Macrocytosis Not Reportable 06/15/19 05:52 Spherocytes Not Reportable 06/15/19 05:52 Pappenheimer Bodies Not Reportable 06/15/19 05:52 Sickle Cells Not Reportable 06/15/19 05:52 Target Cells Not Reportable 06/15/19 05:52 Tear Drop Cells Not Reportable 06/15/19 05:52 Ovalocytes Not Reportable 06/15/19 05:52 Helmet Cells Not Reportable 06/15/19 05:52 [place] Bodies Not Reportable 06/15/19 05:52 [place] Rings Not Reportable 06/15/19 05:52 [place] Cells Not Reportable 06/15/19 05:52 Bite Cells Not Reportable 06/15/19 05:52 Crenated Cell Not Reportable 06/15/19 05:52 Elliptocytes Not Reportable 06/15/19 05:52 Acanthocytes (Spur) Not Reportable 06/15/19 05:52 Rouleaux Not Reportable 06/15/19 05:52 Hemoglobin C Crystals Not Reportable 06/15/19 05:52 Schistocytes Not Reportable 06/15/19 05:52 Malaria parasites Not Reportable 06/15/19 05:52 [place]ink[place] Bodies Not Reportable 06/15/19 05:52 Hem Pathologist Commnt No 06/15/19 05:52 Sodium 142 mmol/L (137-145) 06/15/19 05:52 Potassium 3.9 mmol/L (3.6-5.0) 06/15/19 05:52 Chloride 107.8 mmol/L (98-107) H 06/15/19 05:52 Carbon Dioxide 20 mmol/L (22-30) L 06/15/19 05:52 Anion Gap 18 mmol/L 06/15/19 05:52 BUN 13 mg/dL (7-17) 06/15/19 05:52 Creatinine 0.7 mg/dL (0.7-1.2) 06/15/19 05:52 Estimated GFR > 60 ml/min 06/15/19 05:52 BUN/Creatinine Ratio 19 % 06/15/19 05:52 Glucose 97 mg/dL (65-100) 06/15/19 05:52 Hemoglobin A1c 5.6 % (4-6) 06/15/19 05:52 Calcium 9.3 mg/dL (8.4-10.2) 06/15/19 05:52 Total Bilirubin 0.30 mg/dL (0.1-1.2) 06/15/19 05:52 AST 26 units/L (5-40) 06/15/19 05:52 ALT 13 units/L (7-56) 06/15/19 05:52 Alkaline Phosphatase 57 units/L (35-129) 06/15/19 05:52 Total Protein 6.7 g/dL (6.3-8.2) 06/15/19 05:52 Albumin 3.8 g/dL (3.9-5) L 06/15/19 05:52 Albumin/Globulin Ratio 1.3 % 06/15/19 05:52 Triglycerides 75 mg/dL (2-149) 06/15/19 05:52 Cholesterol 153 mg/dL (50-199) 06/15/19 05:52 LDL Cholesterol Direct 76 mg/dL (50-130) 06/15/19 05:52 HDL Cholesterol 65 mg/dL (40-59) H 06/15/19 05:52 Cholesterol/HDL Ratio 2.35 % 06/15/19 05:52 Last Vital Signs Temp 98.0 F 06/18/19 20:00 Pulse 83 06/18/19 20:00 Resp 18 06/18/19 20:00 BP 189/91 06/18/19 20:00 Pulse Ox 99 06/18/19 20:00
[2019-06-19] MEDS: VALSARTAN 160MG TAB PO SCH (10:46)
[2019-06-19] MEDS: clonazePAM 0.5 MG TAB PO SCH ×2 (10:48→22:06)
[2019-06-19] MEDS: traZODone 50 MG TAB PO SCH (22:06)
[2019-06-19] MEDS: risperiDONE 3 MG TAB PO SCH (22:06)
[2019-06-19] MEDS: MELATONIN 5 MG TAB PO SCH (22:07)
[2019-06-20] MEDS: VALSARTAN 160MG TAB PO SCH (09:15)
[2019-06-20] MEDS: clonazePAM 0.5 MG TAB PO SCH ×2 (09:15→21:31)
--- NOTE | 2019-06-20 10:56 | Progress Note ---
Subjective Date of service: 06/20/19 Principal diagnosis: Schizophrenia Subjective Comment: Subjective Date of service: 06/16/19 Principal diagnosis: Schizophrenia Subjective Comment: I interviewed the patient this morning. Medical records reviewed and patient's progress was discussed with unit staff. Nursing staff states the patient is sitting with peers in the activity room. However she presents as totally isolated even around peers. She has no response to verbal interaction only staring at this process description writer. Patient does barely shake her head no when asked if she needs anything. During my interview with the patient this morning she was still quite avoidant. She is sitting in the dayroom away from others. She turns her head toward the wall upon seeing me walk toward her. She did not turn to make any eye contact or would not respond to any questioning. Review of Symptoms: Constitutional: Negative for weight loss ENT: Negative for stridor Respiratory: Negative for cough or hemoptysis All other systems reviewed and are negative Mental Status Exam Appearance: Wearing appropriate clothing. In dayroom. Behavior: Avoidant, withdrawn Mood: Unable to assess Affect: restricted Thought Process: unable to assess Speech: Unable to assess Thought Process: Unable to assess Speech: Normal rate. Thought Content Harmfulness Unable to assess Hallucinations: Unable to assess Delusions: Unable to assess Consciousness: Unable to assess Cognition/Memory: Unable to assess Insight/Judgment: Limited. Diagnoses: Schizophrenia Treatment Plan Due to the psychiatric conditions and treatment listed in the Assessment and Plan - the patient requires continued hospitalization. Will continue inpatient treatment to allow for medication adjustment and monitoring. Will continue q15 min safety checks. Will encourage the use of environmental modifications and non-pharmacologic approaches for the management of behavioral and psychological symptoms. Will continue current psych medications Monitor for medication side effects. The patient will continue on medications for physical illnesses, and Hospitalist will closely monitor these Continue intensive physical and occupational therapies. Monitor patient's mood, sleep, appetite, and behavior closely. Encourage patient to participate in individual and group therapeutic sessions on the [place]. Will provide a safe and therapeutic environment for patient. Medications and Allergies Allergies Allergy/AdvReac Type Severity Reaction Status Date / Time No Known Allergies Allergy Verified 09/17/15 10:37 Home Medications Medication Instructions Recorded Confirmed Last Taken Type Valsartan [Diovan] 1 tab PO DAILY 06/14/19 06/17/19 Unknown History clonazePAM 0.5 mg PO QHS 06/14/19 06/17/19 Unknown History clonazePAM [KlonoPIN] 0.25 mg PO QAM 06/14/19 06/17/19 Unknown History risperiDONE [RisperDAL] 3 mg PO QHS 06/14/19 06/17/19 Unknown History traZODone [Desyrel] 50 mg PO QHS PRN 06/14/19 06/17/19 Unknown History Fenofibrate Nanocrystallized 48 mg pe PO DAILY 06/17/19 06/17/19 Unknown History [Fenofibrate] risperiDONE [RisperDAL] 1 mg PO DAILY 06/17/19 06/17/19 Unknown History Active Meds: Active Medications Clonazepam (Klonopin) 0.5 mg PO QHS [facility] Last Admin: 06/19/19 22:06 Dose: 0.5 mg Documented by: Clonazepam (Klonopin) 0.25 mg PO QAM [facility] Last Admin: 06/20/19 09:15 Dose: 0.25 mg Documented by: Haloperidol Lactate (Haldol) 5 mg IM Q6H PRN PRN Reason: Agitation Lorazepam (Ativan) 2 mg IM Q6H PRN PRN Reason: Agitation Melatonin (Melatonin) 5 mg PO QHS [facility] Last Admin: 06/19/19 22:07 Dose: 5 mg Documented by: Risperidone (Risperdal) 3 mg PO QHS [facility] Last Admin: 06/19/19 22:06 Dose: 3 mg Documented by: Trazodone HCl (Desyrel) 50 mg PO QHS [facility] Last Admin: 06/19/19 22:06 Dose: 50 mg Documented by: Trazodone HCl (Desyrel) 50 mg PO QHS PRN PRN Reason: insomnia Valsartan (Diovan) 160 mg PO DAILY [facility] Last Admin: 06/20/19 09:15 Dose: 160 mg Documented by: Results - Results Labs/Vitals: Laboratory Last Values WBC 5.2 K/mm3 (4.5-11.0) 06/15/19 05:52 RBC 3.87 M/mm3 (3.65-5.03) 06/15/19 05:52 Hgb 11.4 gm/dl (10.1-14.3) 06/15/19 05:52 Hct 33.7 % (30.3-42.9) 06/15/19 05:52 MCV 87 fl (79-97) 06/15/19 05:52 MCH 30 pg (28-32) 06/15/19 05:52 MCHC 34 % (30-34) 06/15/19 05:52 RDW 14.3 % (13.2-15.2) 06/15/19 05:52 Plt Count 220 K/mm3 (140-440) 06/15/19 05:52 Add Manual Diff Complete 06/15/19 05:52 Total Counted 100 06/15/19 05:52 Seg Neuts % (Manual) 68.0 % (40.0-70.0) 06/15/19 05:52 Band Neutrophils % 0 % 06/15/19 05:52 Lymphocytes % (Manual) 25.0 % (13.4-35.0) 06/15/19 05:52 Reactive Lymphs % (Man) 0 % 06/15/19 05:52 Monocytes % (Manual) 6.0 % (0.0-7.3) 06/15/19 05:52 Eosinophils % (Manual) 1.0 % (0.0-4.3) 06/15/19 05:52 Basophils % (Manual) 0 % (0.0-1.8) 06/15/19 05:52 Metamyelocytes % 0 % 06/15/19 05:52 Myelocytes % 0 % 06/15/19 05:52 Promyelocytes % 0 % 06/15/19 05:52 Blast Cells % 0 % 06/15/19 05:52 Nucleated RBC % Not Reportable 06/15/19 05:52 Seg Neutrophils # Man 3.5 K/mm3 (1.8-7.7) 06/15/19 05:52 Band Neutrophils # 0.0 K/mm3 06/15/19 05:52 Lymphocytes # (Manual) 1.3 K/mm3 (1.2-5.4) 06/15/19 05:52 Abs React Lymphs (Man) 0.0 K/mm3 06/15/19 05:52 Monocytes # (Manual) 0.3 K/mm3 (0.0-0.8) 06/15/19 05:52 Eosinophils # (Manual) 0.1 K/mm3 (0.0-0.4) 06/15/19 05:52 Basophils # (Manual) 0.0 K/mm3 (0.0-0.1) 06/15/19 05:52 Metamyelocytes # 0.0 K/mm3 06/15/19 05:52 Myelocytes # 0.0 K/mm3 06/15/19 05:52 Promyelocytes # 0.0 K/mm3 06/15/19 05:52 Blast Cells # 0.0 K/mm3 06/15/19 05:52 WBC Morphology Not Reportable 06/15/19 05:52 Hypersegmented Neuts Not Reportable 06/15/19 05:52 Hyposegmented Neuts Not Reportable 06/15/19 05:52 Hypogranular Neuts Not Reportable 06/15/19 05:52 Smudge Cells Not Reportable 06/15/19 05:52 Toxic Granulation Not Reportable 06/15/19 05:52 Toxic Vacuolation Not Reportable 06/15/19 05:52 Dohle Bodies Not Reportable 06/15/19 05:52 Pelger-Huet Anomaly Not Reportable 06/15/19 05:52 Do Rods Not Reportable 06/15/19 05:52 Platelet Estimate Cons 06/15/19 05:52 Clumped Platelets Not Reportable 06/15/19 05:52 Plt Clumps, EDTA Not Reportable 06/15/19 05:52 Large Platelets Few 06/15/19 05:52 Giant Platelets Not Reportable 06/15/19 05:52 Platelet Satelliting Not Reportable 06/15/19 05:52 Plt Morphology Comment Not Reportable 06/15/19 05:52 RBC Morphology Normal 06/15/19 05:52 Dimorphic RBCs Not Reportable 06/15/19 05:52 Polychromasia Not Reportable 06/15/19 05:52 Hypochromasia Not Reportable 06/15/19 05:52 Poikilocytosis Not Reportable 06/15/19 05:52 Anisocytosis Not Reportable 06/15/19 05:52 Microcytosis Not Reportable 06/15/19 05:52 Macrocytosis Not Reportable 06/15/19 05:52 Spherocytes Not Reportable 06/15/19 05:52 Pappenheimer Bodies Not Reportable 06/15/19 05:52 Sickle Cells Not Reportable 06/15/19 05:52 Target Cells Not Reportable 06/15/19 05:52 Tear Drop Cells Not Reportable 06/15/19 05:52 Ovalocytes Not Reportable 06/15/19 05:52 Helmet Cells Not Reportable 06/15/19 05:52 Rios-[place] Bodies Not Reportable 06/15/19 05:52 [place] Rings Not Reportable 06/15/19 05:52 Sosa Cells Not Reportable 06/15/19 05:52 Bite Cells Not Reportable 06/15/19 05:52 Crenated Cell Not Reportable 06/15/19 05:52 Elliptocytes Not Reportable 06/15/19 05:52 Acanthocytes (Spur) Not Reportable 06/15/19 05:52 Rouleaux Not Reportable 06/15/19 05:52 Hemoglobin C Crystals Not Reportable 06/15/19 05:52 Schistocytes Not Reportable 06/15/19 05:52 Malaria parasites Not Reportable 06/15/19 05:52 Yinka Bodies Not Reportable 06/15/19 05:52 Hem Pathologist Commnt No 06/15/19 05:52 Sodium 142 mmol/L (137-145) 06/15/19 05:52 Potassium 3.9 mmol/L (3.6-5.0) 06/15/19 05:52 Chloride 107.8 mmol/L (98-107) H 06/15/19 05:52 Carbon Dioxide 20 mmol/L (22-30) L 06/15/19 05:52 Anion Gap 18 mmol/L 06/15/19 05:52 BUN 13 mg/dL (7-17) 06/15/19 05:52 Creatinine 0.7 mg/dL (0.7-1.2) 06/15/19 05:52 Estimated GFR > 60 ml/min 06/15/19 05:52 BUN/Creatinine Ratio 19 % 06/15/19 05:52 Glucose 97 mg/dL (65-100) 06/15/19 05:52 Hemoglobin A1c 5.6 % (4-6) 06/15/19 05:52 Calcium 9.3 mg/dL (8.4-10.2) 06/15/19 05:52 Total Bilirubin 0.30 mg/dL (0.1-1.2) 06/15/19 05:52 AST 26 units/L (5-40) 06/15/19 05:52 ALT 13 units/L (7-56) 06/15/19 05:52 Alkaline Phosphatase 57 units/L (35-129) 06/15/19 05:52 Total Protein 6.7 g/dL (6.3-8.2) 06/15/19 05:52 Albumin 3.8 g/dL (3.9-5) L 06/15/19 05:52 Albumin/Globulin Ratio 1.3 % 06/15/19 05:52 Triglycerides 75 mg/dL (2-149) 06/15/19 05:52 Cholesterol 153 mg/dL (50-199) 06/15/19 05:52 LDL Cholesterol Direct 76 mg/dL (50-130) 06/15/19 05:52 HDL Cholesterol 65 mg/dL (40-59) H 06/15/19 05:52 Cholesterol/HDL Ratio 2.35 % 06/15/19 05:52 Last Vital Signs Temp 98.0 F 06/19/19 20:50 Pulse 78 06/20/19 09:15 Resp 18 06/19/19 20:50 BP 181/80 06/20/19 09:15 Pulse Ox 99 06/19/19 20:50
[2019-06-20] MEDS: traZODone 50 MG TAB PO SCH (21:31)
[2019-06-20] MEDS: MELATONIN 5 MG TAB PO SCH (21:31)
[2019-06-20] MEDS: risperiDONE 3 MG TAB PO SCH (21:31)
--- NOTE | 2019-06-21 09:24 | Progress Note ---
Subjective Date of service: 06/21/19 Principal diagnosis: Schizophrenia Subjective Comment: Subjective Date of service: 06/16/19 Principal diagnosis: Schizophrenia Subjective Comment: I interviewed the patient this morning. Medical records reviewed and patient's progress was discussed with unit staff. Nursing staff states the patient is alert and oriented to person, alisa and cooperative, denies SI/HI, denies A/V/H, does not interact with peers, minimal interaction with staff. During my interview with the patient this morning the patient was more social than before. She's still in bed. Awake. Mrs. Ibarra states she slept good, and denies hallucinations of any kind. She also says her appetite is good; "breakfast if good, not lunch and dinner." She also says her mood was "good." When asked about suicidal or hamful thoughts, Mrs. Ibarra replied, "no ingles." Review of Symptoms: Constitutional: Negative for weight loss ENT: Negative for stridor Respiratory: Negative for cough or hemoptysis All other systems reviewed and are negative Mental Status Exam Appearance: Wearing appropriate clothing. In bed Behavior: Calm, more cooperative Mood: Good Affect: restricted Thought Process: Goal directed Speech: normal rate and tone Thought Content Harmfulness: Replied "no ingles" Hallucinations: Denies Delusions: Denies Consciousness: Alert Cognition/Memory: fair Insight/Judgment: Limited. Diagnoses: Schizophrenia Treatment Plan Due to the psychiatric conditions and treatment listed in the Assessment and Plan - the patient requires continued hospitalization. Will continue inpatient treatment to allow for medication adjustment and monitoring. Will continue q15 min safety checks. Will encourage the use of environmental modifications and non-pharmacologic approaches for the management of behavioral and psychological symptoms. Will continue current psych medications Monitor for medication side effects. The patient will continue on medications for physical illnesses, and Hospitalist will closely monitor these No medication changes at this time Continue intensive physical and occupational therapies. Monitor patient's mood, sleep, appetite, and behavior closely. Encourage patient to participate in individual and group therapeutic sessions on the [place]. Will provide a safe and therapeutic environment for patient. Medications and Allergies Allergies Allergy/AdvReac Type Severity Reaction Status Date / Time No Known Allergies Allergy Verified 09/17/15 10:37 Home Medications Medication Instructions Recorded Confirmed Last Taken Type Valsartan [Diovan] 1 tab PO DAILY 06/14/19 06/17/19 Unknown History clonazePAM 0.5 mg PO QHS 06/14/19 06/17/19 Unknown History clonazePAM [KlonoPIN] 0.25 mg PO QAM 06/14/19 06/17/19 Unknown History risperiDONE [RisperDAL] 3 mg PO QHS 06/14/19 06/17/19 Unknown History traZODone [Desyrel] 50 mg PO QHS PRN 06/14/19 06/17/19 Unknown History Fenofibrate Nanocrystallized 48 mg pe PO DAILY 06/17/19 06/17/19 Unknown History [Fenofibrate] risperiDONE [RisperDAL] 1 mg PO DAILY 06/17/19 06/17/19 Unknown History Active Meds: Active Medications Clonazepam (Klonopin) 0.5 mg PO QHS [facility] Last Admin: 06/20/19 21:31 Dose: 0.5 mg Documented by: Clonazepam (Klonopin) 0.25 mg PO QAM [facility] Last Admin: 06/20/19 09:15 Dose: 0.25 mg Documented by: Haloperidol Lactate (Haldol) 5 mg IM Q6H PRN PRN Reason: Agitation Lorazepam (Ativan) 2 mg IM Q6H PRN PRN Reason: Agitation Melatonin (Melatonin) 5 mg PO QHS [facility] Last Admin: 06/20/19 21:31 Dose: 5 mg Documented by: Risperidone (Risperdal) 3 mg PO QHS [facility] Last Admin: 06/20/19 21:31 Dose: 3 mg Documented by: Trazodone HCl (Desyrel) 50 mg PO QHS [facility] Last Admin: 06/20/19 21:31 Dose: 50 mg Documented by: Trazodone HCl (Desyrel) 50 mg PO QHS PRN PRN Reason: insomnia Valsartan (Diovan) 160 mg PO DAILY [facility] Last Admin: 06/20/19 09:15 Dose: 160 mg Documented by: Results - Results Labs/Vitals: Laboratory Last Values WBC 5.2 K/mm3 (4.5-11.0) 06/15/19 05:52 RBC 3.87 M/mm3 (3.65-5.03) 06/15/19 05:52 Hgb 11.4 gm/dl (10.1-14.3) 06/15/19 05:52 Hct 33.7 % (30.3-42.9) 06/15/19 05:52 MCV 87 fl (79-97) 06/15/19 05:52 MCH 30 pg (28-32) 06/15/19 05:52 MCHC 34 % (30-34) 06/15/19 05:52 RDW 14.3 % (13.2-15.2) 06/15/19 05:52 Plt Count 220 K/mm3 (140-440) 06/15/19 05:52 Add Manual Diff Complete 06/15/19 05:52 Total Counted 100 06/15/19 05:52 Seg Neuts % (Manual) 68.0 % (40.0-70.0) 06/15/19 05:52 Band Neutrophils % 0 % 06/15/19 05:52 Lymphocytes % (Manual) 25.0 % (13.4-35.0) 06/15/19 05:52 Reactive Lymphs % (Man) 0 % 06/15/19 05:52 Monocytes % (Manual) 6.0 % (0.0-7.3) 06/15/19 05:52 Eosinophils % (Manual) 1.0 % (0.0-4.3) 06/15/19 05:52 Basophils % (Manual) 0 % (0.0-1.8) 06/15/19 05:52 Metamyelocytes % 0 % 06/15/19 05:52 Myelocytes % 0 % 06/15/19 05:52 Promyelocytes % 0 % 06/15/19 05:52 Blast Cells % 0 % 06/15/19 05:52 Nucleated RBC % Not Reportable 06/15/19 05:52 Seg Neutrophils # Man 3.5 K/mm3 (1.8-7.7) 06/15/19 05:52 Band Neutrophils # 0.0 K/mm3 06/15/19 05:52 Lymphocytes # (Manual) 1.3 K/mm3 (1.2-5.4) 06/15/19 05:52 Abs React Lymphs (Man) 0.0 K/mm3 06/15/19 05:52 Monocytes # (Manual) 0.3 K/mm3 (0.0-0.8) 06/15/19 05:52 Eosinophils # (Manual) 0.1 K/mm3 (0.0-0.4) 06/15/19 05:52 Basophils # (Manual) 0.0 K/mm3 (0.0-0.1) 06/15/19 05:52 Metamyelocytes # 0.0 K/mm3 06/15/19 05:52 Myelocytes # 0.0 K/mm3 06/15/19 05:52 Promyelocytes # 0.0 K/mm3 06/15/19 05:52 Blast Cells # 0.0 K/mm3 06/15/19 05:52 WBC Morphology Not Reportable 06/15/19 05:52 Hypersegmented Neuts Not Reportable 06/15/19 05:52 Hyposegmented Neuts Not Reportable 06/15/19 05:52 Hypogranular Neuts Not Reportable 06/15/19 05:52 Smudge Cells Not Reportable 06/15/19 05:52 Toxic Granulation Not Reportable 06/15/19 05:52 Toxic Vacuolation Not Reportable 06/15/19 05:52 Dohle Bodies Not Reportable 06/15/19 05:52 Pelger-Huet Anomaly Not Reportable 06/15/19 05:52 Do Rods Not Reportable 06/15/19 05:52 Platelet Estimate Cons 06/15/19 05:52 Clumped Platelets Not Reportable 06/15/19 05:52 Plt Clumps, EDTA Not Reportable 06/15/19 05:52 Large Platelets Few 06/15/19 05:52 Giant Platelets Not Reportable 06/15/19 05:52 Platelet Satelliting Not Reportable 06/15/19 05:52 Plt Morphology Comment Not Reportable 06/15/19 05:52 RBC Morphology Normal 06/15/19 05:52 Dimorphic RBCs Not Reportable 06/15/19 05:52 Polychromasia Not Reportable 06/15/19 05:52 Hypochromasia Not Reportable 06/15/19 05:52 Poikilocytosis Not Reportable 06/15/19 05:52 Anisocytosis Not Reportable 06/15/19 05:52 Microcytosis Not Reportable 06/15/19 05:52 Macrocytosis Not Reportable 06/15/19 05:52 Spherocytes Not Reportable 06/15/19 05:52 Pappenheimer Bodies Not Reportable 06/15/19 05:52 Sickle Cells Not Reportable 06/15/19 05:52 Target Cells Not Reportable 06/15/19 05:52 Tear Drop Cells Not Reportable 06/15/19 05:52 Ovalocytes Not Reportable 06/15/19 05:52 Helmet Cells Not Reportable 06/15/19 05:52 Rios-Odem Bodies Not Reportable 06/15/19 05:52 [place] Rings Not Reportable 06/15/19 05:52 Sosa Cells Not Reportable 06/15/19 05:52 Bite Cells Not Reportable 06/15/19 05:52 Crenated Cell Not Reportable 06/15/19 05:52 Elliptocytes Not Reportable 06/15/19 05:52 Acanthocytes (Spur) Not Reportable 06/15/19 05:52 Rouleaux Not Reportable 06/15/19 05:52 Hemoglobin C Crystals Not Reportable 06/15/19 05:52 Schistocytes Not Reportable 06/15/19 05:52 Malaria parasites Not Reportable 06/15/19 05:52 Yinka Bodies Not Reportable 06/15/19 05:52 Hem Pathologist Commnt No 06/15/19 05:52 Sodium 142 mmol/L (137-145) 06/15/19 05:52 Potassium 3.9 mmol/L (3.6-5.0) 06/15/19 05:52 Chloride 107.8 mmol/L (98-107) H 06/15/19 05:52 Carbon Dioxide 20 mmol/L (22-30) L 06/15/19 05:52 Anion Gap 18 mmol/L 06/15/19 05:52 BUN 13 mg/dL (7-17) 06/15/19 05:52 Creatinine 0.7 mg/dL (0.7-1.2) 06/15/19 05:52 Estimated GFR > 60 ml/min 06/15/19 05:52 BUN/Creatinine Ratio 19 % 06/15/19 05:52 Glucose 97 mg/dL (65-100) 06/15/19 05:52 Hemoglobin A1c 5.6 % (4-6) 06/15/19 05:52 Calcium 9.3 mg/dL (8.4-10.2) 06/15/19 05:52 Total Bilirubin 0.30 mg/dL (0.1-1.2) 06/15/19 05:52 AST 26 units/L (5-40) 06/15/19 05:52 ALT 13 units/L (7-56) 06/15/19 05:52 Alkaline Phosphatase 57 units/L (35-129) 06/15/19 05:52 Total Protein 6.7 g/dL (6.3-8.2) 06/15/19 05:52 Albumin 3.8 g/dL (3.9-5) L 06/15/19 05:52 Albumin/Globulin Ratio 1.3 % 06/15/19 05:52 Triglycerides 75 mg/dL (2-149) 06/15/19 05:52 Cholesterol 153 mg/dL (50-199) 06/15/19 05:52 LDL Cholesterol Direct 76 mg/dL (50-130) 06/15/19 05:52 HDL Cholesterol 65 mg/dL (40-59) H 06/15/19 05:52 Cholesterol/HDL Ratio 2.35 % 06/15/19 05:52 Last Vital Signs Temp 98.1 F 06/20/19 22:00 Pulse 87 06/20/19 22:00 Resp 18 06/20/19 22:00 BP 185/82 06/20/19 22:00 Pulse Ox 100 06/20/19 22:00
[2019-06-21] MEDS: VALSARTAN 160MG TAB PO SCH (10:35)
[2019-06-21] MEDS: clonazePAM 0.5 MG TAB PO SCH ×2 (10:35→22:35)
[2019-06-21] MEDS: risperiDONE 3 MG TAB PO SCH (22:35)
[2019-06-21] MEDS: MELATONIN 5 MG TAB PO SCH (22:35)
[2019-06-21] MEDS: traZODone 50 MG TAB PO SCH (22:35)
--- NOTE | 2019-06-22 09:38 | Progress Note ---
Subjective Date of service: 06/22/19 Principal diagnosis: Schizophrenia Subjective Comment: Subjective Date of service: 06/16/19 Principal diagnosis: Schizophrenia Subjective Comment: I interviewed the patient this morning. Medical records reviewed and patient's progress was discussed with unit staff. Nursing staff states the Pt observed in the activity room isolative and withdrawn with no peer interaction. During my interview with the patient this morning the patient was avoidant of me upon me entering the room. She was lying in bed awake. Uncooperative. She immediately turned her back and placed cover over her head. When I proceeded to go to the other side of bed and communicate with her, she again turned the other direction. Review of Symptoms: Constitutional: Negative for weight loss ENT: Negative for stridor Respiratory: Negative for cough or hemoptysis All other systems reviewed and are negative Mental Status Exam Appearance: Wearing appropriate clothing. In bed Behavior: Uncooperative. No eye contact. Mood: unable to assess Affect: restricted Thought Process: Unable to assess Speech: normal rate and tone Thought Content Harmfulness: unable to assess Hallucinations: unable to assess Delusions: unable to assess Consciousness: unable to assess Cognition/Memory: unable to assess Insight/Judgment: Limited. Diagnoses: Schizophrenia Treatment Plan Due to the psychiatric conditions and treatment listed in the Assessment and Plan - the patient requires continued hospitalization. Will continue inpatient treatment to allow for medication adjustment and monitoring. Will continue q15 min safety checks. Will encourage the use of environmental modifications and non-pharmacologic approaches for the management of behavioral and psychological symptoms. Will continue current psych medications Monitor for medication side effects. The patient will continue on medications for physical illnesses, and Hospitalist will closely monitor these No medication changes at this time Continue intensive physical and occupational therapies. Monitor patient's mood, sleep, appetite, and behavior closely. Encourage patient to participate in individual and group therapeutic sessions on the [place]. Will provide a safe and therapeutic environment for patient. Plan to discharge home in 2 days Medications and Allergies Allergies Allergy/AdvReac Type Severity Reaction Status Date / Time No Known Allergies Allergy Verified 09/17/15 10:37 Home Medications Medication Instructions Recorded Confirmed Last Taken Type Valsartan [Diovan] 1 tab PO DAILY 06/14/19 06/17/19 Unknown History clonazePAM 0.5 mg PO QHS 06/14/19 06/17/19 Unknown History clonazePAM [KlonoPIN] 0.25 mg PO QAM 06/14/19 06/17/19 Unknown History risperiDONE [RisperDAL] 3 mg PO QHS 06/14/19 06/17/19 Unknown History traZODone [Desyrel] 50 mg PO QHS PRN 06/14/19 06/17/19 Unknown History Fenofibrate Nanocrystallized 48 mg pe PO DAILY 06/17/19 06/17/19 Unknown History [Fenofibrate] risperiDONE [RisperDAL] 1 mg PO DAILY 06/17/19 06/17/19 Unknown History Active Meds: Active Medications Clonazepam (Klonopin) 0.5 mg PO QHS [facility] Last Admin: 06/21/19 22:35 Dose: 0.5 mg Documented by: Clonazepam (Klonopin) 0.25 mg PO [facility] Last Admin: 06/21/19 10:35 Dose: 0.25 mg Documented by: Haloperidol Lactate (Haldol) 5 mg IM Q6H PRN PRN Reason: Agitation Lorazepam (Ativan) 2 mg IM Q6H PRN PRN Reason: Agitation Melatonin (Melatonin) 5 mg PO QHS [facility] Last Admin: 06/21/19 22:35 Dose: 5 mg Documented by: Risperidone (Risperdal) 3 mg PO QHS [facility] Last Admin: 06/21/19 22:35 Dose: 3 mg Documented by: Trazodone HCl (Desyrel) 50 mg PO QHS [facility] Last Admin: 06/21/19 22:35 Dose: 50 mg Documented by: Trazodone HCl (Desyrel) 50 mg PO QHS PRN PRN Reason: insomnia Valsartan (Diovan) 160 mg PO DAILY [facility] Last Admin: 06/21/19 10:35 Dose: 160 mg Documented by: Results - Results Labs/Vitals: Laboratory Last Values WBC 5.2 K/mm3 (4.5-11.0) 06/15/19 05:52 RBC 3.87 M/mm3 (3.65-5.03) 06/15/19 05:52 Hgb 11.4 gm/dl (10.1-14.3) 06/15/19 05:52 Hct 33.7 % (30.3-42.9) 06/15/19 05:52 MCV 87 fl (79-97) 06/15/19 05:52 MCH 30 pg (28-32) 06/15/19 05:52 MCHC 34 % (30-34) 06/15/19 05:52 RDW 14.3 % (13.2-15.2) 06/15/19 05:52 Plt Count 220 K/mm3 (140-440) 06/15/19 05:52 Add Manual Diff Complete 06/15/19 05:52 Total Counted 100 06/15/19 05:52 Seg Neuts % (Manual) 68.0 % (40.0-70.0) 06/15/19 05:52 Band Neutrophils % 0 % 06/15/19 05:52 Lymphocytes % (Manual) 25.0 % (13.4-35.0) 06/15/19 05:52 Reactive Lymphs % (Man) 0 % 06/15/19 05:52 Monocytes % (Manual) 6.0 % (0.0-7.3) 06/15/19 05:52 Eosinophils % (Manual) 1.0 % (0.0-4.3) 06/15/19 05:52 Basophils % (Manual) 0 % (0.0-1.8) 06/15/19 05:52 Metamyelocytes % 0 % 06/15/19 05:52 Myelocytes % 0 % 06/15/19 05:52 Promyelocytes % 0 % 06/15/19 05:52 Blast Cells % 0 % 06/15/19 05:52 Nucleated RBC % Not Reportable 06/15/19 05:52 Seg Neutrophils # Man 3.5 K/mm3 (1.8-7.7) 06/15/19 05:52 Band Neutrophils # 0.0 K/mm3 06/15/19 05:52 Lymphocytes # (Manual) 1.3 K/mm3 (1.2-5.4) 06/15/19 05:52 Abs React Lymphs (Man) 0.0 K/mm3 06/15/19 05:52 Monocytes # (Manual) 0.3 K/mm3 (0.0-0.8) 06/15/19 05:52 Eosinophils # (Manual) 0.1 K/mm3 (0.0-0.4) 06/15/19 05:52 Basophils # (Manual) 0.0 K/mm3 (0.0-0.1) 06/15/19 05:52 Metamyelocytes # 0.0 K/mm3 06/15/19 05:52 Myelocytes # 0.0 K/mm3 06/15/19 05:52 Promyelocytes # 0.0 K/mm3 06/15/19 05:52 Blast Cells # 0.0 K/mm3 06/15/19 05:52 WBC Morphology Not Reportable 06/15/19 05:52 Hypersegmented Neuts Not Reportable 06/15/19 05:52 Hyposegmented Neuts Not Reportable 06/15/19 05:52 Hypogranular Neuts Not Reportable 06/15/19 05:52 Smudge Cells Not Reportable 06/15/19 05:52 Toxic Granulation Not Reportable 06/15/19 05:52 Toxic Vacuolation Not Reportable 06/15/19 05:52 Dohle Bodies Not Reportable 06/15/19 05:52 Pelger-Huet Anomaly Not Reportable 06/15/19 05:52 Do Rods Not Reportable 06/15/19 05:52 Platelet Estimate Cons 06/15/19 05:52 Clumped Platelets Not Reportable 06/15/19 05:52 Plt Clumps, EDTA Not Reportable 06/15/19 05:52 Large Platelets Few 06/15/19 05:52 Giant Platelets Not Reportable 06/15/19 05:52 Platelet Satelliting Not Reportable 06/15/19 05:52 Plt Morphology Comment Not Reportable 06/15/19 05:52 RBC Morphology Normal 06/15/19 05:52 Dimorphic RBCs Not Reportable 06/15/19 05:52 Polychromasia Not Reportable 06/15/19 05:52 Hypochromasia Not Reportable 06/15/19 05:52 Poikilocytosis Not Reportable 06/15/19 05:52 Anisocytosis Not Reportable 06/15/19 05:52 Microcytosis Not Reportable 06/15/19 05:52 Macrocytosis Not Reportable 06/15/19 05:52 Spherocytes Not Reportable 06/15/19 05:52 Pappenheimer Bodies Not Reportable 06/15/19 05:52 Sickle Cells Not Reportable 06/15/19 05:52 Target Cells Not Reportable 06/15/19 05:52 Tear Drop Cells Not Reportable 06/15/19 05:52 Ovalocytes Not Reportable 06/15/19 05:52 Helmet Cells Not Reportable 06/15/19 05:52 [place] Bodies Not Reportable 06/15/19 05:52 [place] Rings Not Reportable 06/15/19 05:52 [place]osa Cells Not Reportable 06/15/19 05:52 Bite Cells Not Reportable 06/15/19 05:52 Crenated Cell Not Reportable 06/15/19 05:52 Elliptocytes Not Reportable 06/15/19 05:52 Acanthocytes (Spur) Not Reportable 06/15/19 05:52 Rouleaux Not Reportable 06/15/19 05:52 Hemoglobin C Crystals Not Reportable 06/15/19 05:52 Schistocytes Not Reportable 06/15/19 05:52 Malaria parasites Not Reportable 06/15/19 05:52 Yinka Bodies Not Reportable 06/15/19 05:52 Hem Pathologist Commnt No 06/15/19 05:52 Sodium 142 mmol/L (137-145) 06/15/19 05:52 Potassium 3.9 mmol/L (3.6-5.0) 06/15/19 05:52 Chloride 107.8 mmol/L (98-107) H 06/15/19 05:52 Carbon Dioxide 20 mmol/L (22-30) L 06/15/19 05:52 Anion Gap 18 mmol/L 06/15/19 05:52 BUN 13 mg/dL (7-17) 06/15/19 05:52 Creatinine 0.7 mg/dL (0.7-1.2) 06/15/19 05:52 Estimated GFR > 60 ml/min 06/15/19 05:52 BUN/Creatinine Ratio 19 % 06/15/19 05:52 Glucose 97 mg/dL (65-100) 06/15/19 05:52 Hemoglobin A1c 5.6 % (4-6) 06/15/19 05:52 Calcium 9.3 mg/dL (8.4-10.2) 06/15/19 05:52 Total Bilirubin 0.30 mg/dL (0.1-1.2) 06/15/19 05:52 AST 26 units/L (5-40) 06/15/19 05:52 ALT 13 units/L (7-56) 06/15/19 05:52 Alkaline Phosphatase 57 units/L (35-129) 06/15/19 05:52 Total Protein 6.7 g/dL (6.3-8.2) 06/15/19 05:52 Albumin 3.8 g/dL (3.9-5) L 06/15/19 05:52 Albumin/Globulin Ratio 1.3 % 06/15/19 05:52 Triglycerides 75 mg/dL (2-149) 06/15/19 05:52 Cholesterol 153 mg/dL (50-199) 06/15/19 05:52 LDL Cholesterol Direct 76 mg/dL (50-130) 06/15/19 05:52 HDL Cholesterol 65 mg/dL (40-59) H 06/15/19 05:52 Cholesterol/HDL Ratio 2.35 % 06/15/19 05:52 Last Vital Signs Temp 98.1 F 06/21/19 22:00 Pulse 78 06/21/19 22:00 Resp 18 06/21/19 22:00 BP 167/71 06/21/19 22:00 Pulse Ox 99 06/21/19 22:00
[2019-06-22] MEDS: VALSARTAN 160MG TAB PO SCH (18:48)
[2019-06-22] MEDS: clonazePAM 0.5 MG TAB PO SCH ×2 (18:48→21:11)
[2019-06-22] MEDS: risperiDONE 3 MG TAB PO SCH (21:11)
[2019-06-22] MEDS: traZODone 50 MG TAB PO SCH (21:11)
[2019-06-22] MEDS: MELATONIN 5 MG TAB PO SCH (21:11)
--- NOTE | 2019-06-23 08:36 | Progress Note ---
Subjective Date of service: 06/23/19 Principal diagnosis: Schizophrenia Subjective Comment: Subjective Date of service: 06/16/19 Principal diagnosis: Schizophrenia Subjective Comment: I interviewed the patient this morning. Medical records reviewed and patient's progress was discussed with unit staff. Nursing staff states the patient is alert and oriented x2, withdrawn to self, no interaction with peers, talks to herself, calm and cooperative, able to make needs known, medication compliant, good appetite,denies SI/HI, denies A/V/H, no behavioral issues Interview attempted this morning. The patient turned her back and pulled cover over her head. When asked how was she feeling, the patient replied in [place] with an irritable tone. Review of Symptoms: Unable to get any information from the patient Mental Status Exam Appearance: Wearing appropriate clothing. In bed Behavior: Uncooperative. No eye contact. Avoidant. Mood: irritable in tone Affect: restricted Thought Process: Unable to assess Speech: normal rate and tone Thought Content Harmfulness: unable to assess Hallucinations: unable to assess Delusions: unable to assess Consciousness: unable to assess Cognition/Memory: unable to assess Insight/Judgment: Limited. Diagnoses: Schizophrenia Treatment Plan Due to the psychiatric conditions and treatment listed in the Assessment and Plan - the patient requires continued hospitalization. Will continue inpatient treatment to allow for medication adjustment and monitoring. Will continue q15 min safety checks. Will encourage the use of environmental modifications and non-pharmacologic approaches for the management of behavioral and psychological symptoms. Will continue current psych medications Monitor for medication side effects. The patient will continue on medications for physical illnesses, and Hospitalist will closely monitor these No medication changes at this time Continue intensive physical and occupational therapies. Monitor patient's mood, sleep, appetite, and behavior closely. Encourage patient to participate in individual and group therapeutic sessions on the [place]. Will provide a safe and therapeutic environment for patient. Plan to discharge home in 1 days Medications and Allergies Allergies Allergy/AdvReac Type Severity Reaction Status Date / Time No Known Allergies Allergy Verified 09/17/15 10:37 Home Medications Medication Instructions Recorded Confirmed Last Taken Type Valsartan [Diovan] 1 tab PO DAILY 06/14/19 06/17/19 Unknown History clonazePAM 0.5 mg PO QHS 06/14/19 06/17/19 Unknown History clonazePAM [KlonoPIN] 0.25 mg PO QAM 06/14/19 06/17/19 Unknown History risperiDONE [RisperDAL] 3 mg PO QHS 06/14/19 06/17/19 Unknown History traZODone [Desyrel] 50 mg PO QHS PRN 06/14/19 06/17/19 Unknown History Fenofibrate Nanocrystallized 48 mg pe PO DAILY 06/17/19 06/17/19 Unknown History [Fenofibrate] risperiDONE [RisperDAL] 1 mg PO DAILY 06/17/19 06/17/19 Unknown History Active Meds: Active Medications Clonazepam (Klonopin) 0.5 mg PO QHS [facility] Last Admin: 06/22/19 21:11 Dose: 0.5 mg Documented by: Clonazepam (Klonopin) 0.25 mg PO [facility] Last Admin: 06/22/19 18:48 Dose: Not Given Documented by: Haloperidol Lactate (Haldol) 5 mg IM Q6H PRN PRN Reason: Agitation Lorazepam (Ativan) 2 mg IM Q6H PRN PRN Reason: Agitation Melatonin (Melatonin) 5 mg PO QHS [facility] Last Admin: 06/22/19 21:11 Dose: 5 mg Documented by: Risperidone (Risperdal) 3 mg PO QHS [facility] Last Admin: 06/22/19 21:11 Dose: 3 mg Documented by: Trazodone HCl (Desyrel) 50 mg PO QHS [facility] Last Admin: 06/22/19 21:11 Dose: 50 mg Documented by: Trazodone HCl (Desyrel) 50 mg PO QHS PRN PRN Reason: insomnia Valsartan (Diovan) 160 mg PO DAILY [facility] Last Admin: 06/22/19 18:48 Dose: Not Given Documented by: Results - Results Labs/Vitals: Laboratory Last Values WBC 5.2 K/mm3 (4.5-11.0) 06/15/19 05:52 RBC 3.87 M/mm3 (3.65-5.03) 06/15/19 05:52 Hgb 11.4 gm/dl (10.1-14.3) 06/15/19 05:52 Hct 33.7 % (30.3-42.9) 06/15/19 05:52 MCV 87 fl (79-97) 06/15/19 05:52 MCH 30 pg (28-32) 06/15/19 05:52 MCHC 34 % (30-34) 06/15/19 05:52 RDW 14.3 % (13.2-15.2) 06/15/19 05:52 Plt Count 220 K/mm3 (140-440) 06/15/19 05:52 Add Manual Diff Complete 06/15/19 05:52 Total Counted 100 06/15/19 05:52 Seg Neuts % (Manual) 68.0 % (40.0-70.0) 06/15/19 05:52 Band Neutrophils % 0 % 06/15/19 05:52 Lymphocytes % (Manual) 25.0 % (13.4-35.0) 06/15/19 05:52 Reactive Lymphs % (Man) 0 % 06/15/19 05:52 Monocytes % (Manual) 6.0 % (0.0-7.3) 06/15/19 05:52 Eosinophils % (Manual) 1.0 % (0.0-4.3) 06/15/19 05:52 Basophils % (Manual) 0 % (0.0-1.8) 06/15/19 05:52 Metamyelocytes % 0 % 06/15/19 05:52 Myelocytes % 0 % 06/15/19 05:52 Promyelocytes % 0 % 06/15/19 05:52 Blast Cells % 0 % 06/15/19 05:52 Nucleated RBC % Not Reportable 06/15/19 05:52 Seg Neutrophils # Man 3.5 K/mm3 (1.8-7.7) 06/15/19 05:52 Band Neutrophils # 0.0 K/mm3 06/15/19 05:52 Lymphocytes # (Manual) 1.3 K/mm3 (1.2-5.4) 06/15/19 05:52 Abs React Lymphs (Man) 0.0 K/mm3 06/15/19 05:52 Monocytes # (Manual) 0.3 K/mm3 (0.0-0.8) 06/15/19 05:52 Eosinophils # (Manual) 0.1 K/mm3 (0.0-0.4) 06/15/19 05:52 Basophils # (Manual) 0.0 K/mm3 (0.0-0.1) 06/15/19 05:52 Metamyelocytes # 0.0 K/mm3 06/15/19 05:52 Myelocytes # 0.0 K/mm3 06/15/19 05:52 Promyelocytes # 0.0 K/mm3 06/15/19 05:52 Blast Cells # 0.0 K/mm3 06/15/19 05:52 WBC Morphology Not Reportable 06/15/19 05:52 Hypersegmented Neuts Not Reportable 06/15/19 05:52 Hyposegmented Neuts Not Reportable 06/15/19 05:52 Hypogranular Neuts Not Reportable 06/15/19 05:52 Smudge Cells Not Reportable 06/15/19 05:52 Toxic Granulation Not Reportable 06/15/19 05:52 Toxic Vacuolation Not Reportable 06/15/19 05:52 Dohle Bodies Not Reportable 06/15/19 05:52 Pelger-Huet Anomaly Not Reportable 06/15/19 05:52 Do Rods Not Reportable 06/15/19 05:52 Platelet Estimate Cons 06/15/19 05:52 Clumped Platelets Not Reportable 06/15/19 05:52 Plt Clumps, EDTA Not Reportable 06/15/19 05:52 Large Platelets Few 06/15/19 05:52 Giant Platelets Not Reportable 06/15/19 05:52 Platelet Satelliting Not Reportable 06/15/19 05:52 Plt Morphology Comment Not Reportable 06/15/19 05:52 RBC Morphology Normal 06/15/19 05:52 Dimorphic RBCs Not Reportable 06/15/19 05:52 Polychromasia Not Reportable 06/15/19 05:52 Hypochromasia Not Reportable 06/15/19 05:52 Poikilocytosis Not Reportable 06/15/19 05:52 Anisocytosis Not Reportable 06/15/19 05:52 Microcytosis Not Reportable 06/15/19 05:52 Macrocytosis Not Reportable 06/15/19 05:52 Spherocytes Not Reportable 06/15/19 05:52 Pappenheimer Bodies Not Reportable 06/15/19 05:52 Sickle Cells Not Reportable 06/15/19 05:52 Target Cells Not Reportable 06/15/19 05:52 Tear Drop Cells Not Reportable 06/15/19 05:52 Ovalocytes Not Reportable 06/15/19 05:52 Helmet Cells Not Reportable 06/15/19 05:52 [place] Bodies Not Reportable 06/15/19 05:52 [place] Rings Not Reportable 06/15/19 05:52 [place] Cells Not Reportable 06/15/19 05:52 Bite Cells Not Reportable 06/15/19 05:52 Crenated Cell Not Reportable 06/15/19 05:52 Elliptocytes Not Reportable 06/15/19 05:52 Acanthocytes (Spur) Not Reportable 06/15/19 05:52 Rouleaux Not Reportable 06/15/19 05:52 Hemoglobin C Crystals Not Reportable 06/15/19 05:52 Schistocytes Not Reportable 06/15/19 05:52 Malaria parasites Not Reportable 06/15/19 05:52 Yinka Bodies Not Reportable 06/15/19 05:52 Hem Pathologist Commnt No 06/15/19 05:52 Sodium 142 mmol/L (137-145) 06/15/19 05:52 Potassium 3.9 mmol/L (3.6-5.0) 06/15/19 05:52 Chloride 107.8 mmol/L (98-107) H 06/15/19 05:52 Carbon Dioxide 20 mmol/L (22-30) L 06/15/19 05:52 Anion Gap 18 mmol/L 06/15/19 05:52 BUN 13 mg/dL (7-17) 06/15/19 05:52 Creatinine 0.7 mg/dL (0.7-1.2) 06/15/19 05:52 Estimated GFR > 60 ml/min 06/15/19 05:52 BUN/Creatinine Ratio 19 % 06/15/19 05:52 Glucose 97 mg/dL (65-100) 06/15/19 05:52 Hemoglobin A1c 5.6 % (4-6) 06/15/19 05:52 Calcium 9.3 mg/dL (8.4-10.2) 06/15/19 05:52 Total Bilirubin 0.30 mg/dL (0.1-1.2) 06/15/19 05:52 AST 26 units/L (5-40) 06/15/19 05:52 ALT 13 units/L (7-56) 06/15/19 05:52 Alkaline Phosphatase 57 units/L (35-129) 06/15/19 05:52 Total Protein 6.7 g/dL (6.3-8.2) 06/15/19 05:52 Albumin 3.8 g/dL (3.9-5) L 06/15/19 05:52 Albumin/Globulin Ratio 1.3 % 06/15/19 05:52 Triglycerides 75 mg/dL (2-149) 06/15/19 05:52 Cholesterol 153 mg/dL (50-199) 06/15/19 05:52 LDL Cholesterol Direct 76 mg/dL (50-130) 06/15/19 05:52 HDL Cholesterol 65 mg/dL (40-59) H 06/15/19 05:52 Cholesterol/HDL Ratio 2.35 % 06/15/19 05:52 Last Vital Signs Temp 98.5 F 06/22/19 22:00 Pulse 83 06/22/19 22:00 Resp 18 06/22/19 22:00 BP 175/82 06/22/19 22:00 Pulse Ox 99 06/22/19 22:00
[2019-06-23] MEDS: VALSARTAN 160MG TAB PO SCH (10:12)
[2019-06-23] MEDS: clonazePAM 0.5 MG TAB PO SCH ×2 (10:23→21:20)
[2019-06-23] MEDS: MELATONIN 5 MG TAB PO SCH (21:21)
[2019-06-23] MEDS: traZODone 50 MG TAB PO SCH (21:21)
[2019-06-23] MEDS: risperiDONE 3 MG TAB PO SCH (21:21)
--- NOTE | 2019-06-24 07:29 | Progress Note ---
Subjective Date of service: 06/24/19 Principal diagnosis: Schizophrenia Subjective Comment: Subjective Date of service: 06/16/19 Principal diagnosis: Schizophrenia Subjective Comment: I interviewed the patient this morning. Medical records reviewed and patient's progress was discussed with unit staff. Nursing staff reports patient is alert and hearing is selective. No verbalization. Patient is able to follow verbal commands and is compliant with PO medications. Ambulates with no assist. Withdrawn and isolate to self. During my interview with patient this morning she participated more today than yesterday. Mrs Ibarra states she slept well, and her mood was good. When asked about suicidal thoughts she said "no" and buried her face in the cover. She is still very much withdrawn and made little eye contact. Review of Symptoms: Constitutional: Negative for weight loss ENT: Negative for stridor Respiratory: Negative for cough or hemoptysis All other systems reviewed and are negative MSE Appearance: Wearing appropriate clothing. In bed. Behavior: calm and withdrawn Mood: Good Affect: restricted Thought Process: unable to assess Speech: Normal rate. Thought Process: Goal directed Speech: Normal rate. Thought Content Harmfulness Denies SI/HI Hallucinations: patient denies Delusions: none elicited Consciousness: alert. Cognition/Memory: fair Insight/Judgment: Limited. Diagnoses: Paranoid Schizophrenia Treatment Plan Due to the psychiatric conditions and treatment listed in the Assessment and Plan - the patient requires continued hospitalization. Will continue inpatient treatment to allow for medication adjustment and monitoring. Will continue q15 min safety checks. Will encourage the use of environmental modifications and non-pharmacologic approaches for the management of behavioral and psychological symptoms. Will continue current psych medications Monitor for medication side effects. The patient will continue on medications for physical illnesses, and Hospitalist will closely monitor these Continue intensive physical and occupational therapies. Monitor patient's mood, sleep, appetite, and behavior closely. Encourage patient to participate in individual and group therapeutic sessions on the [place]. Will provide a safe and therapeutic environment for patient. Medications and Allergies Allergies Allergy/AdvReac Type Severity Reaction Status Date / Time No Known Allergies Allergy Verified 09/17/15 10:37 Home Medications Medication Instructions Recorded Confirmed Last Taken Type Valsartan [Diovan] 1 tab PO DAILY 06/14/19 06/17/19 Unknown History clonazePAM 0.5 mg PO QHS 06/14/19 06/17/19 Unknown History clonazePAM [KlonoPIN] 0.25 mg PO QAM 06/14/19 06/17/19 Unknown History risperiDONE [RisperDAL] 3 mg PO QHS 06/14/19 06/17/19 Unknown History traZODone [Desyrel] 50 mg PO QHS PRN 06/14/19 06/17/19 Unknown History Fenofibrate Nanocrystallized 48 mg pe PO DAILY 06/17/19 06/17/19 Unknown History [Fenofibrate] risperiDONE [RisperDAL] 1 mg PO DAILY 06/17/19 06/17/19 Unknown History Active Meds: Active Medications Clonazepam (Klonopin) 0.5 mg PO QHS [facility] Last Admin: 06/23/19 21:20 Dose: 0.5 mg Documented by: Clonazepam (Klonopin) 0.25 mg PO QAM [facility] Last Admin: 06/23/19 10:23 Dose: 0.25 mg Documented by: Haloperidol Lactate (Haldol) 5 mg IM Q6H PRN PRN Reason: Agitation Lorazepam (Ativan) 2 mg IM Q6H PRN PRN Reason: Agitation Melatonin (Melatonin) 5 mg PO QHS [facility] Last Admin: 06/23/19 21:21 Dose: 5 mg Documented by: Risperidone (Risperdal) 3 mg PO QHS [facility] Last Admin: 06/23/19 21:21 Dose: 3 mg Documented by: Trazodone HCl (Desyrel) 50 mg PO QHS [facility] Last Admin: 06/23/19 21:21 Dose: 50 mg Documented by: Trazodone HCl (Desyrel) 50 mg PO QHS PRN PRN Reason: insomnia Valsartan (Diovan) 160 mg PO DAILY [facility] Last Admin: 06/23/19 10:12 Dose: 160 mg Documented by: Results - Results Labs/Vitals: Laboratory Last Values WBC 5.2 K/mm3 (4.5-11.0) 06/15/19 05:52 RBC 3.87 M/mm3 (3.65-5.03) 06/15/19 05:52 Hgb 11.4 gm/dl (10.1-14.3) 06/15/19 05:52 Hct 33.7 % (30.3-42.9) 06/15/19 05:52 MCV 87 fl (79-97) 06/15/19 05:52 MCH 30 pg (28-32) 06/15/19 05:52 MCHC 34 % (30-34) 06/15/19 05:52 RDW 14.3 % (13.2-15.2) 06/15/19 05:52 Plt Count 220 K/mm3 (140-440) 06/15/19 05:52 Add Manual Diff Complete 06/15/19 05:52 Total Counted 100 06/15/19 05:52 Seg Neuts % (Manual) 68.0 % (40.0-70.0) 06/15/19 05:52 Band Neutrophils % 0 % 06/15/19 05:52 Lymphocytes % (Manual) 25.0 % (13.4-35.0) 06/15/19 05:52 Reactive Lymphs % (Man) 0 % 06/15/19 05:52 Monocytes % (Manual) 6.0 % (0.0-7.3) 06/15/19 05:52 Eosinophils % (Manual) 1.0 % (0.0-4.3) 06/15/19 05:52 Basophils % (Manual) 0 % (0.0-1.8) 06/15/19 05:52 Metamyelocytes % 0 % 06/15/19 05:52 Myelocytes % 0 % 06/15/19 05:52 Promyelocytes % 0 % 06/15/19 05:52 Blast Cells % 0 % 06/15/19 05:52 Nucleated RBC % Not Reportable 06/15/19 05:52 Seg Neutrophils # Man 3.5 K/mm3 (1.8-7.7) 06/15/19 05:52 Band Neutrophils # 0.0 K/mm3 06/15/19 05:52 Lymphocytes # (Manual) 1.3 K/mm3 (1.2-5.4) 06/15/19 05:52 Abs React Lymphs (Man) 0.0 K/mm3 06/15/19 05:52 Monocytes # (Manual) 0.3 K/mm3 (0.0-0.8) 06/15/19 05:52 Eosinophils # (Manual) 0.1 K/mm3 (0.0-0.4) 06/15/19 05:52 Basophils # (Manual) 0.0 K/mm3 (0.0-0.1) 06/15/19 05:52 Metamyelocytes # 0.0 K/mm3 06/15/19 05:52 Myelocytes # 0.0 K/mm3 06/15/19 05:52 Promyelocytes # 0.0 K/mm3 06/15/19 05:52 Blast Cells # 0.0 K/mm3 06/15/19 05:52 WBC Morphology Not Reportable 06/15/19 05:52 Hypersegmented Neuts Not Reportable 06/15/19 05:52 Hyposegmented Neuts Not Reportable 06/15/19 05:52 Hypogranular Neuts Not Reportable 06/15/19 05:52 Smudge Cells Not Reportable 06/15/19 05:52 Toxic Granulation Not Reportable 06/15/19 05:52 Toxic Vacuolation Not Reportable 06/15/19 05:52 Dohle Bodies Not Reportable 06/15/19 05:52 Pelger-Huet Anomaly Not Reportable 06/15/19 05:52 Do Rods Not Reportable 06/15/19 05:52 Platelet Estimate Cons 06/15/19 05:52 Clumped Platelets Not Reportable 06/15/19 05:52 Plt Clumps, EDTA Not Reportable 06/15/19 05:52 Large Platelets Few 06/15/19 05:52 Giant Platelets Not Reportable 06/15/19 05:52 Platelet Satelliting Not Reportable 06/15/19 05:52 Plt Morphology Comment Not Reportable 06/15/19 05:52 RBC Morphology Normal 06/15/19 05:52 Dimorphic RBCs Not Reportable 06/15/19 05:52 Polychromasia Not Reportable 06/15/19 05:52 Hypochromasia Not Reportable 06/15/19 05:52 Poikilocytosis Not Reportable 06/15/19 05:52 Anisocytosis Not Reportable 06/15/19 05:52 Microcytosis Not Reportable 06/15/19 05:52 Macrocytosis Not Reportable 06/15/19 05:52 Spherocytes Not Reportable 06/15/19 05:52 Pappenheimer Bodies Not Reportable 06/15/19 05:52 Sickle Cells Not Reportable 06/15/19 05:52 Target Cells Not Reportable 06/15/19 05:52 Tear Drop Cells Not Reportable 06/15/19 05:52 Ovalocytes Not Reportable 06/15/19 05:52 Helmet Cells Not Reportable 06/15/19 05:52 Rios-[place] Bodies Not Reportable 06/15/19 05:52 [place] Rings Not Reportable 06/15/19 05:52 Sosa Cells Not Reportable 06/15/19 05:52 Bite Cells Not Reportable 06/15/19 05:52 Crenated Cell Not Reportable 06/15/19 05:52 Elliptocytes Not Reportable 06/15/19 05:52 Acanthocytes (Spur) Not Reportable 06/15/19 05:52 Rouleaux Not Reportable 06/15/19 05:52 Hemoglobin C Crystals Not Reportable 06/15/19 05:52 Schistocytes Not Reportable 06/15/19 05:52 Malaria parasites Not Reportable 06/15/19 05:52 [place]inka Bodies Not Reportable 06/15/19 05:52 Hem Pathologist Commnt No 06/15/19 05:52 Sodium 142 mmol/L (137-145) 06/15/19 05:52 Potassium 3.9 mmol/L (3.6-5.0) 06/15/19 05:52 Chloride 107.8 mmol/L (98-107) H 06/15/19 05:52 Carbon Dioxide 20 mmol/L (22-30) L 06/15/19 05:52 Anion Gap 18 mmol/L 06/15/19 05:52 BUN 13 mg/dL (7-17) 06/15/19 05:52 Creatinine 0.7 mg/dL (0.7-1.2) 06/15/19 05:52 Estimated GFR > 60 ml/min 06/15/19 05:52 BUN/Creatinine Ratio 19 % 06/15/19 05:52 Glucose 97 mg/dL (65-100) 06/15/19 05:52 Hemoglobin A1c 5.6 % (4-6) 06/15/19 05:52 Calcium 9.3 mg/dL (8.4-10.2) 06/15/19 05:52 Total Bilirubin 0.30 mg/dL (0.1-1.2) 06/15/19 05:52 AST 26 units/L (5-40) 06/15/19 05:52 ALT 13 units/L (7-56) 06/15/19 05:52 Alkaline Phosphatase 57 units/L (35-129) 06/15/19 05:52 Total Protein 6.7 g/dL (6.3-8.2) 06/15/19 05:52 Albumin 3.8 g/dL (3.9-5) L 06/15/19 05:52 Albumin/Globulin Ratio 1.3 % 06/15/19 05:52 Triglycerides 75 mg/dL (2-149) 06/15/19 05:52 Cholesterol 153 mg/dL (50-199) 06/15/19 05:52 LDL Cholesterol Direct 76 mg/dL (50-130) 06/15/19 05:52 HDL Cholesterol 65 mg/dL (40-59) H 06/15/19 05:52 Cholesterol/HDL Ratio 2.35 % 06/15/19 05:52 Last Vital Signs Temp 98.1 F 06/23/19 19:48 Pulse 99 H 06/23/19 19:48 Resp 17 06/23/19 19:48 BP 176/89 06/23/19 19:48 Pulse Ox 99 06/23/19 19:48
--- NOTE | 2019-06-24 08:46 | Discharge Summary ---
Providers - Providers Date of Admission: 06/14/19 21:52 Date of discharge: 06/24/19 Attending physician: TARIQ FREEMAN MD 06/14/19 18:28 Consult to Physician [CONS] Routine Comment: Consulting Provider: SHAYNA SALAS Physician Instructions: Reason For Exam: Medical management of geripsych patient Primary care physician: INGREDIENT MIXER Hospitalization Reason for admission: confused and disoriented, was non-compliant with medications Condition: Stable Hospital course: The patient was provided inpatient psychiatric treatment with safe and supportive environment, group/individual therapy, psychiatric medication, medication adjustment, adverse effect monitor, medical evaluation, medical treatment, social service assessment, social support meeting, placement assessment and psycho-education. The patients mood, cognition, behavior, motivation, compliance to treatment and appreciation on family/social support are improved and stabilized. At the time of discharge, the patient had no suicidal ideas, no homicidal ideas, no aggressive thoughts, no endangering behavior and no debilitating adverse effects. The patient agreed on the treatment plan, understood the risk, benefit, alternative treatment, potential consequence of no treatment, and gave informed consent. Disposition: DC-01 TO HOME OR SELFCARE Allergies/Adverse Reactions: Allergies No Known Allergies Allergy (Verified 09/17/15 10:37) Vital Signs: Last Vital Signs Temp 98.1 F 06/23/19 19:48 Pulse 99 H 06/23/19 19:48 Resp 17 06/23/19 19:48 BP 176/89 06/23/19 19:48 Pulse Ox 99 06/23/19 19:48 Last Lab: Laboratory Last Values WBC 5.2 K/mm3 (4.5-11.0) 06/15/19 05:52 RBC 3.87 M/mm3 (3.65-5.03) 06/15/19 05:52 Hgb 11.4 gm/dl (10.1-14.3) 06/15/19 05:52 Hct 33.7 % (30.3-42.9) 06/15/19 05:52 MCV 87 fl (79-97) 06/15/19 05:52 MCH 30 pg (28-32) 06/15/19 05:52 MCHC 34 % (30-34) 06/15/19 05:52 RDW 14.3 % (13.2-15.2) 06/15/19 05:52 Plt Count 220 K/mm3 (140-440) 06/15/19 05:52 Add Manual Diff Complete 06/15/19 05:52 Total Counted 100 06/15/19 05:52 Seg Neuts % (Manual) 68.0 % (40.0-70.0) 06/15/19 05:52 Band Neutrophils % 0 % 06/15/19 05:52 Lymphocytes % (Manual) 25.0 % (13.4-35.0) 06/15/19 05:52 Reactive Lymphs % (Man) 0 % 06/15/19 05:52 Monocytes % (Manual) 6.0 % (0.0-7.3) 06/15/19 05:52 Eosinophils % (Manual) 1.0 % (0.0-4.3) 06/15/19 05:52 Basophils % (Manual) 0 % (0.0-1.8) 06/15/19 05:52 Metamyelocytes % 0 % 06/15/19 05:52 Myelocytes % 0 % 06/15/19 05:52 Promyelocytes % 0 % 06/15/19 05:52 Blast Cells % 0 % 06/15/19 05:52 Nucleated RBC % Not Reportable 06/15/19 05:52 Seg Neutrophils # Man 3.5 K/mm3 (1.8-7.7) 06/15/19 05:52 Band Neutrophils # 0.0 K/mm3 06/15/19 05:52 Lymphocytes # (Manual) 1.3 K/mm3 (1.2-5.4) 06/15/19 05:52 Abs React Lymphs (Man) 0.0 K/mm3 06/15/19 05:52 Monocytes # (Manual) 0.3 K/mm3 (0.0-0.8) 06/15/19 05:52 Eosinophils # (Manual) 0.1 K/mm3 (0.0-0.4) 06/15/19 05:52 Basophils # (Manual) 0.0 K/mm3 (0.0-0.1) 06/15/19 05:52 Metamyelocytes # 0.0 K/mm3 06/15/19 05:52 Myelocytes # 0.0 K/mm3 06/15/19 05:52 Promyelocytes # 0.0 K/mm3 06/15/19 05:52 Blast Cells # 0.0 K/mm3 06/15/19 05:52 WBC Morphology Not Reportable 06/15/19 05:52 Hypersegmented Neuts Not Reportable 06/15/19 05:52 Hyposegmented Neuts Not Reportable 06/15/19 05:52 Hypogranular Neuts Not Reportable 06/15/19 05:52 Smudge Cells Not Reportable 06/15/19 05:52 Toxic Granulation Not Reportable 06/15/19 05:52 Toxic Vacuolation Not Reportable 06/15/19 05:52 Dohle Bodies Not Reportable 06/15/19 05:52 Pelger-Huet Anomaly Not Reportable 06/15/19 05:52 Do Rods Not Reportable 06/15/19 05:52 Platelet Estimate Cons 06/15/19 05:52 Clumped Platelets Not Reportable 06/15/19 05:52 Plt Clumps, EDTA Not Reportable 06/15/19 05:52 Large Platelets Few 06/15/19 05:52 Giant Platelets Not Reportable 06/15/19 05:52 Platelet Satelliting Not Reportable 06/15/19 05:52 Plt Morphology Comment Not Reportable 06/15/19 05:52 RBC Morphology Normal 06/15/19 05:52 Dimorphic RBCs Not Reportable 06/15/19 05:52 Polychromasia Not Reportable 06/15/19 05:52 Hypochromasia Not Reportable 06/15/19 05:52 Poikilocytosis Not Reportable 06/15/19 05:52 Anisocytosis Not Reportable 06/15/19 05:52 Microcytosis Not Reportable 06/15/19 05:52 Macrocytosis Not Reportable 06/15/19 05:52 Spherocytes Not Reportable 06/15/19 05:52 Pappenheimer Bodies Not Reportable 06/15/19 05:52 Sickle Cells Not Reportable 06/15/19 05:52 Target Cells Not Reportable 06/15/19 05:52 Tear Drop Cells Not Reportable 06/15/19 05:52 Ovalocytes Not Reportable 06/15/19 05:52 Helmet Cells Not Reportable 06/15/19 05:52 [place] Bodies Not Reportable 06/15/19 05:52 [place] Rings Not Reportable 06/15/19 05:52 Sosa Cells Not Reportable 06/15/19 05:52 Bite Cells Not Reportable 06/15/19 05:52 Crenated Cell Not Reportable 06/15/19 05:52 Elliptocytes Not Reportable 06/15/19 05:52 Acanthocytes (Spur) Not Reportable 06/15/19 05:52 Rouleaux Not Reportable 06/15/19 05:52 Hemoglobin C Crystals Not Reportable 06/15/19 05:52 Schistocytes Not Reportable 06/15/19 05:52 Malaria parasites Not Reportable 06/15/19 05:52 Yinka Bodies Not Reportable 06/15/19 05:52 Hem Pathologist Commnt No 06/15/19 05:52 Sodium 142 mmol/L (137-145) 06/15/19 05:52 Potassium 3.9 mmol/L (3.6-5.0) 06/15/19 05:52 Chloride 107.8 mmol/L (98-107) H 06/15/19 05:52 Carbon Dioxide 20 mmol/L (22-30) L 06/15/19 05:52 Anion Gap 18 mmol/L 06/15/19 05:52 BUN 13 mg/dL (7-17) 06/15/19 05:52 Creatinine 0.7 mg/dL (0.7-1.2) 06/15/19 05:52 Estimated GFR > 60 ml/min 06/15/19 05:52 BUN/Creatinine Ratio 19 % 06/15/19 05:52 Glucose 97 mg/dL (65-100) 06/15/19 05:52 Hemoglobin A1c 5.6 % (4-6) 06/15/19 05:52 Calcium 9.3 mg/dL (8.4-10.2) 06/15/19 05:52 Total Bilirubin 0.30 mg/dL (0.1-1.2) 06/15/19 05:52 AST 26 units/L (5-40) 06/15/19 05:52 ALT 13 units/L (7-56) 06/15/19 05:52 Alkaline Phosphatase 57 units/L (35-129) 06/15/19 05:52 Total Protein 6.7 g/dL (6.3-8.2) 06/15/19 05:52 Albumin 3.8 g/dL (3.9-5) L 06/15/19 05:52 Albumin/Globulin Ratio 1.3 % 06/15/19 05:52 Triglycerides 75 mg/dL (2-149) 06/15/19 05:52 Cholesterol 153 mg/dL (50-199) 06/15/19 05:52 LDL Cholesterol Direct 76 mg/dL (50-130) 06/15/19 05:52 HDL Cholesterol 65 mg/dL (40-59) H 06/15/19 05:52 Cholesterol/HDL Ratio 2.35 % 06/15/19 05:52 Core Measure Documentation - Palliative Care Palliative Care/ Comfort Measures: Not Applicable - Core Measures Any of the following diagnoses?: none Exam - Constitutional Vitals: Temp Pulse Resp BP Pulse Ox 98.1 F 99 H 17 176/89 99 06/23/19 19:48 06/23/19 19:48 06/23/19 19:48 06/23/19 19:48 06/23/19 19:48 General appearance: Present: no acute distress, well-nourished - EENT Eyes: Present: PERRL, EOM intact ENT: hearing intact, clear oral mucosa - Neck Neck: Present: supple, normal ROM - Respiratory Respiratory effort: normal Plan Activity: advance as tolerated Weight Bearing Status: Weight Bear as Tolerated Care Plan Goals: Maintain good and stable mental health Plan of Treatment: The patient should be compliant with medications, not to use drugs and not to drink alcohol. The patient understands that if suicidal ideas, homicidal ideas, or any endangering thoughts arise, the patient should immediately seek for emergent assistance including but not limited to crisis hot line and emergency room. Follow up with outpatient Psychiatrist and PCP within 7 - 14 days of discharge. Health Concerns: CVA, ARF Assessment: Schizophrenia Follow up with: PRIMARY CARE,MD [Primary Care Provider] - 7 Days Prescriptions: Melatonin [Melatonin 5MG TAB] 5 mg PO QHS #30 tablet
[2019-06-24 09:14] VITALS: BP 126/58
[2019-06-24] MEDS: VALSARTAN 160MG TAB PO SCH (09:15)
[2019-06-24] MEDS: clonazePAM 0.5 MG TAB PO SCH (09:15)
== END 2019-06-24 13:21 | disposition home or self-care (01) | DRG 885 ==
LOC: 3A 17:32 → UNDOADMIN 17:32 → 5A 21:52
PROVIDERS: ADMIT Psychiatry & Neurology Psychiatry; ATTEND Psychiatry & Neurology Psychiatry
DX: F20.0 Paranoid schizophrenia (principal); Z91.14 Patient's other noncompliance with medication regimen; Z79.899 Other long term (current) drug therapy
CPT/HCPCS: 36415; 80048; 80053; 80061; 80307; 80320; 81001; 82550; 82962; 83036; 84439; 84443; 84484; 85007; 85025; 93005; 93010; G0378; G0480

== ENCOUNTER 2019-09-13 18:42 | Emergency (ER) | payer MEDICARE ==
[2019-09-13 21:02] LABS: Basophils % (Auto) 0.6 % (0.0-1.8); Eosinophils # (Auto) 0.1 K/mm3 (0.0-0.4); Eosinophils % (Auto) 1.7 % (0.0-4.3); Hematocrit 32.7 % (30.3-42.9); Lymphocytes # (Auto) 1.5 K/mm3 (1.2-5.4); Lymphocytes % (Auto) 24.2 % (13.4-35.0); Mean Corpuscular HGB Conc 34 % (30-34); Mean Corpuscular Volume 88 fl (79-97); Monocytes # (Auto) 0.4 K/mm3 (0.0-0.8); Monocytes % (Auto) 7.1 % (0.0-7.3); Platelet Count 237 K/mm3 (140-440); Red Blood Count 3.72 M/mm3 (3.65-5.03)
[2019-09-13 21:22] LABS: BUN/Creatinine Ratio 20; Blood Urea Nitrogen 12 mg/dL (7-17); Calcium 8.9 mg/dL (8.4-10.2); Hemolysis Index 1
--- NOTE | 2019-09-13 21:25 | XRay Report ---
CHEST 1 VIEW INDICATION / CLINICAL INFORMATION: MAIN: ams weak; "not taking meds, not herself" per pt's nephew. COMPARISON: None available. FINDINGS: SUPPORT DEVICES: None. HEART / MEDIASTINUM: No significant abnormality. LUNGS / PLEURA: Ill-defined bilateral airspace opacity within the lower lungs. Signer Name: Ignacio Ramirez MD Signed: 09/13/2019 9:20 PM Workstation Name: [id number]
[2019-09-13] MEDS ORDERED: POTASSIUM CHLORIDE ER 20 MEQ TAB PO ONE (21:28)
[2019-09-13] MEDS ORDERED: HALOPERIDOL LACTATE 5 MG/1 ML INJ IM PRN (21:28)
[2019-09-13] MEDS ORDERED: LORazepam 2 MG/ML VIAL IM PRN (21:28)
[2019-09-13] MEDS ORDERED: ALBUTEROL 2.5 MG/3 ML NEBU IH PRN (21:29)
--- NOTE | 2019-09-13 21:31 | Emergency Department Report ---
ED General Adult HPI - General Chief complaint: Altered Mental Status Stated complaint: AMS Time Seen by Provider: 09/13/19 20:23 Source: family, EMS, RN notes reviewed, old records reviewed Mode of arrival: Ambulatory Limitations: Language Barrier - History of Present Illness Initial comments: The patient is a 69-year-old female. She is accompanied by her nephew, Mr. Sly Duque; [phone]. He presides all of the patient's history. Her primary care doctor is Dr. Nic Doty She has a history of type 2 diabetes, hypertension and psychosis. She is brought to the hospital by her nephew for "unstable behavior." He reports that she has not been taking her outpatient medications over the past few months, and she is not sleeping, not eating, wandering around, and occasionally making nonsensical statements. He denies fever, nausea, vomiting, cough, shortness of breath, abdominal pain, diarrhea, irritative/obstructive urinary symptoms. He came in today with the patient because the patient is getting worse, and the nephew and the family are not able to care for the patient. He is very concerned that the patient may represent a danger to herself. The patient herself denies physical pain. She denies intention to overdose. She has no complaints at this time. She is not able to describe exacerbating or relieving factors, or qualitative nature of her symptoms. -: Sudden, month(s) Quality: other Consistency: other Improves with: other Worsens with: other Associated Symptoms: other - Related Data Home Medications Medication Instructions Recorded Confirmed Last Taken Valsartan [Diovan] 1 tab PO DAILY 06/14/19 09/14/19 Unknown clonazePAM 0.5 mg PO QHS 06/14/19 09/14/19 Unknown clonazePAM [KlonoPIN] 0.25 mg PO QAM 06/14/19 09/14/19 Unknown risperiDONE [RisperDAL] 3 mg PO QHS 06/14/19 09/14/19 Unknown traZODone [Desyrel] 50 mg PO QHS PRN 06/14/19 09/14/19 Unknown Fenofibrate Nanocrystallized 48 mg pe PO DAILY 06/17/19 09/14/19 Unknown [Fenofibrate] risperiDONE [RisperDAL] 1 mg PO DAILY 06/17/19 09/14/19 Unknown Previous Rx's Medication Instructions Recorded Last Taken Type Melatonin [Melatonin 5MG TAB] 5 mg PO QHS #30 tablet 06/24/19 Unknown Rx Allergies Allergy/AdvReac Type Severity Reaction Status Date / Time No Known Allergies Allergy Verified 09/17/15 10:37 ED Review of Systems ROS: Stated complaint: AMS Other details as noted in HPI Comment: As per family member Constitutional: denies: fever Eyes: denies: eye discharge ENT: denies: congestion Respiratory: denies: wheezing Cardiovascular: denies: chest pain, syncope Gastrointestinal: denies: abdominal pain Genitourinary: denies: dysuria Musculoskeletal: denies: back pain Skin: denies: lesions Neurological: confusion Psychiatric: as per HPI. denies: homicidal thoughts, suicidal thoughts ED Past Medical Hx - Past Medical History Previous Medical History?: Yes Hx Hypertension: Yes Hx Diabetes: Yes Hx Renal Disease: Yes Hx Arthritis: No Hx Seizures: No Hx Psychiatric Treatment: Yes (schizophrenia) Hx Dementia: Yes - Surgical History Hx Cholecystectomy: No Hx Appendectomy: No - Social History Smoking Status: Never Smoker Substance Use Type: None - Medications Home Medications: Home Medications Medication Instructions Recorded Confirmed Last Taken Type Valsartan [Diovan] 1 tab PO DAILY 06/14/19 09/14/19 Unknown History clonazePAM 0.5 mg PO QHS 06/14/19 09/14/19 Unknown History clonazePAM [KlonoPIN] 0.25 mg PO QAM 06/14/19 09/14/19 Unknown History risperiDONE [RisperDAL] 3 mg PO QHS 06/14/19 09/14/19 Unknown History traZODone [Desyrel] 50 mg PO QHS PRN 06/14/19 09/14/19 Unknown History Fenofibrate Nanocrystallized 48 mg pe PO DAILY 06/17/19 09/14/19 Unknown History [Fenofibrate] risperiDONE [RisperDAL] 1 mg PO DAILY 06/17/19 09/14/19 Unknown History Melatonin [Melatonin 5MG TAB] 5 mg PO QHS #30 tablet 06/24/19 09/14/19 Unknown Rx ED Physical Exam - General Limitations: Language Barrier General appearance: in no apparent distress - Head Head exam: Present: atraumatic, normocephalic - Eye Eye exam: Present: normal appearance, EOMI, other (Visual acuity is intact to finger counting and color perception at a close distance). Absent: nystagmus - ENT ENT exam: Present: normal exam, normal orophraynx, mucous membranes moist, normal external ear exam - Neck Neck exam: Present: normal inspection, full ROM. Absent: tenderness, meningismus - Respiratory Respiratory exam: Present: normal lung sounds bilaterally. Absent: respiratory distress - Cardiovascular Cardiovascular Exam: Present: regular rate, normal rhythm, normal heart sounds. Absent: bradycardia, tachycardia, irregular rhythm, systolic murmur, diastolic murmur, rubs, gallop - GI/Abdominal GI/Abdominal exam: Present: soft, normal bowel sounds. Absent: distended, tenderness, guarding, rebound, rigid, pulsatile mass, hernia - Extremities Exam Extremities exam: Present: normal inspection, full ROM, other (2+ pulses noted in the bilateral upper and lower extremities. There is no palpable cord. negative Homans sign. Muscular compartments are soft. The pelvis is stable.). Absent: calf tenderness - Back Exam Back exam: Present: normal inspection, full ROM. Absent: tenderness, CVA tenderness (R), CVA tenderness (L), paraspinal tenderness, vertebral tenderness - Neurological Exam Neurological exam: Present: alert, other (There is no facial droop. The tongue is midline. Extraocular movements are intact bilaterally. There is 5 out of 5 strength in bilateral upper and lower extremities. Sensation is intact to light touch bilateral upper and lower extremities. ). Absent: motor sensory deficit - Psychiatric Psychiatric exam: Present: flat affect - Skin Skin exam: Present: warm, dry, intact, normal color. Absent: rash ED Course Vital Signs 09/13/19 09/14/19 09/14/19 19:28 07:31 11:48 Temperature 99.3 F Pulse Rate 70 64 64 Respiratory 18 16 Rate Blood Pressure 155/68 160/81 Blood Pressure 160/81 [Right] O2 Sat by Pulse 99 99 Oximetry - Reevaluation(s) Reevaluation #1: 09/14/19 00:12 Discussed plan of care with patient's nephew, who verbalized understanding. He gave verbal consent for physical and chemical restraint, if necessary. ED Medical Decision Making - Lab Data Result diagrams: 09/13/19 20:01 09/13/19 20:01 Vital Signs 09/13/19 19:28 Temperature 99.3 F Pulse Rate 70 Respiratory 18 Rate Blood Pressure 155/68 O2 Sat by Pulse 99 Oximetry Lab Results 09/13/19 09/13/19 Range/Units 20:01 20:01 WBC 6.1 (4.5-11.0) K/mm3 RBC 3.72 (3.65-5.03) M/mm3 Hgb 11.0 (10.1-14.3) gm/dl Hct 32.7 (30.3-42.9) % MCV 88 (79-97) fl MCH 30 (28-32) pg MCHC 34 (30-34) % RDW 15.0 (13.2-15.2) % Plt Count 237 (140-440) K/mm3 Lymph % (Auto) 24.2 (13.4-35.0) % Antelope % (Auto) 7.1 (0.0-7.3) % Eos % (Auto) 1.7 (0.0-4.3) % Baso % (Auto) 0.6 (0.0-1.8) % Lymph # 1.5 (1.2-5.4) K/mm3 Antelope # 0.4 (0.0-0.8) K/mm3 Eos # 0.1 (0.0-0.4) K/mm3 Baso # 0.0 (0.0-0.1) K/mm3 Seg Neutrophils % 66.4 (40.0-70.0) % Seg Neutrophils # 4.0 (1.8-7.7) K/mm3 Sodium 140 (137-145) mmol/L Potassium 3.4 L (3.6-5.0) mmol/L Chloride 103.4 (98-107) mmol/L Carbon Dioxide 24 (22-30) mmol/L Anion Gap 16 mmol/L BUN 12 (7-17) mg/dL Creatinine 0.6 L (0.7-1.2) mg/dL Estimated GFR > 60 ml/min BUN/Creatinine Ratio 20 % Glucose 120 H (65-100) mg/dL Calcium 8.9 (8.4-10.2) mg/dL Lab Results 09/13/19 09/13/19 09/13/19 Range/Units 20:01 20:01 21:05 WBC 6.1 (4.5-11.0) K/mm3 RBC 3.72 (3.65-5.03) M/mm3 Hgb 11.0 (10.1-14.3) gm/dl Hct 32.7 (30.3-42.9) % MCV 88 (79-97) fl MCH 30 (28-32) pg MCHC 34 (30-34) % RDW 15.0 (13.2-15.2) % Plt Count 237 (140-440) K/mm3 Lymph % (Auto) 24.2 (13.4-35.0) % Antelope % (Auto) 7.1 (0.0-7.3) % Eos % (Auto) 1.7 (0.0-4.3) % Baso % (Auto) 0.6 (0.0-1.8) % Lymph # 1.5 (1.2-5.4) K/mm3 Antelope # 0.4 (0.0-0.8) K/mm3 Eos # 0.1 (0.0-0.4) K/mm3 Baso # 0.0 (0.0-0.1) K/mm3 Seg Neutrophils % 66.4 (40.0-70.0) % Seg Neutrophils # 4.0 (1.8-7.7) K/mm3 Sodium 140 (137-145) mmol/L Potassium 3.4 L (3.6-5.0) mmol/L Chloride 103.4 (98-107) mmol/L Carbon Dioxide 24 (22-30) mmol/L Anion Gap 16 mmol/L BUN 12 (7-17) mg/dL Creatinine 0.6 L (0.7-1.2) mg/dL Estimated GFR > 60 ml/min BUN/Creatinine Ratio 20 % Glucose 120 H (65-100) mg/dL Calcium 8.9 (8.4-10.2) mg/dL Magnesium (1.7-2.3) mg/dL Total Bilirubin 0.20 (0.1-1.2) mg/dL Direct Bilirubin < 0.2 (0-0.2) mg/dL Indirect Bilirubin 0.0 mg/dL AST 17 (5-40) units/L ALT 12 (7-56) units/L Alkaline Phosphatase 65 (35-129) units/L Total Creatine Kinase (30-135) units/L Total Protein 6.5 (6.3-8.2) g/dL Albumin 3.9 (3.9-5) g/dL Albumin/Globulin Ratio 1.5 % Urine Color (Yellow) Urine Turbidity (Clear) Urine pH (5.0-7.0) Ur Specific Paxton (1.003-1.030) Urine Protein (Negative) mg/dL Urine Glucose (UA) (Negative) mg/dL Urine Ketones (Negative) mg/dL Urine Blood (Negative) Urine Nitrite (Negative) Urine Bilirubin (Negative) Urine Urobilinogen (<2.0) mg/dL Ur Leukocyte Esterase (Negative) Urine WBC (Auto) (0.0-6.0) /HPF Urine RBC (Auto) (0.0-6.0) /HPF U Epithel Cells (Auto) (0-13.0) /HPF Urine Bacteria (Auto) (Negative) /HPF Urine Mucus /HPF Salicylates (2.8-20.0) mg/dL Urine Opiates Screen Urine Methadone Screen Acetaminophen (10.0-30.0) ug/mL Ur Barbiturates Screen Ur Phencyclidine Scrn Ur Amphetamines Screen U Benzodiazepines Scrn Urine Cocaine Screen U Marijuana (THC) Screen Drugs of Abuse Note Plasma/Serum Alcohol (0-0.07) % 09/13/19 09/13/19 09/13/19 Range/Units 21:05 21:05 21:05 WBC (4.5-11.0) K/mm3 RBC (3.65-5.03) M/mm3 Hgb (10.1-14.3) gm/dl Hct (30.3-42.9) % MCV (79-97) fl MCH (28-32) pg MCHC (30-34) % RDW (13.2-15.2) % Plt Count (140-440) K/mm3 Lymph % (Auto) (13.4-35.0) % Antelope % (Auto) (0.0-7.3) % Eos % (Auto) (0.0-4.3) % Baso % (Auto) (0.0-1.8) % Lymph # (1.2-5.4) K/mm3 Antelope # (0.0-0.8) K/mm3 Eos # (0.0-0.4) K/mm3 Baso # (0.0-0.1) K/mm3 Seg Neutrophils % (40.0-70.0) % Seg Neutrophils # (1.8-7.7) K/mm3 Sodium (137-145) mmol/L Potassium (3.6-5.0) mmol/L Chloride (98-107) mmol/L Carbon Dioxide (22-30) mmol/L Anion Gap mmol/L BUN (7-17) mg/dL Creatinine (0.7-1.2) mg/dL Estimated GFR ml/min BUN/Creatinine Ratio % Glucose (65-100) mg/dL Calcium (8.4-10.2) mg/dL Magnesium (1.7-2.3) mg/dL Total Bilirubin (0.1-1.2) mg/dL Direct Bilirubin (0-0.2) mg/dL Indirect Bilirubin mg/dL AST (5-40) units/L ALT (7-56) units/L Alkaline Phosphatase (35-129) units/L Total Creatine Kinase (30-135) units/L Total Protein (6.3-8.2) g/dL Albumin (3.9-5) g/dL Albumin/Globulin Ratio % Urine Color (Yellow) Urine Turbidity (Clear) Urine pH (5.0-7.0) Ur Specific Paxton (1.003-1.030) Urine Protein (Negative) mg/dL Urine Glucose (UA) (Negative) mg/dL Urine Ketones (Negative) mg/dL Urine Blood (Negative) Urine Nitrite (Negative) Urine Bilirubin (Negative) Urine Urobilinogen (<2.0) mg/dL Ur Leukocyte Esterase (Negative) Urine WBC (Auto) (0.0-6.0) /HPF Urine RBC (Auto) (0.0-6.0) /HPF U Epithel Cells (Auto) (0-13.0) /HPF Urine Bacteria (Auto) (Negative) /HPF Urine Mucus /HPF Salicylates < 0.3 L (2.8-20.0) mg/dL Urine Opiates Screen Urine Methadone Screen Acetaminophen < 5.0 L (10.0-30.0) ug/mL Ur Barbiturates Screen Ur Phencyclidine Scrn Ur Amphetamines Screen U Benzodiazepines Scrn Urine Cocaine Screen U Marijuana (THC) Screen Drugs of Abuse Note Plasma/Serum Alcohol < 0.01 (0-0.07) % 09/13/19 09/13/19 09/13/19 Range/Units 21:05 21:35 21:35 WBC (4.5-11.0) K/mm3 RBC (3.65-5.03) M/mm3 Hgb (10.1-14.3) gm/dl Hct (30.3-42.9) % MCV (79-97) fl MCH (28-32) pg MCHC (30-34) % RDW (13.2-15.2) % Plt Count (140-440) K/mm3 Lymph % (Auto) (13.4-35.0) % Antelope % (Auto) (0.0-7.3) % Eos % (Auto) (0.0-4.3) % Baso % (Auto) (0.0-1.8) % Lymph # (1.2-5.4) K/mm3 Antelope # (0.0-0.8) K/mm3 Eos # (0.0-0.4) K/mm3 Baso # (0.0-0.1) K/mm3 Seg Neutrophils % (40.0-70.0) % Seg Neutrophils # (1.8-7.7) K/mm3 Sodium (137-145) mmol/L Potassium (3.6-5.0) mmol/L Chloride (98-107) mmol/L Carbon Dioxide (22-30) mmol/L Anion Gap mmol/L BUN (7-17) mg/dL Creatinine (0.7-1.2) mg/dL Estimated GFR ml/min BUN/Creatinine Ratio % Glucose (65-100) mg/dL Calcium (8.4-10.2) mg/dL Magnesium 2.10 (1.7-2.3) mg/dL Total Bilirubin (0.1-1.2) mg/dL Direct Bilirubin (0-0.2) mg/dL Indirect Bilirubin mg/dL AST (5-40) units/L ALT (7-56) units/L Alkaline Phosphatase (35-129) units/L Total Creatine Kinase 313 H (30-135) units/L Total Protein (6.3-8.2) g/dL Albumin (3.9-5) g/dL Albumin/Globulin Ratio % Urine Color Yellow (Yellow) Urine Turbidity Clear (Clear) Urine pH 5.0 (5.0-7.0) Ur Specific Paxton 1.014 (1.003-1.030) Urine Protein <15 mg/dl (Negative) mg/dL Urine Glucose (UA) Neg (Negative) mg/dL Urine Ketones Neg (Negative) mg/dL Urine Blood Neg (Negative) Urine Nitrite Neg (Negative) Urine Bilirubin Neg (Negative) Urine Urobilinogen < 2.0 (<2.0) mg/dL Ur Leukocyte Esterase Neg (Negative) Urine WBC (Auto) 1.0 (0.0-6.0) /HPF Urine RBC (Auto) 1.0 (0.0-6.0) /HPF U Epithel Cells (Auto) 5.0 (0-13.0) /HPF Urine Bacteria (Auto) 1+ (Negative) /HPF Urine Mucus Few /HPF Salicylates (2.8-20.0) mg/dL Urine Opiates Screen Presumptive negative Urine Methadone Screen Presumptive negative Acetaminophen (10.0-30.0) ug/mL Ur Barbiturates Screen Presumptive negative Ur Phencyclidine Scrn Presumptive negative Ur Amphetamines Screen Presumptive negative U Benzodiazepines Scrn Presumptive negative Urine Cocaine Screen Presumptive negative U Marijuana (THC) Screen Presumptive negative Drugs of Abuse Note Disclamer Plasma/Serum Alcohol (0-0.07) % - EKG Data -: EKG Interpreted by Nm EKG shows normal: sinus rhythm Rate: normal - EKG Data 09/14/19 00:09 Sinus rhythm, 54 bpm, bradycardia, left ventricular hypertrophy, normal axis, Q TC within normal limits, unchanged from prior EKG from 06/2019. It is not a STEMI. Q waves noted in the high lateral leads - Radiology Data Radiology results: report reviewed, image reviewed Print Report Referring Physician: ADAM ALCALA Patient Name: LUCERO STERLING Date of : 1950 Sex: Female Report Date: 2019-09-13 Report Status: Finalized Findings [facility] [address] [place] [address] XRay Report Signed Patient: LUCERO STERLING MR#: [id number] : 1950 Acct:[id number] Age/Sex: 69 / F ADM Date: 09/13/19 Loc: ED Attending Dr: Ordering Physician: ADAM ALCALA MD Date of Service: 09/13/19 Procedure(s): XR chest 1V ap Accession Number(s): [id number] cc: ADAM ALCALA MD Fluoro Time In Minutes: CHEST 1 VIEW INDICATION / CLINICAL INFORMATION: MAIN: ams weak; "not taking meds, not herself" per pt's nephew. COMPARISON: None available. FINDINGS: SUPPORT DEVICES: None. HEART / MEDIASTINUM: No significant abnormality. LUNGS / PLEURA: Ill-defined bilateral airspace opacity within the lower lungs. Signer Name: Ignacio Ramirez MD Signed: 09/13/2019 9:20 PM Workstation Name: [id number] Transcribed By: BC Dictated By: Ignacio Ramirez MD Electronically Authenticated By: Ignacio Ramirez MD Signed Date/Time: 09/13/192119 DD/ 19 TD/TT: Print Report Referring Physician: ADAM ALCALA Patient Name: LUCERO STERLING Date of : 1950 Sex: Female Report Date: 2019-09-13 Report Status: Finalized Findings [facility] [address] [place] [address] Cat Scan Report Signed Patient: LUCERO STERLING MR#: [id number] : 1950 Acct:[id number] Age/Sex: 69 / F ADM Date: 09/13/19 Loc: ED Attending Dr: Ordering Physician: ADAM ALCALA MD Date of Service: 09/13/19 Procedure(s): CT head/brain wo con Accession Number(s): [id number] cc: ADAM ALCALA MD CT head/brain wo con INDICATION / CLINICAL INFORMATION: 69 years Female; ams weak. TECHNIQUE: Routine CT head without contrast. All CT scans at this location are performed using CT dose reduction for ALARA by means of automated exposure control. COMPARISON: None. FINDINGS: BRAIN / INTRACRANIAL CONTENTS: No acute hemorrhage, mass effect, midline shift, hydrocephalus, or acute, large territorial infarct. No chronic infarct or atrophy appreciated. No significant white matter abnormality. CRANIOCERVICAL JUNCTION: No significant abnormality. O RBITS: No significant abnormality of visualized orbits. SINUSES / MASTOIDS: No significant abnormality the visualized paranasal sinuses or mastoid air cells. ADDITIONAL FINDINGS: None. IMPRESSION: 1. No focal mass, hemorrhage, hydrocephalus, or acute, large territorial infarct. Signer Name: Landon Ferrer MD, III Signed: 09/13/2019 9:35 PM Workstation Name: [id number] Transcribed By: HR Dictated By: Landon Ferrer MD Electronically Authenticated By: Landon Ferrer MD Signed Date/Time: 09/13/192134 DD/ 32 TD/TT: - Medical Decision Making Differential diagnosis, including but not limited to: Dementia, psychosis, noncompliance, pneumonia, urinary tract infection, medical clearance for psychiatric placement Assessment and plan: 69-year-old female with known history of psychiatric disease, who was brought to the hospital by her son for disorganized behavior and not acting at her baseline over the past couple months. The patient is pleasant, calm and cooperative, she is afebrile with reassuring vital signs, with an unremarkable physical exam, and nonfocal neurologic examination. Screening laboratory studies are reviewed and appreciated. X-ray of the chest is reviewed and appreciated, noncontrast CT scan of the brain is reviewed and appreciated. Given advanced age, and presence of bacteriuria, we will medicate empirically with levofloxacin. X-ray of the chest is reviewed and appreciated, the patient is not hypoxic, family has not endorsed any respiratory symptoms or travel, and lung sounds are clear to auscultation bilaterally. This may be a component of atelectatic changes. In any event, we will treat with Levaquin, a respiratory fluoroquinolone, to cover both possible pulmonary and urinary pathogens. A psychiatric consultation and case management consultation have been requested. At the moment, the patient does not have an immediate medical contraindication to psychiatric admission, evaluation, consultation and placement. She does not meet criteria for inpatient hospitalization at this time. Critical care attestation.: If time is entered above; I have spent that time in minutes in the direct care of this critically ill patient, excluding procedure time. ED Disposition Clinical Impression: Medical clearance for psychiatric admission, Disorganized behavior Disposition: DC-01 TO HOME OR SELFCARE Is pt being admited?: No Does the pt Need Aspirin: No Condition: Good Referrals: PRIMARY CARE, [Primary Care Provider] - 3-5 Days
--- NOTE | 2019-09-13 21:39 | Cat Scan Report ---
CT head/brain wo con INDICATION / CLINICAL INFORMATION: 69 years Female; ams weak. TECHNIQUE: Routine CT head without contrast. All CT scans at this location are performed using CT dos e reduction for ALARA by means of automated exposure control. COMPARISON: None. FINDINGS: BRAIN / INTRACRANIAL CONTENTS: No acute hemorrhage, mass effect, midline shift, hydrocephalus, or acu te, large territorial infarct. No chronic infarct or atrophy appreciated. No significant white matter abnormality. CRANIOCERVICAL JUNCTION: No significant abnormality. ORBITS: No significant abnormality of visualized orbits. SINUSES / MASTOIDS: No significant abnormality the visualized paranasal sinuses or mastoid air cells. ADDITIONAL FINDINGS: None. IMPRESSION: 1. No focal mass, hemorrhage, hydrocephalus, or acute, large territorial infarct. Signer Name: Landon Ferrer MD, III Signed: 09/13/2019 9:35 PM Workstation Name: [id number]
[2019-09-13 21:51] LABS: Alanine Aminotransferase 12 units/L (7-56); Albumin 3.9 g/dL (3.9-5)
[2019-09-13 21:52] LABS: Bilirubin,Direct < 0.2 mg/dL (0-0.2)
[2019-09-13 22:27] LABS: Bacteria,Urine 1+ /HPF (Negative); Bilirubin,Urine NEG (Negative); Blood,Urine NEG (Negative); Color,Urine Yellow (Yellow); Mucus,Urine FEW /HPF; Protein,Urine <15 mg/dL mg/dL (Negative); Urobilinogen,Urine < 2.0 mg/dL (<2.0)
[2019-09-13 22:35] LABS: Amphetamine Screen,Urine PRESUMPTIVE NEGATIVE; Benzodiazepines Screen,Urine PRESUMPTIVE NEGATIVE; Cannabinoid Screen,Urine PRESUMPTIVE NEGATIVE; Cocaine Screen,Urine PRESUMPTIVE NEGATIVE; Methadone Screen,Urine PRESUMPTIVE NEGATIVE; Opiate Screen,Urine PRESUMPTIVE NEGATIVE
[2019-09-14] MEDS ORDERED: POTASSIUM CHLORIDE ER 20 MEQ TAB PO ONE (00:55)
[2019-09-14] MEDS: levoFLOXacin 500 MG TAB PO SCH ×2 (01:01→12:24)
[2019-09-14 07:32] VITALS: BP 160/81
[2019-09-14] MEDS ORDERED: FENOFIBRATE 48 MG TAB PO SCH (10:00)
[2019-09-14] MEDS ORDERED: VALSARTAN 160MG TAB PO SCH (10:00)
[2019-09-14] MEDS ORDERED: MELATONIN 5 MG TAB PO SCH (22:00)
== END 2019-09-14 14:37 | disposition home or self-care (01) ==
LOC: ED 18:42
DX: R46.89 Other symptoms and signs involving appearance and behavior (principal); I10 Essential (primary) hypertension; E11.9 Type 2 diabetes mellitus without complications; Z04.6 Encounter for general psychiatric examination, requested by authority; Z79.899 Other long term (current) drug therapy
CPT/HCPCS: 36415; 70450; 71045; 80048; 80076; 80307; 80320; 81001; 82550; 83735; 85025; 93005; 93010; G0480

== ENCOUNTER 2019-10-06 22:53 | Emergency (ER) | payer MEDICARE ==
--- NOTE | 2019-10-06 23:15 | Emergency Department Report ---
ED Psych HPI - General Stated Complaint: SUICIDAL IDEATIONS - History of Present Illness Initial Comments: 69-year-old female the past medical history of schizophrenia, hypertension, and diabetes presents to the hospital with suicidal ideation. Patient arrives via EMS with no family at the bedside at this time. EMS reports that family was concerned because yesterday patient expressed suicidal ideation and wanting to . Today they found a knife in the patient's bedroom and called EMS 30 minutes prior to arrival to the ED. EMS reports that patient has been noncompliant with her medications. Patient states she does not have any medications to take and she is typically responsible for taking her pills on her own and they are not provided by her family members. Patient admits to auditory hallucinations but denies visual hallucinations. She denies physical complaints or pain. She states she does not know why she is here and currently denies suicidal homicidal ideation. When questioned why she had the knife in her bedroom she says "I do not know ". She is oriented alert and oriented x3. As per medical record review patient was just seen in the ED and admitted to [facility] ad was discharged on October 02. She was prescribed the following medications upon discharge as per [facility] Prescriptions: clonazePAM 0.5 mg PO QHS #30 traZODone [Desyrel] 50 mg PO QHS PRN #30 PRN Reason: Sleep Paliperidone Palmitate (Nf) [Invega Sustenna (Nf)] 156 mg IM QMONTH #1 ml Melatonin [Melatonin 5MG TAB] 5 mg PO QHS #30 tablet Benztropine [Cogentin] 0.5 mg PO BID #60 tablet Valsartan [Diovan] 1 tab PO DAILY #30 clonazePAM [KlonoPIN] 0.25 mg PO QAM #30 It is unclear why the patient is not taking the recently prescribed medications. - Related Data Home Medications Medication Instructions Recorded Confirmed Last Taken Fenofibrate Nanocrystallized 48 mg pe PO DAILY 06/17/19 09/14/19 Unknown [Fenofibrate] Previous Rx's Medication Instructions Recorded Last Taken Type Benztropine [Cogentin] 0.5 mg PO BID #60 tablet 10/03/19 Unknown Rx Melatonin [Melatonin 5MG TAB] 5 mg PO QHS #30 tablet 10/03/19 Unknown Rx Paliperidone Palmitate (Nf) 156 mg IM QMONTH #1 ml 10/03/19 Unknown Rx [Invega Sustenna (Nf)] Valsartan [Diovan] 1 tab PO DAILY #30 10/03/19 Unknown Rx clonazePAM 0.5 mg PO QHS #30 10/03/19 Unknown Rx clonazePAM [KlonoPIN] 0.25 mg PO QAM #30 10/03/19 Unknown Rx traZODone [Desyrel] 50 mg PO QHS PRN #30 10/03/19 Unknown Rx Allergies Allergy/AdvReac Type Severity Reaction Status Date / Time No Known Allergies Allergy Verified 09/17/15 10:37 ED Review of Systems ROS: Stated complaint: SUICIDAL IDEATIONS Other details as noted in HPI Comment: All other systems reviewed and negative ED Past Medical Hx - Past Medical History Hx Hypertension: Yes Hx Diabetes: Yes Hx Renal Disease: Yes Hx Arthritis: No Hx Seizures: No Hx Psychiatric Treatment: Yes (schizophrenia) Hx Dementia: Yes - Surgical History Hx Cholecystectomy: No Hx Appendectomy: No - Social History Smoking Status: Never Smoker Substance Use Type: None - Medications Home Medications: Home Medications Medication Instructions Recorded Confirmed Last Taken Type Fenofibrate Nanocrystallized 48 mg pe PO DAILY 06/17/19 09/14/19 Unknown History [Fenofibrate] Benztropine [Cogentin] 0.5 mg PO BID #60 tablet 10/03/19 Unknown Rx Melatonin [Melatonin 5MG TAB] 5 mg PO QHS #30 tablet 10/03/19 Unknown Rx Paliperidone Palmitate (Nf) 156 mg IM QMONTH #1 ml 10/03/19 Unknown Rx [Invega Sustenna (Nf)] Valsartan [Diovan] 1 tab PO DAILY #30 10/03/19 Unknown Rx clonazePAM 0.5 mg PO QHS #30 10/03/19 Unknown Rx clonazePAM [KlonoPIN] 0.25 mg PO QAM #30 10/03/19 Unknown Rx traZODone [Desyrel] 50 mg PO QHS PRN #30 10/03/19 Unknown Rx ED Physical Exam - Other Other exam information: General: No acute distress Head: Atraumatic Eyes: normal appearance ENT: Moist mucous membranes Neck: Normal appearance, no midline tenderness Chest: Clear to auscultation bilaterally CV: Regular rate and rhythm Abdomen: Soft, normal bowel sounds, nontender, nondistended, no rebound or guarding Back: Normal inspection Extremity: Normal inspection, full range of motion Neuro: Alert O x 3, no facial asymmetry, speech clear, no gross motor sensory deficit Psych: Appropriate behavior Skin: No rash Critical Care Time: No Critical care attestation.: If time is entered above; I have spent that time in minutes in the direct care of this critically ill patient, excluding procedure time. ED Disposition Condition: Stable
[2019-10-07 00:15] LABS: Basophils # (Auto) 0.1 K/mm3 (0.0-0.1); Basophils % (Auto) 0.9 % (0.0-1.8); Eosinophils # (Auto) 0.1 K/mm3 (0.0-0.4); Eosinophils % (Auto) 1.9 % (0.0-4.3); Hematocrit 32.8 % (30.3-42.9); Hemoglobin 11.1 gm/dl (10.1-14.3); Lymphocytes % (Auto) 30.5 % (13.4-35.0); Mean Corpuscular HGB Conc 34 % (30-34); Mean Corpuscular Volume 86 fl (79-97); Monocytes # (Auto) 0.4 K/mm3 (0.0-0.8); Monocytes % (Auto) 6.4 % (0.0-7.3); Platelet Count 231 K/mm3 (140-440); Red Blood Count 3.82 M/mm3 (3.65-5.03); Red Cell Distribution Width 14.7 % (13.2-15.2)
[2019-10-07 00:23] LABS: Bilirubin,Urine NEG (Negative); Blood,Urine NEG (Negative); Color,Urine Yellow (Yellow); Protein,Urine <15 mg/dL mg/dL (Negative); Urobilinogen,Urine < 2.0 mg/dL (<2.0); WBC,Urine < 1.0 /HPF (0.0-6.0)
[2019-10-07 00:30] LABS: Amphetamine Screen,Urine PRESUMPTIVE NEGATIVE; Benzodiazepines Screen,Urine PRESUMPTIVE NEGATIVE; Cannabinoid Screen,Urine PRESUMPTIVE NEGATIVE; Cocaine Screen,Urine PRESUMPTIVE NEGATIVE; Methadone Screen,Urine PRESUMPTIVE NEGATIVE; Opiate Screen,Urine PRESUMPTIVE NEGATIVE
[2019-10-07 00:35] LABS: BUN/Creatinine Ratio 16; Blood Urea Nitrogen 11 mg/dL (7-17); Calcium 9.7 mg/dL (8.4-10.2); Hemolysis Index 5
[2019-10-07 09:13] VITALS: BP 134/92
== END 2019-10-07 13:09 ==
LOC: ED 22:53 → EEVIPCON 22:53 → ED 10-07 13:09
DX: R45.851 Suicidal ideations (principal); I10 Essential (primary) hypertension; E11.9 Type 2 diabetes mellitus without complications; M19.90 Unspecified osteoarthritis, unspecified site; Z79.899 Other long term (current) drug therapy
CPT/HCPCS: 36415; 80048; 80307; 80320; 81001; 82962; 85025; G0480

== ENCOUNTER 2020-01-23 05:28 | Emergency (ER) | payer MEDICARE ==
[2020-01-23 06:56] LABS: Basophils % (Auto) 0.8 % (0.0-1.8); Eosinophils % (Auto) 0.9 % (0.0-4.3); Hematocrit 37.8 % (30.3-42.9); Hemoglobin 12.3 gm/dl (10.1-14.3); Lymphocytes # (Auto) 1.3 K/mm3 (1.2-5.4); Lymphocytes % (Auto) 25.7 % (13.4-35.0); Mean Corpuscular HGB Conc 33 % (30-34); Mean Corpuscular Volume 85 fl (79-97); Monocytes # (Auto) 0.3 K/mm3 (0.0-0.8); Monocytes % (Auto) 6.9 % (0.0-7.3); Platelet Count 192 K/mm3 (140-440); Red Blood Count 4.45 M/mm3 (3.65-5.03); Red Cell Distribution Width 14.7 % (13.2-15.2)
[2020-01-23 07:18] LABS: BUN/Creatinine Ratio 19; Blood Urea Nitrogen 15 mg/dL (7-17); Calcium 9.4 mg/dL (8.4-10.2); Hemolysis Index 3
--- NOTE | 2020-01-23 11:38 | Emergency Department Report ---
ED Psych HPI - General Chief Complaint: Psych Stated Complaint: MH Time Seen by Provider: 01/23/20 06:25 Source: EMS Mode of arrival: Stretcher Limitations: Other - History of Present Illness Initial Comments: 69-year-old female the past medical history of schizophrenia, hypertension, and diabetes presents to the hospital via EMS. Patient apparently was sent here from intermediate after being found outside in the dark and refusing to go back into the house. Patient was not speaking to staff members upon arrival. When I communicated with the patient in Telugu she denied any pain (via head nod). When I used the terra cotta mold maker she did refused to speak again. She is cooperative otherwise and nonviolent. Patient has presented here in the past and has required admission to [facility] psych - Related Data Home Medications Medication Instructions Recorded Confirmed Last Taken Fenofibrate Nanocrystallized 48 mg pe PO DAILY 06/17/19 10/07/19 Unknown [Fenofibrate] Previous Rx's Medication Instructions Recorded Last Taken Type Benztropine [Cogentin] 0.5 mg PO BID #60 tablet 10/03/19 Unknown Rx Melatonin [Melatonin 5MG TAB] 5 mg PO QHS #30 tablet 10/03/19 Unknown Rx Paliperidone Palmitate (Nf) 156 mg IM QMONTH #1 ml 10/03/19 Unknown Rx [Invega Sustenna (Nf)] Valsartan [Diovan] 1 tab PO DAILY #30 10/03/19 Unknown Rx clonazePAM 0.5 mg PO QHS #30 10/03/19 Unknown Rx clonazePAM [KlonoPIN] 0.25 mg PO QAM #30 10/03/19 Unknown Rx traZODone [Desyrel] 50 mg PO QHS PRN #30 10/03/19 Unknown Rx Allergies Allergy/AdvReac Type Severity Reaction Status Date / Time No Known Allergies Allergy Verified 09/17/15 10:37 ED Review of Systems ROS: Stated complaint: MH Other details as noted in HPI Comment: Unobtainable due to pts medical conditions ED Past Medical Hx - Past Medical History Hx Hypertension: Yes Hx Diabetes: Yes Hx Renal Disease: Yes Hx Arthritis: No Hx Seizures: No Hx Psychiatric Treatment: Yes (schizophrenia) Hx Dementia: Yes - Surgical History Hx Cholecystectomy: No Hx Appendectomy: No - Social History Smoking Status: Never Smoker Substance Use Type: None - Medications Home Medications: Home Medications Medication Instructions Recorded Confirmed Last Taken Type Fenofibrate Nanocrystallized 48 mg pe PO DAILY 06/17/19 10/07/19 Unknown History [Fenofibrate] Benztropine [Cogentin] 0.5 mg PO BID #60 tablet 10/03/19 10/07/19 Unknown Rx Melatonin [Melatonin 5MG TAB] 5 mg PO QHS #30 tablet 10/03/19 10/07/19 Unknown Rx Paliperidone Palmitate (Nf) 156 mg IM QMONTH #1 ml 10/03/19 10/07/19 Unknown Rx [Invega Sustenna (Nf)] Valsartan [Diovan] 1 tab PO DAILY #30 10/03/19 10/07/19 Unknown Rx clonazePAM 0.5 mg PO QHS #30 10/03/19 10/07/19 Unknown Rx clonazePAM [KlonoPIN] 0.25 mg PO QAM #30 10/03/19 10/07/19 Unknown Rx traZODone [Desyrel] 50 mg PO QHS PRN #30 10/03/19 10/07/19 Unknown Rx ED Physical Exam - General Limitations: Other - Other Other exam information: General: No acute distress Head: Atraumatic Eyes: normal appearance ENT: Moist mucous membranes Neck: Normal appearance, no midline tenderness Chest: Clear to auscultation bilaterally CV: Regular rate and rhythm Abdomen: Soft, normal bowel sounds, nontender, nondistended, no rebound or guarding Back: Normal inspection Extremity: Normal inspection, 5/5 upper and lower extremity strength Neuro: Alert nonverbal, no focal deficit Psych: Appropriate behavior Skin: No rash ED Course Vital Signs 01/23/20 01/23/20 05:37 10:01 Temperature 98.1 F 98.2 F Pulse Rate 88 77 Respiratory 18 18 Rate Blood Pressure 152/82 152/71 [left arm] O2 Sat by Pulse 94 99 Oximetry - Reevaluation(s) Reevaluation #1: 01/23/20 13:18 UA collection pending ED Medical Decision Making - Lab Data Result diagrams: 01/23/20 06:39 01/23/20 06:39 Lab Results 01/23/20 01/23/20 01/23/20 Range/Units 06:39 06:39 06:39 WBC 4.9 (4.5-11.0) K/mm3 RBC 4.45 (3.65-5.03) M/mm3 Hgb 12.3 (10.1-14.3) gm/dl Hct 37.8 (30.3-42.9) % MCV 85 (79-97) fl MCH 28 (28-32) pg MCHC 33 (30-34) % RDW 14.7 (13.2-15.2) % Plt Count 192 (140-440) K/mm3 Lymph % (Auto) 25.7 (13.4-35.0) % [place] % (Auto) 6.9 (0.0-7.3) % Eos % (Auto) 0.9 (0.0-4.3) % Baso % (Auto) 0.8 (0.0-1.8) % Lymph # 1.3 (1.2-5.4) K/mm3 [place] # 0.3 (0.0-0.8) K/mm3 Eos # 0.0 (0.0-0.4) K/mm3 Baso # 0.0 (0.0-0.1) K/mm3 Seg Neutrophils % 65.7 (40.0-70.0) % Seg Neutrophils # 3.2 (1.8-7.7) K/mm3 Sodium 140 (137-145) mmol/L Potassium 4.1 (3.6-5.0) mmol/L Chloride 105.2 (98-107) mmol/L Carbon Dioxide 22 (22-30) mmol/L Anion Gap 17 mmol/L BUN 15 (7-17) mg/dL Creatinine 0.8 (0.7-1.2) mg/dL Estimated GFR > 60 ml/min BUN/Creatinine Ratio 19 % Glucose 110 H (65-100) mg/dL Calcium 9.4 (8.4-10.2) mg/dL Salicylates < 0.3 L (2.8-20.0) mg/dL Acetaminophen (10.0-30.0) ug/mL Plasma/Serum Alcohol (0-0.07) % 01/23/20 01/23/20 Range/Units 06:39 06:39 WBC (4.5-11.0) K/mm3 RBC (3.65-5.03) M/mm3 Hgb (10.1-14.3) gm/dl Hct (30.3-42.9) % MCV (79-97) fl MCH (28-32) pg MCHC (30-34) % RDW (13.2-15.2) % Plt Count (140-440) K/mm3 Lymph % (Auto) (13.4-35.0) % [place] % (Auto) (0.0-7.3) % Eos % (Auto) (0.0-4.3) % Baso % (Auto) (0.0-1.8) % Lymph # (1.2-5.4) K/mm3 [place] # (0.0-0.8) K/mm3 Eos # (0.0-0.4) K/mm3 Baso # (0.0-0.1) K/mm3 Seg Neutrophils % (40.0-70.0) % Seg Neutrophils # (1.8-7.7) K/mm3 Sodium (137-145) mmol/L Potassium (3.6-5.0) mmol/L Chloride (98-107) mmol/L Carbon Dioxide (22-30) mmol/L Anion Gap mmol/L BUN (7-17) mg/dL Creatinine (0.7-1.2) mg/dL Estimated GFR ml/min BUN/Creatinine Ratio % Glucose (65-100) mg/dL Calcium (8.4-10.2) mg/dL Salicylates (2.8-20.0) mg/dL Acetaminophen < 5.0 L (10.0-30.0) ug/mL Plasma/Serum Alcohol < 0.01 (0-0.07) % - Medical Decision Making Patient presents and selectively speaking. Similar behavior in the past. Mental health evaluation requested pt is medically cleared Patient has been accepted to [facility] however recommended a COVID test prior to acceptance last meds on record will be continued pending transfer Critical Care Time: No Critical care attestation.: If time is entered above; I have spent that time in minutes in the direct care of this critically ill patient, excluding procedure time. ED Disposition Clinical Impression: Schizophrenia, Dementia, Medical clearance for psychiatric admission Disposition: DC/TX-65 PSY HOSP/PSY UNIT Is pt being admited?: No Condition: Stable
[2020-01-23] MEDS ORDERED: ZIPRASIDONE MESYLATE 20 MG VIAL IM ONE (13:41)
[2020-01-23 14:54] LABS: Bacteria,Urine 2+ /HPF (Negative); Bilirubin,Urine NEG (Negative); Blood,Urine NEG (Negative); Color,Urine Yellow (Yellow); Mucus,Urine 2+ /HPF; Protein,Urine <15 mg/dL mg/dL (Negative); RBC,Urine < 1.0 /HPF (0.0-6.0); Urobilinogen,Urine < 2.0 mg/dL (<2.0)
[2020-01-23 15:05] LABS: Amphetamine Screen,Urine PRESUMPTIVE NEGATIVE; Benzodiazepines Screen,Urine PRESUMPTIVE NEGATIVE; Cannabinoid Screen,Urine PRESUMPTIVE NEGATIVE; Cocaine Screen,Urine PRESUMPTIVE NEGATIVE; Methadone Screen,Urine PRESUMPTIVE NEGATIVE; Opiate Screen,Urine PRESUMPTIVE NEGATIVE
[2020-01-23] MEDS ORDERED: traZODone 50 MG TAB PO PRN (15:29)
[2020-01-23] MEDS ORDERED: clonazePAM 0.5 MG TAB PO SCH (22:00)
[2020-01-23] MEDS ORDERED: MELATONIN 5 MG TAB PO SCH (22:00)
[2020-01-23] MEDS: BENZTROPINE 0.5 MG TAB PO SCH (23:37)
[2020-01-24] MEDS: BENZTROPINE 0.5 MG TAB PO SCH (09:46)
[2020-01-24] MEDS ORDERED: clonazePAM 0.5 MG TAB PO SCH (10:00)
[2020-01-24] MEDS ORDERED: FENOFIBRATE 48 MG TAB PO SCH (10:00)
[2020-01-24] MEDS ORDERED: VALSARTAN 160MG TAB PO SCH (10:00)
[2020-01-24] MEDS ORDERED: ZIPRASIDONE MESYLATE 20 MG VIAL IM ONE ×2 (12:53→12:55)
[2020-01-24 17:30] VITALS: BP 115/70
== END 2020-01-24 17:28 ==
LOC: ED 05:28
DX: F20.89 Other schizophrenia (principal); F03.90 Unspecified dementia, unspecified severity, without behavioral disturbance, psychotic disturbance, mood disturbance, and anxiety
CPT/HCPCS: 36415; 80048; 80307; 81001; 85025; 96372; 99285; J3486; U0003; 80320; G0480

== ENCOUNTER 2020-03-06 22:21 | Emergency (ER) | payer MEDICARE ==
[2020-03-07 00:04] LABS: Basophils % (Auto) 0.6 % (0.0-1.8); Eosinophils # (Auto) 0.1 K/mm3 (0.0-0.4); Eosinophils % (Auto) 1.5 % (0.0-4.3); Hemoglobin 10.9 gm/dl (10.1-14.3); Lymphocytes # (Auto) 1.4 K/mm3 (1.2-5.4); Lymphocytes % (Auto) 21.6 % (13.4-35.0); Mean Corpuscular HGB Conc 33 % (30-34); Mean Corpuscular Volume 85 fl (79-97); Monocytes # (Auto) 0.4 K/mm3 (0.0-0.8); Monocytes % (Auto) 6.9 % (0.0-7.3); Platelet Count 196 K/mm3 (140-440); Red Blood Count 3.89 M/mm3 (3.65-5.03); Red Cell Distribution Width 15.2 % (13.2-15.2)
[2020-03-07 00:19] LABS: Blood Urea Nitrogen 7 mg/dL (7-17); Calcium 9.2 mg/dL (8.4-10.2); Hemolysis Index 3
[2020-03-07 00:44] LABS: BUN/Creatinine Ratio 12
[2020-03-07] MEDS ORDERED: POTASSIUM CHLORIDE ER 20 MEQ TAB PO ONE (01:32)
--- NOTE | 2020-03-07 02:16 | XRay Report ---
CHEST 1 VIEW INDICATION: chest pain. COMPARISON: 09/13/2019 FINDINGS: Support devices: None. Heart: Within normal limits. Lungs/Pleura: Increased markings left base unchanged from previous exam and likely vascular. No acute infiltrate. Additional findings: None. IMPRESSION: Stable chest. Signer Name: Kadeem Cornejo MD Signed: 03/07/2020 2:11 AM Workstation Name: [id number]
[2020-03-07] MEDS ORDERED: cloNIDine 0.1 MG TAB PO ONE (02:34)
--- NOTE | 2020-03-07 03:42 | Emergency Department Report ---
ED General Adult HPI - General Chief complaint: High BP Stated complaint: HIGH BP Time Seen by Provider: 03/06/20 22:51 Source: EMS Mode of arrival: Stretcher Limitations: Language Barrier - History of Present Illness Initial comments: 69-year-old female, history of dementia, hypertension, CVA, presents to ED via EMS. Patient apparently locked herself in her room. According to patient's sister, patient was complaining of chest pain earlier. EMS reports patient's blood pressure was elevated at the scene, so decided to transport to ED. Patient is Greek-speaking. She denies any chest pain, trouble breathing, headache, vomiting, abdominal pain. -: This evening Associated Symptoms: denies other symptoms. denies: chest pain, fever/chills, headaches, nausea/vomiting, shortness of breath - Related Data Home Medications Medication Instructions Recorded Confirmed Last Taken Fenofibrate Nanocrystallized 48 mg pe PO DAILY 06/17/19 01/24/20 Unknown [Fenofibrate] risperiDONE [RisperDAL] 01/24/20 Unknown Previous Rx's Medication Instructions Recorded Last Taken Type Benztropine [Cogentin] 0.5 mg PO BID #60 tablet 10/03/19 Unknown Rx Melatonin [Melatonin 5MG TAB] 5 mg PO QHS #30 tablet 10/03/19 Unknown Rx Paliperidone Palmitate (Nf) 156 mg IM QMONTH #1 ml 10/03/19 Unknown Rx [Invega Sustenna (Nf)] Valsartan [Diovan] 1 tab PO DAILY #30 10/03/19 Unknown Rx clonazePAM 0.5 mg PO QHS #30 10/03/19 Unknown Rx clonazePAM [KlonoPIN] 0.25 mg PO QAM #30 10/03/19 Unknown Rx traZODone [Desyrel] 50 mg PO QHS PRN #30 10/03/19 Unknown Rx Allergies Allergy/AdvReac Type Severity Reaction Status Date / Time No Known Allergies Allergy Verified 09/17/15 10:37 ED Review of Systems ROS: Stated complaint: HIGH BP Other details as noted in HPI Comment: All other systems reviewed and negative Respiratory: denies: shortness of breath Cardiovascular: denies: chest pain Gastrointestinal: denies: abdominal pain, nausea, vomiting, diarrhea Neurological: denies: headache ED Past Medical Hx - Past Medical History Previous Medical History?: Yes Hx Hypertension: Yes Hx Diabetes: Yes Hx Renal Disease: Yes Hx Arthritis: No Hx Seizures: No Hx Psychiatric Treatment: Yes (schizophrenia, paranoia) Hx Dementia: Yes - Surgical History Past Surgical History?: No Hx Cholecystectomy: No Hx Appendectomy: No - Social History Smoking Status: Never Smoker Substance Use Type: None - Medications Home Medications: Home Medications Medication Instructions Recorded Confirmed Last Taken Type Fenofibrate Nanocrystallized 48 mg pe PO DAILY 06/17/19 01/24/20 Unknown History [Fenofibrate] Benztropine [Cogentin] 0.5 mg PO BID #60 tablet 10/03/19 01/24/20 Unknown Rx Melatonin [Melatonin 5MG TAB] 5 mg PO QHS #30 tablet 10/03/19 01/24/20 Unknown Rx Paliperidone Palmitate (Nf) 156 mg IM QMONTH #1 ml 10/03/19 10/07/19 Unknown Rx [Invega Sustenna (Nf)] Valsartan [Diovan] 1 tab PO DAILY #30 10/03/19 01/24/20 Unknown Rx clonazePAM 0.5 mg PO QHS #30 10/03/19 01/24/20 Unknown Rx clonazePAM [KlonoPIN] 0.25 mg PO QAM #30 10/03/19 01/24/20 Unknown Rx traZODone [Desyrel] 50 mg PO QHS PRN #30 10/03/19 01/24/20 Unknown Rx risperiDONE [RisperDAL] 01/24/20 Unknown History ED Physical Exam - General Limitations: Language Barrier General appearance: alert, in no apparent distress - Head Head exam: Present: atraumatic, normocephalic - Eye Eye exam: Present: normal appearance, EOMI - ENT ENT exam: Present: mucous membranes moist - Neck Neck exam: Present: normal inspection - Respiratory Respiratory exam: Present: normal lung sounds bilaterally. Absent: respiratory distress - Cardiovascular Cardiovascular Exam: Present: regular rate, normal rhythm - GI/Abdominal GI/Abdominal exam: Present: soft. Absent: distended, tenderness - Extremities Exam Extremities exam: Present: normal inspection - Neurological Exam Neurological exam: Present: alert. Absent: oriented X3 - Psychiatric Psychiatric exam: Present: normal affect, normal mood - Skin Skin exam: Present: warm, dry, intact, normal color ED Course Vital Signs 03/06/20 03/06/20 03/06/20 22:44 22:45 22:54 Pulse Rate 64 58 L 61 Respiratory 14 18 16 Rate Blood Pressure Blood Pressure 186/74 [Left] O2 Sat by Pulse 99 Oximetry 03/06/20 03/06/20 03/06/20 23:00 23:15 23:30 Pulse Rate 54 L 67 61 Respiratory 13 15 19 Rate Blood Pressure 184/80 190/83 196/86 Blood Pressure [Left] O2 Sat by Pulse 97 98 97 Oximetry 03/06/20 03/07/20 03/07/20 23:41 00:00 00:30 Pulse Rate 56 L 53 L 56 L Respiratory 21 11 L 15 Rate Blood Pressure 196/86 188/86 191/85 Blood Pressure [Left] O2 Sat by Pulse 99 97 97 Oximetry 03/07/20 03/07/20 03/07/20 01:00 01:30 02:00 Pulse Rate 52 L 54 L 56 L Respiratory 19 11 L 14 Rate Blood Pressure 185/80 187/82 190/84 Blood Pressure [Left] O2 Sat by Pulse 97 96 96 Oximetry 03/07/20 03/07/20 03/07/20 02:30 02:43 03:00 Pulse Rate 62 66 58 L Respiratory 20 21 Rate Blood Pressure 181/75 185/80 179/88 Blood Pressure [Left] O2 Sat by Pulse 97 98 Oximetry 03/07/20 03/07/20 03:31 04:01 Pulse Rate 56 L 46 L Respiratory 20 9 L Rate Blood Pressure 179/88 164/61 Blood Pressure [Left] O2 Sat by Pulse 99 94 Oximetry ED Medical Decision Making - Lab Data Result diagrams: 03/06/20 23:47 03/06/20 23:47 - EKG Data -: EKG Interpreted by Ks EKG shows normal: sinus rhythm, axis, intervals, QRS complexes Rate: normal - EKG Data Interpretation: nonspecific ST-T wave harsha - Radiology Data Radiology results: report reviewed, image reviewed - Medical Decision Making 69-year-old female presents to ED from senior living. Patient apparently locked herself in her room. Sister states patient at some point complained of chest pain, however patient currently denies. Work-up is unremarkable except for elevated blood pressure. Patient given clonidine 0.1 mg with improvement of blood pressure. EKG shows no ST changes, troponin negative x2. Chest x-ray is normal. Patient will be discharged home at this time, with instructions to follow-up with PCP for BP management. - Differential Diagnosis ACS, infection, electrolyte abnormality Critical care attestation.: If time is entered above; I have spent that time in minutes in the direct care of this critically ill patient, excluding procedure time. ED Disposition Clinical Impression: Uncontrolled hypertension Disposition: DC-01 TO HOME OR SELFCARE Is pt being admited?: No Condition: Stable Instructions: Hypertension (ED) Referrals: PRIMARY CARE, [Primary Care Provider] - 3-5 Days Time of Disposition: 03:42
[2020-03-08 07:28] VITALS: BP 157/64
== END 2020-03-08 08:46 | disposition other institution (70) ==
LOC: ED 22:21
DX: I10 Essential (primary) hypertension (principal); R07.89 Other chest pain; E11.9 Type 2 diabetes mellitus without complications; F20.9 Schizophrenia, unspecified; F03.90 Unspecified dementia, unspecified severity, without behavioral disturbance, psychotic disturbance, mood disturbance, and anxiety; Z79.899 Other long term (current) drug therapy
CPT/HCPCS: 36415; 71045; 80048; 84484; 85025; 93005

== ENCOUNTER 2020-10-05 05:55 | Emergency (ER) | payer MEDICARE ==
--- NOTE | 2020-10-05 06:30 | Emergency Department Report ---
ED General Adult HPI - General Chief complaint: Psych Stated complaint: AMS Time Seen by Provider: 10/05/20 06:19 Source: EMS Mode of arrival: Stretcher Limitations: Other - History of Present Illness Initial comments: The patient presents to the emergency department via EMS for psychiatric evaluation. Patient has a history of schizophrenia who has reportedly not taken her medications in the last 3 days. The patient's caregiver states the patient has been very combative at home and difficult to maintain. Patient also became very combative with EMS and had to be given Haldol prior to arrival. -: Gradual, days(s) (3) Severity scale (0 -10): 0 Consistency: constant Improves with: none Worsens with: none Associated Symptoms: denies other symptoms Treatments Prior to Arrival: none - Related Data Home Medications Medication Instructions Recorded Confirmed Last Taken Fenofibrate Nanocrystallized 48 mg pe PO DAILY 06/17/19 01/24/20 Unknown [Fenofibrate] risperiDONE [RisperDAL] 01/24/20 Unknown Previous Rx's Medication Instructions Recorded Last Taken Type Benztropine [Cogentin] 0.5 mg PO BID #60 tablet 10/03/19 Unknown Rx Melatonin [Melatonin 5MG TAB] 5 mg PO QHS #30 tablet 10/03/19 Unknown Rx Paliperidone Palmitate [Invega 156 mg IM QMONTH #1 ml 10/03/19 Unknown Rx Sustenna (Nf)] Valsartan [Diovan] 1 tab PO DAILY #30 10/03/19 Unknown Rx clonazePAM 0.5 mg PO QHS #30 10/03/19 Unknown Rx clonazePAM [KlonoPIN] 0.25 mg PO QAM #30 10/03/19 Unknown Rx traZODone [Desyrel] 50 mg PO QHS PRN #30 10/03/19 Unknown Rx Allergies Allergy/AdvReac Type Severity Reaction Status Date / Time No Known Allergies Allergy Verified 09/17/15 10:37 ED Review of Systems ROS: Stated complaint: AMS Other details as noted in HPI Comment: Unobtainable due to pts medical conditions ED Past Medical Hx - Past Medical History Previous Medical History?: Yes Hx Hypertension: Yes Hx Diabetes: Yes Hx Renal Disease: Yes Hx Arthritis: No Hx Seizures: No Hx Psychiatric Treatment: Yes (schizophrenia, paranoia) Hx Dementia: Yes - Surgical History Hx Cholecystectomy: No Hx Appendectomy: No - Social History Smoking Status: Unknown if ever smoked Substance Use Type: None - Medications Home Medications: Home Medications Medication Instructions Recorded Confirmed Last Taken Type Fenofibrate Nanocrystallized 48 mg pe PO DAILY 06/17/19 01/24/20 Unknown History [Fenofibrate] Benztropine [Cogentin] 0.5 mg PO BID #60 tablet 10/03/19 01/24/20 Unknown Rx Melatonin [Melatonin 5MG TAB] 5 mg PO QHS #30 tablet 10/03/19 01/24/20 Unknown Rx Paliperidone Palmitate [Invega 156 mg IM QMONTH #1 ml 10/03/19 10/07/19 Unknown Rx Sustenna (Nf)] Valsartan [Diovan] 1 tab PO DAILY #30 10/03/19 01/24/20 Unknown Rx clonazePAM 0.5 mg PO QHS #30 10/03/19 01/24/20 Unknown Rx clonazePAM [KlonoPIN] 0.25 mg PO QAM #30 10/03/19 01/24/20 Unknown Rx traZODone [Desyrel] 50 mg PO QHS PRN #30 10/03/19 01/24/20 Unknown Rx risperiDONE [RisperDAL] 01/24/20 Unknown History ED Physical Exam - General Limitations: Other General appearance: alert, in no apparent distress, other (Patient exhibits movements consistent with tardive dyskinesia) - Head Head exam: Present: atraumatic, normocephalic - Eye Eye exam: Present: normal appearance - ENT ENT exam: Present: mucous membranes dry - Neck Neck exam: Present: normal inspection - Respiratory Respiratory exam: Present: normal lung sounds bilaterally. Absent: respiratory distress - Cardiovascular Cardiovascular Exam: Present: regular rate, normal rhythm. Absent: systolic murmur, diastolic murmur, rubs, gallop - GI/Abdominal GI/Abdominal exam: Present: soft, normal bowel sounds. Absent: distended, tenderness - Extremities Exam Extremities exam: Present: normal inspection - Back Exam Back exam: Present: normal inspection - Neurological Exam Neurological exam: Present: alert, other (Patient would not participate in physical exam) - Psychiatric Psychiatric exam: Present: other (Not able to assess due to the patient's condition) - Skin Skin exam: Present: warm, dry, intact, normal color. Absent: rash ED Course Vital Signs 10/05/20 10/05/20 06:17 06:19 Temperature 98.7 F Pulse Rate 98 H Respiratory 20 20 Rate Blood Pressure 149/70 [Right] O2 Sat by Pulse 97 Oximetry ED Medical Decision Making - Lab Data Result diagrams: 10/05/20 06:36 10/05/20 14:05 Lab Results 10/05/20 10/05/20 10/05/20 Range/Units 06:36 06:36 06:36 WBC 8.0 (4.5-11.0) K/mm3 RBC 3.61 L (3.65-5.03) M/mm3 Hgb 10.5 (10.1-14.3) gm/dl Hct 31.5 (30.3-42.9) % MCV 87 (79-97) fl MCH 29 (28-32) pg MCHC 33 (30-34) % RDW 13.8 (13.2-15.2) % Plt Count 213 (140-440) K/mm3 Lymph % (Auto) 11.7 L (13.4-35.0) % [place] % (Auto) 7.3 (0.0-7.3) % Eos % (Auto) 0.1 (0.0-4.3) % Baso % (Auto) 0.5 (0.0-1.8) % Lymph # (Auto) 0.9 L (1.2-5.4) K/mm3 [place] # (Auto) 0.6 (0.0-0.8) K/mm3 Eos # (Auto) 0.0 (0.0-0.4) K/mm3 Baso # (Auto) 0.0 (0.0-0.1) K/mm3 Seg Neutrophils % 80.4 H (40.0-70.0) % Seg Neutrophils # 6.5 (1.8-7.7) K/mm3 Sodium (137-145) mmol/L Potassium (3.6-5.0) mmol/L Chloride (98-107) mmol/L Carbon Dioxide (22-30) mmol/L Anion Gap mmol/L BUN (7-17) mg/dL Creatinine (0.6-1.2) mg/dL Estimated GFR ml/min BUN/Creatinine Ratio % Glucose (65-100) mg/dL Calcium (8.4-10.2) mg/dL Total Bilirubin (0.1-1.2) mg/dL AST (5-40) units/L ALT (7-56) units/L Alkaline Phosphatase (35-129) units/L Total Protein (6.3-8.2) g/dL Albumin (3.9-5) g/dL Albumin/Globulin Ratio % Salicylates < 0.3 L (2.8-20.0) mg/dL Acetaminophen 5.0 L (10.0-30.0) ug/mL Plasma/Serum Alcohol (0-0.07) % Coronavirus (PCR) (Negative) 10/05/20 10/05/20 10/05/20 Range/Units 06:36 06:36 08:31 WBC (4.5-11.0) K/mm3 RBC (3.65-5.03) M/mm3 Hgb (10.1-14.3) gm/dl Hct (30.3-42.9) % MCV (79-97) fl MCH (28-32) pg MCHC (30-34) % RDW (13.2-15.2) % Plt Count (140-440) K/mm3 Lymph % (Auto) (13.4-35.0) % [place] % (Auto) (0.0-7.3) % Eos % (Auto) (0.0-4.3) % Baso % (Auto) (0.0-1.8) % Lymph # (Auto) (1.2-5.4) K/mm3 [place] # (Auto) (0.0-0.8) K/mm3 Eos # (Auto) (0.0-0.4) K/mm3 Baso # (Auto) (0.0-0.1) K/mm3 Seg Neutrophils % (40.0-70.0) % Seg Neutrophils # (1.8-7.7) K/mm3 Sodium 137 (137-145) mmol/L Potassium 2.8 L* (3.6-5.0) mmol/L Chloride 101.6 (98-107) mmol/L Carbon Dioxide 21 L (22-30) mmol/L Anion Gap 17 mmol/L BUN 12 (7-17) mg/dL Creatinine 0.8 (0.6-1.2) mg/dL Estimated GFR > 60 ml/min BUN/Creatinine Ratio 15 % Glucose 81 (65-100) mg/dL Calcium 9.1 (8.4-10.2) mg/dL Total Bilirubin 0.40 (0.1-1.2) mg/dL AST 61 H (5-40) units/L ALT 24 (7-56) units/L Alkaline Phosphatase 62 (35-129) units/L Total Protein 6.6 (6.3-8.2) g/dL Albumin 3.9 (3.9-5) g/dL Albumin/Globulin Ratio 1.4 % Salicylates (2.8-20.0) mg/dL Acetaminophen (10.0-30.0) ug/mL Plasma/Serum Alcohol < 0.01 (0-0.07) % Coronavirus (PCR) Negative (Negative) 10/05/20 Range/Units 14:05 WBC (4.5-11.0) K/mm3 RBC (3.65-5.03) M/mm3 Hgb (10.1-14.3) gm/dl Hct (30.3-42.9) % MCV (79-97) fl MCH (28-32) pg MCHC (30-34) % RDW (13.2-15.2) % Plt Count (140-440) K/mm3 Lymph % (Auto) (13.4-35.0) % [place] % (Auto) (0.0-7.3) % Eos % (Auto) (0.0-4.3) % Baso % (Auto) (0.0-1.8) % Lymph # (Auto) (1.2-5.4) K/mm3 [place] # (Auto) (0.0-0.8) K/mm3 Eos # (Auto) (0.0-0.4) K/mm3 Baso # (Auto) (0.0-0.1) K/mm3 Seg Neutrophils % (40.0-70.0) % Seg Neutrophils # (1.8-7.7) K/mm3 Sodium (137-145) mmol/L Potassium 3.6 D (3.6-5.0) mmol/L Chloride (98-107) mmol/L Carbon Dioxide (22-30) mmol/L Anion Gap mmol/L BUN (7-17) mg/dL Creatinine (0.6-1.2) mg/dL Estimated GFR ml/min BUN/Creatinine Ratio % Glucose (65-100) mg/dL Calcium (8.4-10.2) mg/dL Total Bilirubin (0.1-1.2) mg/dL AST (5-40) units/L ALT (7-56) units/L Alkaline Phosphatase (35-129) units/L Total Protein (6.3-8.2) g/dL Albumin (3.9-5) g/dL Albumin/Globulin Ratio % Salicylates (2.8-20.0) mg/dL Acetaminophen (10.0-30.0) ug/mL Plasma/Serum Alcohol (0-0.07) % Coronavirus (PCR) (Negative) - Medical Decision Making Patient was evaluated by psychiatry staff with the psychiatrist and they deemed the patient is not a candidate for inpatient psychiatric treatment. Please see their note for further detail Critical care attestation.: If time is entered above; I have spent that time in minutes in the direct care o f this critically ill patient, excluding procedure time. ED Disposition Clinical Impression: Aggressive behavior Disposition: DC-01 TO HOME OR SELFCARE Is pt being admited?: No Does the pt Need Aspirin: No Condition: Stable Additional Instructions: OUTPATIENT MENTAL HEALTH RESOURCES [facility], [facility] Vaughn Mac MD: [address] [place] [address] [place] [address] [facility]: [employer] [address] [place] [address] [place] [address] [phone] [facility]: [facility]: [address] [place] [address] [facility] [id number] [facility]: Judah Munoz MD: [id number] [facility] [address] [facility] [id number] [facility]: [address] [place], [place] [id number] [phone] [place] CRISIS AND ACCESS LINE: Referrals: PRIMARY CARE, [Primary Care Provider] - 3-5 Days [facility] [Outside] - 3-5 Days Time of Disposition: 15:16
[2020-10-05 07:05] LABS: Basophils % (Auto) 0.5 % (0.0-1.8); Eosinophils % (Auto) 0.1 % (0.0-4.3); Hematocrit 31.5 % (30.3-42.9); Hemoglobin 10.5 gm/dl (10.1-14.3); Lymphocytes # (Auto) 0.9 K/mm3 (1.2-5.4); Lymphocytes % (Auto) 11.7 % (13.4-35.0); Mean Corpuscular HGB Conc 33 % (30-34); Mean Corpuscular Volume 87 fl (79-97); Monocytes # (Auto) 0.6 K/mm3 (0.0-0.8); Monocytes % (Auto) 7.3 % (0.0-7.3); Platelet Count 213 K/mm3 (140-440); Red Blood Count 3.61 M/mm3 (3.65-5.03); Red Cell Distribution Width 13.8 % (13.2-15.2)
[2020-10-05 07:09] LABS: Alanine Aminotransferase 24 units/L (7-56); Albumin 3.9 g/dL (3.9-5); BUN/Creatinine Ratio 15; Blood Urea Nitrogen 12 mg/dL (7-17); Calcium 9.1 mg/dL (8.4-10.2); Hemolysis Index 7
[2020-10-05] MEDS ORDERED: POTASSIUM CHLORIDE ER 20 MEQ TAB PO ONE (08:35)
--- NOTE | 2020-10-05 11:18 | Consultation ---
History of Present Illness - Reason for Consult Consult date: 10/05/20 Reason for consult: MHE Requesting physician: YURIDIA VELÁSQUEZ - History of Present Psychiatric Illness Per ED Provider: The patient presents to the emergency department via EMS for psychiatric evaluation. Patient has a history of schizophrenia who has reportedly not taken her medications in the last 3 days. The patient's caregiver states the patient has been very combative at home and difficult to maintain. Patient also became very combative with EMS and had to be given Haldol prior to arrival. PSYCH HPI Patient seen in room, mute, alert to verbal responses but no response and not cooperative, similar behavior documented in past, as detailed below. From previous psych encounter: Ms. Ibarra is a 69-year-old female, the patient appears calm and cooperative, she is dressed appropriately for the occasion, she maintains intermittent eye contact, the patient refused to converse with this automatic typewriter inspector. hourly sign language interpreter line was used to talk with the patient, the patient refused to talk to the certified court interpreter and got up and walked away. Unable to get further information will continue to monitor. Spoke to the patient's sister who is her POA and her nephew who states, that the patient lives with them and they are unable to take care of the patient they report that the patient was admitted at [facility] 2 to 3 months ago and she since she has been home she has never taken her medication patient is very combative they report the patient throwing things about hitting her sister just been very aggressive. The family is requesting long-term patient care for the patient as they are unable to care for the patient anymore. They report that the patient is noncompliant with medication and each time she comes home she refuse to take any medication or go to any appointments. PAST PSYCHIATRIC HISTORY n/a PAST MEDICAL HISTORY: Family Psychiatric History: None reported or documented SOCIAL HISTORY n/a REVIEW OF SYSTEMS ROS cannot be reliably obtained from the patient due to her muteness MENTAL STATUS EXAMINATION General Appearance and Behavior: Age appropriate, good hygiene, wearing appropriate clothes, good eye contact, uncooperative with questioning. Cooperation: Withdrawn Psychomotor Behavior: unremarkable and within normal limits Mood: Neutral Affect and affective range: Flat Thought Process:N/A Thought Content: N/A Speech: Normal volume, Regular rate and rhythm Intellectual Functioning: N/A Suicidal Ideation: N/A l Homicidal Ideation: N/A Impulse Control: Impaired Insight and Judgment: Impaired Memory: N/A Attention: Normal, Orientation: Alert Diagnoses: Treatment Plan Patient not communicative, labs reviewed, electrolyte abnormality. Do not see acute psychiatric need at this time. Defer management to medicine. Can reconsult if an acute need is seen after further medical management MEDICATIONS: Risks, benefits and alternatives of medications discussed with the patient, questions answered and consent obtained from patient. PSYCHOTHERAPY: Supportive psychotherapy provided MEDICAL: Per primary team DELIRIUM PRECAUTIONS: Please re-orient patient frequently, keep lights on during the day, and minimize benzodiazepines and opiates as these medications could worsen patient's confusion. 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 Case discussed with Dr. Montero who agrees with current disposition LEGAL STATUS: voluntary FOLLOW-UP: Will sign off Thank you for the consult. Please contact with any questions and/or concerns. Medications and Allergies Allergies Allergy/AdvReac Type Severity Reaction Status Date / Time No Known Allergies Allergy Verified 09/17/15 10:37 Home Medications Medication Instructions Recorded Confirmed Last Taken Type Fenofibrate Nanocrystallized 48 mg pe PO DAILY 06/17/19 01/24/20 Unknown History [Fenofibrate] Benztropine [Cogentin] 0.5 mg PO BID #60 tablet 10/03/19 01/24/20 Unknown Rx Melatonin [Melatonin 5MG TAB] 5 mg PO QHS #30 tablet 10/03/19 01/24/20 Unknown Rx Paliperidone Palmitate [Invega 156 mg IM QMONTH #1 ml 10/03/19 10/07/19 Unknown Rx Sustenna (Nf)] Valsartan [Diovan] 1 tab PO DAILY #30 10/03/19 01/24/20 Unknown Rx clonazePAM 0.5 mg PO QHS #30 10/03/19 01/24/20 Unknown Rx clonazePAM [KlonoPIN] 0.25 mg PO QAM #30 10/03/19 01/24/20 Unknown Rx traZODone [Desyrel] 50 mg PO QHS PRN #30 10/03/19 01/24/20 Unknown Rx risperiDONE [RisperDAL] 01/24/20 Unknown History Mental Status Exam - Vital signs Last Vital Signs Temp 98.7 F 10/05/20 06:17 Pulse 98 H 10/05/20 06:17 Resp 20 10/05/20 06:19 BP 149/70 10/05/20 06:17 Pulse Ox 97 10/05/20 06:17 Results Result Diagrams: 10/05/20 06:36 10/05/20 06:36 Abnormal lab results 10/05/20 10/05/20 10/05/20 Range/Units 06:36 06:36 06:36 RBC 3.61 L (3.65-5.03) M/mm3 Lymph % (Auto) 11.7 L (13.4-35.0) % Lymph # (Auto) 0.9 L (1.2-5.4) K/mm3 Seg Neutrophils % 80.4 H (40.0-70.0) % Potassium (3.6-5.0) mmol/L Carbon Dioxide (22-30) mmol/L AST (5-40) units/L Salicylates < 0.3 L (2.8-20.0) mg/dL Acetaminophen 5.0 L (10.0-30.0) ug/mL 10/05/20 Range/Units 06:36 RBC (3.65-5.03) M/mm3 Lymph % (Auto) (13.4-35.0) % Lymph # (Auto) (1.2-5.4) K/mm3 Seg Neutrophils % (40.0-70.0) % Potassium 2.8 L* (3.6-5.0) mmol/L Carbon Dioxide 21 L (22-30) mmol/L AST 61 H (5-40) units/L Salicylates (2.8-20.0) mg/dL Acetaminophen (10.0-30.0) ug/mL All other labs normal.
[2020-10-06] MEDS ORDERED: ZIPRASIDONE MESYLATE 20 MG VIAL IM ONE (03:04)
--- NOTE | 2020-10-09 12:52 | Event Note ---
Date: 10/09/20 The patient was evaluated in the emergency department for symptoms described in the history of present illness. He/she was evaluated in the context of the global COVID-19 pandemic, which necessitated consideration that the patient might be at risk for infection with the virus that causes COVID-19. Institutional protocols and algorithms that pertain to the evaluation of patients at risk for COVID-19 are in a state of rapid change based on information released by regulatory bodies including the CDC and federal and state organizations. These policies and algorithms were followed during the patient's care in the emergency department. Please note that these policies, procedures and recommendations changed on a rapid basis. Family requesting psychiatric recommendations for initiation of outpatient antipsychotic medications. Review of old chart indicates that patient has been on Klonopin, Clozaril, and Risperdal. Most recent psychiatric recommendation assessment does not indicate will medications are necessary/indicated, if any. Therefore, we have reordered a psychiatric consultation to make recommendations on outpatient medications, so family feels comfortable to take patient home, and arrange appropriate safe outpatient disposition.
[2020-10-10] MEDS ORDERED: LORazepam 2 MG/ML VIAL IM ONE (12:12)
--- NOTE | 2020-10-10 13:33 | Consultation ---
History of Present Illness - Reason for Consult Consult date: 10/10/20 Reason for consult: MHE Requesting physician: ADAM ALCALA - History of Present Psychiatric Illness Per ED Provider: The patient presents to the emergency department via EMS for psychiatric evaluation. Patient has a history of schizophrenia who has reportedly not taken her medications in the last 3 days. The patient's caregiver states the patient has been very combative at home and difficult to maintain. Patient also became very combative with EMS and had to be given Haldol prior to arrival. PSYCH HPI Patient not in room today. Medication reviewed and reconciled. From previous psych encounter: Ms. Ibarra is a 69-year-old female, the patient appears calm and cooperative, she is dressed appropriately for the occasion, she maintains intermittent eye contact, the patient refused to converse with this literary writer. interpreter line was used to talk with the patient, the patient refused to talk to the tourist guide and got up and walked away. Unable to get further information will continue to monitor. Spoke to the patient's sister who is her POA and her nephew who states, that the patient lives with them and they are unable to take care of the patient they report that the patient was admitted at [facility] 2 to 3 months ago and she since she has been home she has never taken her medication patient is very combative they report the patient throwing things about hitting her sister just been very aggressive. The family is requesting long-term patient care for the patient as they are unable to care for the patient anymore. They report that the patient is noncompliant with medication and each time she comes home she refuse to take any medication or go to any appointments. PAST PSYCHIATRIC HISTORY n/a PAST MEDICAL HISTORY: Family Psychiatric History: None reported or documented SOCIAL HISTORY n/a REVIEW OF SYSTEMS ROS cannot be reliably obtained from the patient due to her muteness MENTAL STATUS EXAMINATION General Appearance and Behavior: Age appropriate, good hygiene, wearing appropriate clothes, good eye contact, uncooperative with questioning. Cooperation: Withdrawn Psychomotor Behavior: unremarkable and within normal limits Mood: Neutral Affect and affective range: Flat Thought Process:N/A Thought Content: N/A Speech: Normal volume, Regular rate and rhythm Intellectual Functioning: N/A Suicidal Ideation: N/A l Homicidal Ideation: N/A Impulse Control: Impaired Insight and Judgment: Impaired Memory: N/A Attention: Normal, Orientation: Alert Diagnoses: Treatment Plan Patient still not communicative, will provide prescription for 1 month based on previous psychiatric medication on file but recommend patient to follow-up with her outpatient psychiatrist at this time for further management. MEDICATIONS: Risks, benefits and alternatives of medications discussed with the patient, questions answered and consent obtained from patient. PSYCHOTHERAPY: Supportive psychotherapy provided MEDICAL: Per primary team DELIRIUM PRECAUTIONS: Please re-orient patient frequently, keep lights on during the day, and minimize benzodiazepines and opiates as these medications could worsen patient's confusion. 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 Case discussed with Dr. Montero who agrees with current disposition LEGAL STATUS: voluntary FOLLOW-UP: Will sign off Thank you for the consult. Please contact with any questions and/or concerns. Medications and Allergies Allergies Allergy/AdvReac Type Severity Reaction Status Date / Time No Known Allergies Allergy Verified 09/17/15 10:37 Home Medications Medication Instructions Recorded Confirmed Last Taken Type Fenofibrate Nanocrystallized 48 mg pe PO DAILY 06/17/19 01/24/20 Unknown History [Fenofibrate] Benztropine [Cogentin] 0.5 mg PO BID #60 tablet 10/03/19 01/24/20 Unknown Rx Paliperidone Palmitate [Invega 156 mg IM QMONTH #1 ml 10/03/19 10/07/19 Unknown Rx Sustenna (Nf)] Valsartan [Diovan] 1 tab PO DAILY #30 10/03/19 01/24/20 Unknown Rx clonazePAM 0.5 mg PO QHS #30 10/03/19 01/24/20 Unknown Rx clonazePAM [KlonoPIN] 0.25 mg PO QAM #30 10/03/19 01/24/20 Unknown Rx Melatonin [Melatonin 5MG TAB] 5 mg PO QHS #30 tablet 10/10/20 Unknown Rx risperiDONE [RisperDAL] 1 mg PO BID 30 Days #60 tab 10/10/20 Unknown Rx traZODone [Desyrel] 50 mg PO QHS PRN #30 10/10/20 Unknown Rx Active Meds: Active Medications Amlodipine Besylate (Amlodipine 5 Mg Tab) 2.5 mg PO DAILY IMER Clonazepam (Clonazepam 0.5 Mg Tab) 0.5 mg PO BID IMER Risperidone (Risperidone 0.25 Mg Tab) 0.5 mg PO BID IMER Mental Status Exam - Vital signs Last Vital Signs Temp 98.9 F 10/09/20 00:00 Pulse 91 H 10/09/20 00:00 Resp 18 10/09/20 00:00 BP 149/81 10/09/20 00:00 Pulse Ox 100 10/09/20 00:00 Results Result Diagrams: 10/05/20 06:36 10/05/20 14:05 All other labs normal.
[2020-10-10] MEDS: clonazePAM 0.5 MG TAB PO SCH ×2 (14:40→22:47)
[2020-10-10] MEDS: risperiDONE 0.25 MG TAB PO SCH ×2 (14:40→22:47)
[2020-10-10] MEDS: amLODIPine 5 MG TAB PO SCH (14:40)
--- NOTE | 2020-10-11 01:32 | Event Note ---
Date: 10/11/20 The patient was evaluated in the emergency department for symptoms described in the history of present illness. He/she was evaluated in the context of the global COVID-19 pandemic, which necessitated consideration that the patient might be at risk for infection with the virus that causes COVID-19. Institutional protocols and algorithms that pertain to the evaluation of patients at risk for COVID-19 are in a state of rapid change based on information released by regulatory bodies including the CDC and federal and state organizations. These policies and algorithms were followed during the patient's care in the emergency department. Please note that these policies, procedures and recommendations changed on a rapid basis. The patient was graciously reevaluated by the psychiatry team, who have provided prescriptions and medication recommendations for this patient. We appreciate their courtesy in evaluating this patient. Case management then reached out to patient's family, and wrote the following after discussion with the family: "pt onesimo returned my call and states they want the pt to be tranferred to [facility] because they feel she needs some time to be on the new medications before going back to her personal [facility]. pt onesimo states he has spoken with the pt field nurse case manager Javier at the personal [facility] [phone] and she also agrees with this plan. " It appears that family are still reluctant to take patient home. Patient would likely benefit from a multidisciplinary discussion, between case management, p shiray, and the patient's field nurse case manager. Therefore, we request that a multidisciplinary discussion, or psychiatry to field nurse case manager and family discussion take place, to address any additional concerns. At the moment, the patient does not appear to be any acute distress, she is resting comfortably, Vital signs unremarkable. She does not appear to have an emergent medical condition at this present time that would necessitate admission or hospitalization. It appears that the main issue here is necessity for coordination between case management, psychiatry, family, and field nurse case manager.
[2020-10-11 09:28] VITALS: BP 168/67
--- NOTE | 2020-10-11 11:02 | Progress Note ---
Subjective - Reason for Consult Consult date: 10/11/20 Reason for consult: MHE Requesting physician: ADAM ALCALA - Chief Complaint Chief complaint: Psych Progress Patient seen this AM, up alert and pacing about, still non verbal. When approached, patient would walk away to another corner in room. She appears to be calm, no verbal outburst, no physical aggression but appears withdrawn. SOCIAL HISTORY n/a REVIEW OF SYSTEMS ROS cannot be reliably obtained from the patient due to her confusion MENTAL STATUS EXAMINATION General Appearance and Behavior: Age appropriate, good hygiene, wearing appropriate clothes, good eye contact, uncooperative with questioning. Cooperation: Withdrawn Psychomotor Behavior: unremarkable and within normal limits Mood: Neutral Affect and affective range: Flat Thought Process:N/A Thought Content: N/A Speech: Normal volume, Regular rate and rhythm Intellectual Functioning: N/A Suicidal Ideation: N/A l Homicidal Ideation: N/A Impulse Control: Impaired Insight and Judgment: Impaired Memory: N/A Attention: Normal, Orientation: Alert Treatment Plan Assessment and Plan - Patient Problems (1) Negative attitude Status: Acute Patient still not communicative, but eats, sleeps and moves extremities okay. No behavioral disturbances while been here, not physically threatening or having verbal outburst. No indication fr iinpatient as her current behavior is not compelling to warrant commitment to psych treatment as family is requesting. will provide prescription for 1 month based on previous psychiatric medication on file but recommend patient to follow-up with her outpatient psychiatrist at this time for further management. MEDICATIONS: Risks, benefits and alternatives of medications discussed with the patient, questions answered and consent obtained from patient. PSYCHOTHERAPY: Supportive psychotherapy provided MEDICAL: Per primary team DELIRIUM PRECAUTIONS: Please re-orient patient frequently, keep lights on during the day, and minimize benzodiazepines and opiates as these medications could worsen patient's confusion. LICENSED PHARMACIST: DISPOSITION: Do Not Recommend acute inpatient psychiatric hospitalization at this time. Case discussed with Dr. Montero who agrees with current disposition LEGAL STATUS: voluntary FOLLOW-UP: Will sign off Thank you for the consult. Please contact with any questions and/or concerns. Mental Status Exam - Vital signs Last Vital Signs Temp 97.8 F 10/11/20 09:27 Pulse 62 10/11/20 09:27 Resp 18 10/11/20 09:27 BP 168/67 10/11/20 09:27 Pulse Ox 98 10/11/20 09:27 Assessment and Plan - Patient Problems (1) Negative attitude Status: Acute
[2020-10-11] MEDS: risperiDONE 0.25 MG TAB PO SCH ×2 (11:18→23:14)
[2020-10-11] MEDS: amLODIPine 5 MG TAB PO SCH (11:18)
[2020-10-11] MEDS: clonazePAM 0.5 MG TAB PO SCH ×2 (11:18→23:12)
[2020-10-12] MEDS ORDERED: HALOPERIDOL LACTATE 5 MG/1 ML INJ IM ONE (01:01)
--- NOTE | 2020-10-12 01:17 | Event Note ---
Date: 10/12/20 The patient was evaluated in the emergency department for symptoms described in the history of present illness. He/she was evaluated in the context of the global COVID-19 pandemic, which necessitated consideration that the patient might be at risk for infection with the virus that causes COVID-19. Institutional protocols and algorithms that pertain to the evaluation of patients at risk for COVID-19 are in a state of rapid change based on information released by regulatory bodies including the CDC and federal and state organizations. These policies and algorithms were followed during the patient's care in the emergency department. Please note that these policies, procedures and recommendations changed on a rapid basis. Patient reportedly accepted to the fifth floor psychiatric unit. Family has reportedly signed paperwork. Patient sitting in chair. She does not want to get up and go to the wheelchair. We explained to the patient that was very important for her to walk to the wheelchair, and allow us to transport her to the psychiatric unit. Patient is refusing. Patient does not appear to have decision-making capacity at this time. She is free from distracting injury. Patient medicated with haloperidol to facilitate transportation to fifth floor. She is currently breathing spontaneously and she is in no acute distress. We will order pulse oximetry portably, pending transportation
== END 2020-10-12 02:20 | disposition home or self-care (01) ==
LOC: ED 05:55
DX: R45.4 Irritability and anger (principal); Z20.822 Contact with and (suspected) exposure to COVID-19; I10 Essential (primary) hypertension; E11.9 Type 2 diabetes mellitus without complications; F20.9 Schizophrenia, unspecified; Z79.899 Other long term (current) drug therapy
CPT/HCPCS: 36415; 80053; 84132; 85025; 99284; J1630; U0003; 80320; G0480